=== PATIENT | female | born 1980 | race Caucasian/White ===

== ENCOUNTER 2023-04-13 13:55 | Emergency (ER) | payer OTHER, SELFPAY ==
[2023-04-13 14:01] VITALS: BP 134/83; PULSE 97; RESP 18; TEMP 36.8; O2SAT 98; BMI 27.4
--- NOTE | 2023-04-13 14:24 | ED.FEMALEGU1 ---
HPI - Female Genitourinary General Chief complaint: Urogenital-Female Stated complaint: PAIN ON L SIDE/POSS. UTI & R FOOT NEEDS XRAY Time Seen by Provider: 04/13/23 14:08 Source: patient Mode of arrival: walk-in Limitations: no limitations History of Present Illness HPI Narrative: urinary symptoms suggestive of UTI began last night - she has prior history of UTI and reported burning and increased urgency and frequency. She then developed pain in the left upper levic and left lower abdomen this morning. She had been diagnosed with ovarian cysts several years ago. No prior diagnosis of kidney stones. No nausea, vomiting, fever or chills. Nothing taken for the pain. Related Data Allergies Allergy/AdvReac Type Severity Reaction Status Date / Time Penicillins Allergy Intermediate Verified 04/13/23 14:03 Sulfa (Sulfonamide Allergy Intermediate Verified 04/13/23 14:03 Antibiotics) Exam Narrative Exam Narrative: Nurses notes and vital signs reviewed and patient is not hypoxic. afebrile General: Well-appearing and in no apparent distress. Skin: Warm, dry, no pallor noted. No rash. Head: Normocephalic, atraumatic. Eye: Pupils are equal, round and EOMI. No scleral icterus. Cardiovascular: Regular Rate and Rhythm without murmur, gallop or rub. Respiratory: No accessory muscle use or respiratory distress. Lungs are clear to auscultation, no wheezing, rales or rhonchi Back: No CVA tenderness Musculoskeletal: normal ROM. Bony and soft tissue tenderness to the right 5th toe without any right mid-foot or 5th metatarsal tenderness GI: Abdomen is soft, non-distended. Normal bowel sounds. No abdominal or adnexal masses appreciated. LLQ tenderness to palpation. No rebound, guarding, or rigidity noted. Neurological: A&O x4. No cranial nerve dysfunction observed. No truncal ataxia. Moves all extremities. Sensation intact. Psychiatric: Cooperative and interactive. Normal mood and affect. Constitutional Vital Signs, click to edit/add: Last Vital Signs Temp 98.2 F 04/13/23 14:01 Pulse 97 H 04/13/23 14:01 Resp 18 04/13/23 14:01 BP 134/83 04/13/23 14:01 Pulse Ox 98 04/13/23 14:01 O2 Del Method Room Air 04/13/23 14:01 Course Vital Signs Vital signs: Vital Signs Temperature 98.2 F 04/13/23 14:01 Pulse Rate 97 H 04/13/23 14:01 Respiratory Rate 18 04/13/23 14:01 Blood Pressure 134/83 04/13/23 14:01 Pulse Oximetry 98 04/13/23 14:01 Oxygen Delivery Method Room Air 04/13/23 14:01 Temperature 98.2 F 04/13/23 14:01 Pulse Rate 97 H 04/13/23 14:01 Respiratory Rate 18 04/13/23 14:01 Blood Pressure 134/83 04/13/23 14:01 Pulse Oximetry 98 04/13/23 14:01 Oxygen Delivery Method Room Air 04/13/23 14:01 MDM - Female Genitourinary MDM Narrative Medical decision making narrative: Patient's urine sent for testing and she was found to have UTI. CT abd/pelvis revealed, according to the radiologist. She was informed of results and discharged home with prescription for Cipro. Lab Data Attestation: I reviewed the patient's lab results. Labs: Lab Results 04/13/23 Range/Units 14:22 Urine Color Brown A (YELLOW) Urine Clarity Clear (CLEAR) Urine pH 6.0 (5.0-9.0) Ur Specific [place] 1.025 (1.005-1.025) Urine Protein 30 A (NEG/TRACE) mg/dL Urine Glucose (UA) Negative (NEGATIVE) mg/dL Urine Ketones Negative (NEGATIVE) mg/dL Urine Occult Blood Moderate A (NEGATIVE) Urine Nitrite Negative (NEGATIVE) Urine Bilirubin Negative (NEGATIVE) Urine Urobilinogen 0.2 (0.2-1.0) EU/dL Ur Leukocyte Esterase Moderate A (NEGATIVE) Urine RBC 10-20 A (0-2) #/HPF Urine WBC 20-50 A (NONE SEEN) #/HPF Ur Squamous Epith Cells Moderate A (NONE/RARE) #/LPF Urine Crystals None seen (None Seen) #/HPF Urine Bacteria Trace A (NONE SEEN) #/HPF Urine Casts None seen (NONE SEEN) #/LPF Urine Mucus Trace A (NONE SEEN) Ur Culture Indicated? Yes Imaging Data CT scan - abdomen: Radiologist's impression: Patient Name: SUSANA LOYOLA MRN: [id number] date: 1980 Sex: F Assigned Patient Location: ER Current Patient Location: ER Accession/Order Number: [id number] Exam Date: 04/13/2023 14:54 Report Date: 04/13/2023 15:12 At the request of: ALLYSSA DE LA CRUZ Procedure: CT abdomen pelvis wo con CT abdomen pelvis wo con CLINICAL HISTORY: Left flank/left lower quadrant abdominal pain. Dysuria. Urinary tract infection. COMPARISON: None Available. TECHNIQUE: No IV contrast axial CT scan from lung bases through symphysis pubis. Lack of IV contrast limits evaluation of solid organs. Oral contrast was not administered. Coronal and sagittal reconstructed images generated. Dose reduction techniques were achieved by using automated exposure control and/or adjustment of mA and/or kV according to patient size and/or use of iterative reconstruction technique. FINDINGS: CT ABDOMEN FINDINGS: Normal heart size. Lung bases clear. Liver and spleen normal in size. Normal sized adrenal glands. Gallbladder and pancreas unremarkable. No renal stones or hydronephrosis. No perinephric edema. Normal caliber abdominal aorta. GI tract nondilated without obstruction. Appendix negative. No significant inflammatory changes or ascites. CT PELVIS FINDINGS: Uterus and ovaries unremarkable for age except for intrauterine device in place. Urinary bladder not well distended but question mild wall thickening and congestion. No bladder stones. No acute bony process. IMPRESSION: Question bladder wall thickening and congestion versus incomplete distention. For possible cystitis changes but correlate with urinalysis. No renal stones, hydronephrosis, or perinephric edema. Intrauterine device. No other acute process seen. Electronically authenticated by: SOCORRO CHIANG Date: 04/13/2023 15:12 Discharge Plan Discharge Chief Complaint: Urogenital-Female Clinical Impression: Urinary tract infection, Abdominal pain Patient Disposition: Home, Self-Care Time of Disposition Decision: 15:34 Instructions: Acute Urinary Retention in Women (ED), Abdominal Pain (ED) Stand Alone Forms: Portal Instructions Referrals: BEA ALFORD [Primary Care Provider] - 1 week
[2023-04-13 14:50] LABS: Bilirubin Urine NEGATIVE (NEGATIVE); Blood Urine MODERATE (NEGATIVE); Clarity Urine CLEAR (CLEAR); Color Urine BROWN (YELLOW); Glucose Urine UA NEGATIVE (NEGATIVE); Ketones Urine NEGATIVE (NEGATIVE); Leukocyte Esterase Urine MODERATE (NEGATIVE); Nitrite Urine NEGATIVE (NEGATIVE); Protein Urine 30 mg/dL (NEG/TRACE); Specific Gravity Urine 1.025 (1.005-1.025); Urobilinogen Urine 0.2 EU/dL (0.2-1.0)
[2023-04-13 14:59] LABS: Urine Microscopic Indicated YES
[2023-04-13 15:01] LABS: Bacteria Urine TRACE #/HPF (NONE SEEN); Cast Seen? NONE SEEN #/LPF (NONE SEEN); Crystals Seen? None Seen #/HPF (None Seen); Mucus Urine TRACE (NONE SEEN); Squamous Epithelial Cell Urine MODERATE #/LPF (NONE/RARE); Urine Culture Indicated YES; WBC Urine 20-50 #/HPF (NONE SEEN)
--- NOTE | 2023-04-15 11:34 | PC.NURSE ---
04/15/[address] coyle reviewed pt urine c+s from 04/11/23 called and pt called back updated need to stop macrobid start keflex 500 mg po TID times 10 days called to [facility]im[facility] alvares in [place] per pt request. sent c+s result to dr granados. Leo Rice RN
--- NOTE | 2023-04-15 11:37 | PC.NURSE ---
04/15/[address] coyle reviewed c+s from urine on 04/13/[address] this time. Myron GANDARA
== END 2023-04-13 15:48 | disposition home or self-care (01) ==
PROVIDERS: Emergency Provider Emergency Medicine; PCP Nurse Practitioner Family
DX: R10.9 Unspecified abdominal pain (principal); N39.0 Urinary tract infection, site not specified; S99.921A Unspecified injury of right foot, initial encounter; W22.8XXA Striking against or struck by other objects, initial encounter; Z87.440 Personal history of urinary (tract) infections
CPT/HCPCS: 74176; 81001; 87086; 87150; 87186; 99284

== ENCOUNTER 2023-06-25 02:57 | Emergency (ER) | payer OTHER, SELFPAY ==
[2023-06-25 02:58] VITALS: BP 141/95; PULSE 83; RESP 16; TEMP 36.6; O2SAT 97; BMI 28.1
--- NOTE | 2023-06-25 03:20 | ED.UPPEXIN1 ---
HPI - Extremity Injury (Upper) General Chief Complaint: Extremity Injury, Upper Stated Complaint: l index finger pain Time Seen by Provider: 06/25/23 03:05 Source: patient Mode of arrival: walk-in History of Present Illness HPI narrative: Presenting to us with a left index pain that started after she pulled a piece of skin by her mouth the patient does have the habit of biting her nails, the patient is complaining of pain that started tonight and woke her up from sleep she denies any other complaints before this incident happened late last night There is no other complaints the patient denies any other pathology Related Data Home Medications Medication Instructions Recorded Confirmed fluticasone propionate 50 intranasal 06/25/23 mcg/actuation nasal spray,suspension minoxidil 2.5 mg tablet mg 06/25/23 pantoprazole 40 mg tablet,delayed mg PO 06/25/23 release rizatriptan 10 mg tablet mg 06/25/23 spironolactone 50 mg tablet mg 06/25/23 Previous Rx's Medication Instructions Recorded phenazopyridine 200 mg tablet 200 mg PO Q8H PRN dysuria 6 doses 04/13/23 (Pyridium) #6 tabs doxycycline hyclate 100 mg capsule 100 mg PO BID 7 days #14 caps 06/25/23 ibuprofen 600 mg tablet 600 mg PO TID PRN pain #20 tabs 06/25/23 Allergies Allergy/AdvReac Type Severity Reaction Status Date / Time Penicillins Allergy Intermediate Verified 04/13/23 14:03 Sulfa (Sulfonamide Allergy Intermediate Verified 04/13/23 14:03 Antibiotics) Review of Systems ROS Status of ROS 10 or more systems reviewed and unremarkable except as noted in history and below [facility] Social History Smoking status: Current every day smoker Exam Narrative Exam Narrative: Nurses notes and vital signs reviewed and patient is not hypoxic. General: Well-appearing and in no apparent distress. Skin: Warm, dry, no pallor noted. No rash. Head: Normocephalic, atraumatic. Neck: Supple, non-tender. Eye: Pupils are equal, round and EOMI. No scleral icterus. Ears, Nose, Mouth, and Throat: TM are clear, no nasal mucosal hypertrophy. Oral mucosa is moist, no posterior oropharynx erythema, uvula is mid-line Cardiovascular: Regular Rate and Rhythm without murmur, gallop or rub. Respiratory: No accessory muscle use or respiratory distress. Lungs are clear to auscultation, no wheezing, rales or rhonchi Chest Wall: no tenderness Back: No midline thoracic or lumbar vertebral tenderness. No CVA tenderness Musculoskeletal: normal ROM, no calf or popliteal tenderness the patient have a mild swelling to the lateral side of the nail bed , there is redness and tenderness no pus collection GI: Abdomen is soft, non-distended. Normal bowel sounds. No masses appreciated. No tenderness to palpation. No rebound, guarding, or rigidity noted. Neurological: A&O x4. No cranial nerve dysfunction observed. No truncal ataxia. Moves all extremities. Sensation intact. Psychiatric: Cooperative and interactive. Normal mood and affect. Constitutional Vital Signs, click to edit/add: Last Vital Signs Temp 97.8 F 06/25/23 02:58 Pulse 83 06/25/23 02:58 Resp 16 06/25/23 02:58 BP 141/95 H 06/25/23 02:58 Pulse Ox 97 06/25/23 02:58 Course Vital Signs Vital signs: Vital Signs Temperature 97.8 F 06/25/23 02:58 Pulse Rate 83 06/25/23 02:58 Respiratory Rate 16 06/25/23 02:58 Blood Pressure 141/95 H 06/25/23 02:58 Pulse Oximetry 97 06/25/23 02:58 Temperature 97.8 F 06/25/23 02:58 Pulse Rate 83 06/25/23 02:58 Respiratory Rate 16 06/25/23 02:58 Blood Pressure 141/95 H 06/25/23 02:58 Pulse Oximetry 97 06/25/23 02:58 MDM - Extremity Injury (Upper) MDM Narrative Medical decision making narrative: Patient presenting to us with paronychia mild right now she was started on antibiotic as well as NSAID for pain management The patient to continue putting her finger in warm water for the next 2 days The patient is to follow up with primary care physician in next 2-3 days or to return to the emergency department should any of the signs or symptoms worsen or new symptoms develop. The patient agrees with the following Diagnosis and Treatment plan and the patient will be discharged home. Discharge Plan Discharge Chief Complaint: Extremity Injury, Upper Clinical Impression: Paronychia Patient Disposition: Home, Self-Care Time of Disposition Decision: 03:13 Condition: Good Prescriptions / Home Meds: New doxycycline hyclate 100 mg capsule 100 mg PO BID 7 Days Qty: 14 0RF ibuprofen 600 mg tablet 600 mg PO TID PRN (Reason: pain) Qty: 20 0RF No Action rizatriptan 10 mg tablet minoxidil 2.5 mg tablet pantoprazole 40 mg tablet,delayed release (DR/EC) PO fluticasone propionate 50 mcg/actuation spray,suspension INTRANASAL spironolactone 50 mg tablet phenazopyridine [Pyridium] 200 mg tablet 200 mg PO Q8H PRN (Reason: dysuria) Qty: 6 0RF Instructions: Paronychia (ED) Stand Alone Forms: Portal Instructions Referrals: BEA ALFORD [Primary Care Provider] - 1 week
[2023-06-25] MEDS: DOXYCYCLINE MONOHYDRATE 100 MG CAPSULE PO (03:29)
== END 2023-06-25 03:36 | disposition home or self-care (01) ==
LOC: ER 03:20
PROVIDERS: Emergency Provider Emergency Medicine; PCP Nurse Practitioner Family
DX: L03.012 Cellulitis of left finger (principal); Z79.899 Other long term (current) drug therapy; F17.210 Nicotine dependence, cigarettes, uncomplicated
CPT/HCPCS: 99283

== ENCOUNTER 2024-11-12 07:36 | Emergency (ER) | payer BC, SELFPAY ==
[2024-11-12 07:45] VITALS: BP 133/88; PULSE 88; TEMP 36.8; O2SAT 98; BMI 29.0
--- OUTSIDE RECORDS SUMMARY | 2024-11-12 07:45 | XMS_ITS | CCD ---
Author Organization [facility] Care Team Providers Care Brand Protection Manager Name Role Phone Melquiades Gupta Unavailable Unavailable [place] Attending Unavailable [place] Referring Unavailable Bozena Carlson Primary Care Unavaila Nunu Sorto Attending Unavailable RobynBozena Referring Unavaila ble Robyn, Bozena Chang Primary Care Unavaila Nunu Sorto Attending Unavailable *SELF, REFERRED Referring Unavailable Robyn, Bozena Chang Primary Care Unavaila MARCELLO Chiang Attending Unavailable FENOHR, JULIETH M Primary Care Unavailable FENOHR, JULIETH M Attending Unavailable FENOHR, JULIETH M Referring Unavailable FENOHR, JULIETH M Primary Care Unavailable NATALYA SONI Attending Unavailable FENOHR, JULIETH M Primary Care Unavailable SHWETA NAVA Attending Unavailable FARFAN, KHUSHBU Primary Care Unavailable TAMMY AMAYA Attending Unavailable FARFAN, KHUSHBU Primary Care Unavailable Ting Sonie Unavailable Unavailable Maribel Boone Unavailable Unavailable Farfan, Khushbu Unavailable Unavailable Kwaku, Bozena Unavailable Unavailable Robyn, Bozena M Unavailable Unavailable Fenohr, Julieth M Unavailable Unavailable FlorianWoodyer S Unavailable Unavailable Farfan, Khushbu E Unavailable Unavailable LeobardoyakKvngie A Unavailable Unavailable Robyn, Bozena M Unavailable Unavailable LISA MILLER Referring Unavailable PROVIDER, UNKNOWN Admitting Unavailable PROVIDER, UNKNOWN Attending Unavailable ROBYN, BOZENA Primary Care Unavailable Shruthi Gonzalez MD Primary Care Provider [phone] Nunu Camacho CNP Unavailable [phone] Nunu Camacho Unavailable Shruthi Gonzalez MD Primary Care Provider [phone] Symone Camacho CNPnifer M Unavailable KRISTA Camachonifer Primary Care Provider MD Riley Phelan Jr Emergency Provider Shruthi Gonzalez MD Primary Care Provider [phone] Janice VICKNunu M Unavailable MISJaime, DR ARTHUR Primary Care Unavailable THANG VAZ Admitting Unavailable THANG VAZ Attending Unavailable ZANDER SHAW Consulting Unavailable OSCAR SORIA Consulting Unavailable THANG VAZ Consulting Unavailable Bozena Carlson DO Primary Care Provider Shruthi Gonzalez MD Primary Care Provider [phone] Janice VICK, Nunu Param Unavailable KRISTA Camachonifer Primary Care Provider KRISTA Camacho Attending Provider Bozena Carlson DO Primary Care Provider CYNDIE DELGADO Referring Unavailable VERA MOURA Attending Unavailable SHRUTHI GONZALEZ Primary Care Unavailable Janice VICKNunu Param Unavailable VERA TADEO Attending Unavailable BRICE ALLISON Attending Unavailable BRICE ALLISON Referring Unavailable BRICE ALLISON Attending Unavailable Janice MARIE Nunu Param Unavailable Unallocated , Noms Provider Primary Care Provi bernardo David Saleem MD Unavailable Nunu Camacho DNP Primary Care Provider Zackary Espinoza DO Emergency Provider Nunu Camacho Primary Care Unavailable Zackary Espinoza Attending Unavailable Zackary Espinoza Admitting Unavailable Allergies Allergy Classification Reported Allergen(s) Allergy Type Date of Onset Reaction(s) Facility (7 sources) Penicillins; Translations: [PENICILLINS] Drug allergy (disorder) 10-13-19 05 AOF, Difficulty Breathing [facility] Repository (6 sources) Sulfonamides (Antibiotic); Translations: [SULFA (SULFONAMIDE ANTIBIOTICS)] Drug allergy (disorder) 09-19-19 11 AOF, Difficulty Breathing [facility] Repository (4 sources) Penicillins; Translations: [Penicillins] drug allergy [facility] Work Phone: (4 sources) S[facility] (Antibiotic) [facility] (5 sources) Sulfonamides (Antibiotic); Translations: [SULFA ANTIBIOTICS] drug allergy 04-27-20 14 [facility] Repository (4 sources) Sulfonamides (Antibiotic) drug allergy [facility] Work Phone: (8 sources) Fluorescein; Translations: [FLUORESCEIN] Drug Allergy 04-19-20 20 Other: See Comments [facility] (7 sources) Penicillins Drug Allergy 10-13-19 05 Intolerance, Rash [facility] (19 sources) Sulfonamides (Antibiotic) Drug Allergy 09-19-19 11 Intolerance, Rash, Swelling, Anaphylaxis, GI intolerance, Unknown [facility] Work Phone: (4 sources) Penicillins Drug allergy Unknown [facility] Other (4 sources) sulfaSALAzine Drug Allergy Unknown [facility] Other (5 sources) Penicillins Drug Allergy 10-13-19 05 Intolerance, Rash [facility] (10 sources) Penicillin Drug Allergy 10-13-19 05 Rash, Anaphylaxis, GI intolerance, Swelling, Unknown [facility] (3 sources) Sulfonamide Drug allergy Unknown [facility] Other (1 source) Penicillin Drug Allergy [facility] Repository (1 source) Sulfonamides (Antibiotic) Drug allergy (disorder) [facility] Repository (4 sources) Procaine Drug Allergy 02-13-20 23 Anaphylaxis [facility] (4 sources) Lorri [place] Drug Allergy 04-19-20 20 Headache, Unknown [facility] (2 sources) Gadolinium-Contai naomi Contrast Medi; Translations: [Gadolinium-Conta ining Contrast Medi] Allergy to substance 10-20-19 25 [facility] (2 sources) Iodinated Contrast Media; Translations: [Iodinated Contrast Media] Allergy to substance 10-20-19 25 [facility] Medications Current Medications Medication Drug Class(es) Dates Sig (Normalized) Sig (Original) cholecalciferol 0.05 mg oral capsule (7 sources) Vitamin D Start: 07-18-2022 take 1 capsule by mouth every twenty-four hours Vitamin D3 50 MCG (2000 UT) 1 capsule Orally Once a day for 30 day(s) Jul, Active ciprofloxacin 3 mg/ml ophthalmic solution (3 sources) Quinolone Antimicrobial Start: 07-24-2017 take 1 drop(s) into the eye(s) four times daily ciprofloxacin (CILOXAN) 0.3 % ophthalmic solution Indications: Open-angle glaucoma of left eye, indeterminate stage, unspecified open-angle glaucoma type Place 1 Drop in the left eye 4 times daily. 1 Bottle 3 07/24/2017 Active ferrous sulfate 325 mg oral tablet (7 sources) Start: 07-18-2022 take 1 tablet by mouth once daily at mealtime Ferrous Sulfate 325 (65 Fe) MG 1 tablet Orally daily with food and vitamin C for 30 day(s) Jul, Active Start: 07-18-2022 take 1 tablet by nghia once daily at mealtime Ferrous Sulfate 325 (65 Fe) MG 1 tablet Orally daily with food and vitamin C for 30 day(s) Jul, Active flurbiprofen sodium 0.3 mg/ml ophthalmic solution (3 sources) Nonsteroidal Anti-inflammatory Drug Start: 01-20-2018 take 1 drop(s) into the eye(s) four times daily flurbiprofen (OCUFEN) 0.03 % ophthalmic solution Place 1 Drop in the left eye 4 times daily. 1 Bottle 0 01/20/2018 Active fluticasone propionate 0.05 mg/actuat metered dose nasal spray (20 sources) Corticosteroid Start: 06-03-2021 Fluticasone Propionate (Flonase Allergy Relief) 50 mcg/actuation Witten,Suspension Active 1 SPRAY INTRANASAL Daily June 02, 2021 11:00pm Start: 02-25-2020 take 2 spray(s) by out once daily fluticasone (FLONASE) 50 mcg/actuation nasal spray Use 2 Sprays in each nostril once daily. Rinse mouth after use. 1 Bottle 2 02/25/2020 Active Start: 06-02-2018 take 2 spray(s) nasa l route once daily Fluticasone Propionate 50 MCG/ACT Nasal Suspension USE 2 SPRAYS IN EACH NOSTRIL ONCE DAILY Quantity: 16 Refills: 5 Khushbu Farfan MD Start : 02-Jun-2018 Active fluticasone (Javier nase) 50 MCG/ACT nasal spray 1 spray. Active take 2 spray(s) nasa l route once daily Flonase Allergy Relief 50 MCG/ACT 2 sprays in each nostril Nasally Once a day for 30 day(s) Active Comment on above: Use 2 Sprays in each nostril once daily. Rinse mouth after use. ibuprofen 600 mg oral tablet (15 sources) Nonsteroidal Anti-inflammatory Drug Start: 7 take 1 tablet by mouth every eight hours as needed for pain Ibuprofen 600 mg tablet Active 600 MG PO Q8H as needed for pain April 01, 2022 11:00pm 24 hr metoprolol succinate 25 mg extended release oral tablet (10 sources) beta-Adrenergic Emerald Start: take 1 tablet by mouth every twenty-four hours Metoprolol Succinate 25 mg tablet extended release 24 hr Active MG PO June 02, 2021 11:00pm Start: 06-03-2021 Metoprolol Suc cinate Active MG PO June 03, 2021 12:00am Start: 05-16-2021 End: 06-11-2022 take 1 tablet by mouth once daily metoprolol succinate ER (TOPROL XL) 25 mg 24 hr tablet Take 1 tablet by mouth once daily. 90 tablet 3 05/16/2021 06/11/2022 Discontinued (Course of therapy completed) Comment on above: Take 1 tablet by nghia once daily. moxifloxacin 5 mg/ml ophthalmic solution (3 sources) Quinolone Antimicrobial Start: 01-21-20 take 1 drop(s) into the eye(s) four times daily moxifloxacin (VIGAMOX) 0.5 % ophthalmic solution Place 1 Drop in the left eye 4 times daily. 1 Bottle 0 01/20/2018 Active omeprazole 20 mg delayed release oral capsule (18 sources) Proton Pump Inhibitor Start: 12-20-19 End: 12-20-19 23 take 1 capsule by mouth once daily omeprazole (PRILOSEC) 20 mg capsule Indications: GERD without esophagitis Take 1 capsule by mouth once daily. 90 capsule 3 12/19/2021 06/11/2022 Discontinued (Course of therapy completed) Start: 04-11-2017 take 1 capsule by mo ut once daily omeprazole (PRILOSEC) 40 MG capsule TAKE ONE CAPSULE BY MOUTH DAILY 30 Capsule 2 06/27/2018 Active Comment on above: Take 1 capsule by mo ut once daily. Para-John (12 sources) Para-John Active prednisoLONE acetate 10 mg/ml ophthalmic suspension (6 sources) Corticosteroid Start: 01-21-20 18 prednisoLONE acetate (PRED FORTE) 1 % ophthalmic suspension Place 1 Drop in the left eye every 2 hours while awake. 1 Bottle 0 01/20/2018 Active Vit-Fe Fumarate-FA (VOL-PLUS) 27-1 MG TABS (3 sources) Start: 08-31-20 16 take 1 tablet by mouth once daily Vit-Fe Fumarate-FA (VOL-PLUS) 27-1 MG TABS Take 1 Tablet by mouth daily. 30 Tablet 11 08/31/2016 Active rizatriptan 10 mg oral tablet (20 sources) Serotonin-1b and Serotonin-1d Receptor Agonist Start: 10-19-19 25 End: 11-19-19 25 rizatriptan (Maxalt) 10 MG tablet Indications: Cervicogenic migraine (CMS/HCC) Take 1 tablet (10 mg) by mouth 1 (one) time if needed for migraine May repeat in 2 hours if unresolved. Do not exceed 30 mg in 24 hours. 9 tablet 5 11/11/2024 Active Start: 06-03-2021 Rizatriptan Ac tive MG TABLET June 03, 2021 12:00am Start: 04-25-2018 End: 07-01-2023 Rizatriptan 10 mg tablet Act vazquez MG TABLET June 02, 2021 11:00pm Comment on above: 1 tab at earliest si gn of migraine. May repeat once in 2 hours if needed. Give max allowed per insurance. 1 tab at earliest si gn of migraine. May repeat once in 2 hours if needed. No more than 2 doses in 24 hours. Max 9 days a month. sodium chloride 0.111 meq/ml nasal solution (3 sources) Start: 11-17-19 17 sodium chloride (SALINE MIST) 0.65 % nasal spray Indications: Acute bacterial sinusitis Witten 1 Witten into each nostril as needed for Congestion. 1 Bottle 3 11/16/2016 Active spironolactone 50 mg oral tablet (5 sources) Aldosterone Antagonist take 1 tablet by mouth every twenty-four hours Spironolactone 50 MG 1 tablet Orally Once a day Active SUMAtriptan (3 sources) Serotonin-1b and Serotonin-1d Receptor Agonist SUMAtriptan Succinat e (IMITREX ORAL) Take by mouth. 0 Active Completed/Discontinued Medications Medication Drug Class(es) Dates Sig (Normalized) Sig (Original) amitriptyline hydrochloride 10 mg oral tablet (1 source) Tricyclic Antidepressant Start: 07-04-2023 take 1 tablet by mouth once daily at bedtime amitriptyline (ELAVIL) 10 mg tablet Take 1 tablet by mouth daily at bedtime. 90 tablet 3 07/04/2023 Active Comment on above: Take 1 tablet by nghia th daily at bedtime. B Complex-Folic Acid (B COMPLEX 100) 0.4 mg tab (7 sources) Start: 05-16-2021 take 1 tablet by mouth once daily B Complex-Folic Acid (B COMPLEX 100) 0.4 mg tab Take 1 tablet by mouth once daily. 0 05/16/2021 Active Comment on above: Take 1 tablet by nghia th once daily. copper 313 mg drug implant (11 sources) Copper-containing Intrauterine Device Start: 07-14-2020 copper (PARAGARD T 380A) 380 square mm intrauterine device 1 Intra Uterine Device by INTRAUTERINE route continuous. IUD lot #: [id number] Exp date: 2025 1 Intra Uterine Device 0 07/14/2020 Active copper (Paragard ) IUD Paragard Intrauterine Copper Active Comment on above: 1 Intra Uterine Sayra ce by INTRAUTERINE route continuous. IUD lot #: [id number] Exp date: 2025 doxycycline hyclate 100 mg oral tablet (8 sources) Tetracycline-class Drug Start: take 1 tablet by mouth every twelve hours Doxycycline Hyclate 100 MG 1 tablet Orally every 12 hrs for 10 days Sep, Not-Taking Start: 11-16-2021 take 1 tablet by nghia th every twelve hours Doxycycline Hyclate 100 MG 1 tablet Orally every 12 hrs for 10 days Oct, Active loratadine 10 mg oral tablet (20 sources) Start: 12-06-2016 take 1 tablet by mouth once daily as needed loratadine (CLARITIN) 10 mg tablet Take 1 tablet by mouth once daily as needed for Cold/Allergy Symptoms. 90 tablet 1 09/28/2020 Active Comment on above: Take 1 tablet by nghia once daily as needed for Cold/Allergy Symptoms. magnesium oxide 400 mg oral tablet (7 sources) Start: 05-16-2021 take 1 tablet by mouth once daily magnesium oxide (MAG-OX) 400 mg (241.3 mg magnesium) tablet Take 1 tablet by mouth once daily. 0 05/16/2021 Active Comment on above: Take 1 tablet by nghia once daily. methylPREDNISolone (1 source) Corticosteroid Start: 07-04-2023 methylPREDNISolone (MEDROL, WEN,) 4 mg Dose-Pack Take as directed. 21 tablet 0 07/04/2023 Active Comment on above: Take as directed. montelukast 10 mg oral tablet (4 sources) Leukotriene Receptor Antagonist Start: 04-16-2018 take 1 tablet by mouth once daily Montelukast Sodium 10 MG Oral Tablet TAKE 1 TABLET DAILY DIRECTED. Quantity: 30 Refills: 5 Natalya Soni MD Start : 16-Apr-2018 Active mupirocin 0.02 mg/mg topical ointment (3 sources) RNA Synthetase Inhibitor Antibacterial Start: 06-29-2019 Mupirocin 2 % External Ointment APPLY THIN FILM TO AFFECTED AREA 3 TIMES DAILY FOR 7 TO 10 DAYS. Quantity: 1 Refills: 0 Maribel Boone DO Start : 29-Jun-2019 Active 22 GM Tube Prenate Mini 18-0.6-0.4-350 MG Oral Capsule (4 sources) Start: 06-09-2019 Prenate Mini 18-0.6-0.4-350 MG Oral Capsule Quantity: 30 Refills: 0 Start : 09-Jun-2019 Active Start: 06-09-2019 Prenate Mini 1 8-0.6-0.4-350 MG Oral Capsule Quantity: 30 Refills: 0 DO Start : 09-Jun-2019 Active triamcinolone acetonide 0.03493 mg/mg topical ointment (3 sources) Corticosteroid Start: 06-29-2019 Triamcinolone Acetonide 0.025 % External Ointment APPLY 2-3 TIMES DAILY TO AFFECTED AREA(S) UNTIL RESOLVED Quantity: 1 Refills: 0 Maribel Boone DO Start : 29-Jun-2019 Active 80 GM Tube 24 hr verapamil hydrochloride 120 mg extended release oral capsule (3 sources) Calcium Channel Emerald Start: 06-11-2022 take 1 capsule by mouth once daily at bedtime verapamil ER (VERELAN) 120 mg 24 hr capsule Take 1 capsule by mouth daily at bedtime. 30 capsule 11 06/11/2022 Active Comment on above: Take 1 capsule by mo uth daily at bedtime. Problems Active Problems Problem Classification Problem Date Documented Da te Episodic/Chronic Alcohol-related disorders (4 sources) History of alcohol abuse; Translations: [History of alcohol abuse] Episodic Anal and rectal conditions (4 sources) Perirectal abscess; Translations: [History of Perirectal abscess] Episodic Anxiety disorders (20 sources) Mixed anxiety and depressive disorder; Translations: [Generalized anxiety disorder] Onset: 4 Resolved: 6 07-25-2020 Chronic Blindness and vision defects (4 sources) Visual impairment; Translations: [Vision loss of left eye] Chronic Cataract (15 sources) Bilateral cataracts; Translations: [Unspecified cataract] Onset: 8 11-13-2017 Chronic Conditions associated with dizziness or vertigo (4 sources) Vertigo; Translations: [Vertigo] Episodic Deficiency and other anemia (7 sources) Iron deficiency anemia; Translations: [Other iron deficiency anemias] Episodic Deficiency and other anemia (1 source) Other iron deficiency anemias Episodic E Codes: Fall (1 source) Fall (on)(from) sidewalk curb, initial encounter; Translations: [FALL ON FROM SIDEWALK CURB INITIAL] Onset: 3 Episodic Esophageal disorders (11 sources) Gastroesophageal reflux disease; Translations: [Gastroesophageal reflux disease without esophagitis] Onset: 1 12-02-2020 Chronic Essential hypertension (20 sources) Benign essential hypertension; Translations: [Essential hypertension] Onset: 1 12-02-2020 Chronic Genitourinary symptoms and ill-defined conditions (4 sources) History of urinary tract infection; Translations: [History of urinary tract infection] Episodic Glaucoma (20 sources) Glaucoma; Translations: [Unspecified glaucoma] Onset: 7 07-30-2017 Chronic Headache; including migraine (20 sources) Migraine; Translations: [Refractory migraine without aura] Onset: 8 03-14-2018 Chronic Hypertension complicating ; childbirth and the puerperium (7 sources) Pre-existing hypertension in obstetric context; Translations: [Unspecified pre-existing hypertension complicating , unspecified trimester] Onset: 9 10-10-2019 Chronic Inflammation; infection of eye (except that caused by tuberculosis or sexually transmitteddisease) (4 sources) Intermediate uveitis; Translations: [Uveitis, intermediate] Episodic Joint disorders and dislocations; trauma-related (4 sources) Traumatic dislocation of ankle joint; Translations: [History of Ankle dislocation, right, sequela] Episodic Mood disorders (20 sources) Bipolar II disorder; Translations: [Bipolar II disorder, most recent episode major depressive] Onset: 4 07-25-2020 Chronic Nonspecific chest pain (4 sources) Chest pain; Translations: [Other chest pain] Episodic Other aftercare (1 source) 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; Translations: [OTH INTERMEDIATE CURRENT DRUG THERAPY] Onset: 3 Episodic Other circulatory disease (4 sources) Elevated blood-pressure reading without diagnosis of hypertension; Translations: [Elevated blood pressure reading without diagnosis of hypertension] Episodic Other connective tissue disease (4 sources) Plantar fasciitis; Translations: [Plantar fasciitis, bilateral] Episodic Other connective tissue disease (8 sources) Calcaneal spur; Translations: [Calcaneal spur of left foot] Episodic Other connective tissue disease (4 sources) H/O: musculoskeletal disease; Translations: [History of sprain of ankle] Episodic Other connective tissue disease (4 sources) Prepatellar bursitis; Translations: [Prepatellar bursitis of left knee] Episodic Other connective tissue disease (3 sources) Infrapatellar bursitis of left knee; Translations: [Other bursitis of knee, left knee] 04-02-2022 Episodic Comment on above: Problem List clean-u p per request of Phys. EHR Cmte Other ear and sense organ disorders (4 sources) Hearing loss of left ear; Translations: [Hearing loss, left] Chronic Other ear and sense organ disorders (4 sources) Unilateral sensorineural hearing loss with unrestricted hearing on the contralateral side; Translations: [Sensorineural hearing loss (SNHL) of left ear with unrestricted hearing of right ear] Episodic Other female genital disorders (4 sources) Postcoital bleeding; Translations: [History of PCB (post coital bleeding)] Chronic Other female genital disorders (1 source) Abnormal uterine and vaginal bleeding, unspecified; Translations: [Abnormal uterine and vaginal bleeding, unspecified] Onset: 5 Chronic Other female genital disorders (4 sources) History of abnormal cervical Papanicolaou smear ; Translations: [History of abnormal cervical Papanicolaou smear] Episodic Other gastrointestinal disorders (12 sources) Heartburn; Translations: [Heartburn] Episodic Other gastrointestinal disorders (1 source) Heartburn Episodic Other infections; including parasitic (4 sources) H/O: viral illness; Translations: [History of viral infection] Episodic Other injuries and conditions due to external causes (3 sources) Injury of face; Translations: [Unspecified injury of face, initial encounter] 06-03-2021 Episodic Comment on above: Problem List clean-u p per request of Phys. EHR Cmte Other nervous system disorders (4 sources) Personal history of other diseases of the nervous system and sense organs; Translations: [History of uveitis] Episodic Other nervous system disorders (3 sources) Paresthesia; Translations: [Paresthesia of skin] 04-02-2022 Episodic Comment on above: Problem List clean-u p per request of Phys. 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] Episodic Other non-traumatic joint disorders (4 sources) Pain in left knee; Translations: [PAIN IN LEFT KNEE] Onset: 3 Episodic Other non-traumatic joint disorders (1 source) Effusion, right elbow; Translations: [EFFUSION RIGHT ELBOW] Onset: 3 Episodic Other nutritional; endocrine; and metabolic disorders (4 sources) Body mass index 25-29 - overweight; Translations: [BMI 27.0-27.9,adult] Chronic Other nutritional; endocrine; and metabolic disorders (12 sources) Body mass index 25-29 - overweight; Translations: [Overweight] Episodic Other screening for suspected conditions (not mental disorders or infectious disease) (6 sources) care status; Translations: [Patient encounter status] Episodic Other skin disorders (1 source) Nonscarring hair loss, unspecified Episodic Other upper respiratory disease (10 sources) Seasonal allergic rhinitis; Translations: [Other allergic rhinitis] Chronic Other upper respiratory disease (1 source) Other allergic rhinitis Chronic Other upper respiratory disease (3 sources) Perennial allergic rhinitis with seasonal variation; Translations: [Other allergic rhinitis] Onset: 5 02-01-2015 Chronic Other upper respiratory infections (2 sources) Acute maxillary sinusitis, unspecified Onset: 2 Resolved: 2 Episodic Otitis media and related conditions (4 sources) Acute otitis media; Translations: [Acute otitis media] Episodic Residual codes; unclassified (6 sources) Nicotine-filled electronic cigarette user; Translations: [Tobacco use] Episodic Residual codes; unclassified (1 source) Tobacco use Episodic Rheumatoid arthritis and related disease (16 sources) Juvenile rheumatoid arthritis; Translations: [Unspecified juvenile rheumatoid arthritis of unspecified site] Chronic Skin and subcutaneous tissue infections (8 sources) Abscess of buttock; Translations: [Infection of skin] Episodic Spondylosis; intervertebral disc disorders; other back problems (4 sources) Chronic low back pain; Translations: [Chronic low back pain] Episodic Sprains and strains (4 sources) Sprain of calcaneofibular ligament; Translations: [Sprain of calcaneofibular ligament of right ankle, initial encounter] Episodic Substance-related disorders (8 sources) Tobacco dependence syndrome; Translations: [Nicotine dependence, cigarettes, uncomplicated] Onset: 4 08-05-2014 Chronic Superficial injury; contusion (2 sources) Contusion of left knee, initial encounter; Translations: [Abrasion, left knee, initial encounter] Onset: 3 Episodic Viral infection (16 sources) Human papilloma virus infection; Translations: [Papillomavirus as the cause of diseases classified elsewhere] Episodic Past or Other Problems Problem Classification Problem Date Documented Date Episodic/Chronic Abdominal pain (1 source) Left upper quadrant abdominal tenderness Onset: 07-26-2021 Resolved: 07-26-2021 Episodic Contraceptive and procreative management (3 sources) Intrauterine contraceptive device in situ; Translations: [Presence of (intrauterine) contraceptive device] Onset: 08-05-2014 12-17-2018 Episodic External cause codes: Natural/environment (4 sources) Bitten or stung by nonvenomous insect and other nonvenomous arthropods, initial encounter; Translations: [Insect bite] Headache; including migraine (20 sources) Chronic daily headache; Translations: [Chronic daily headache] Onset: 03-14-2018 10-10-2019 Episodic Immunizations and screening for infectious disease (3 sources) Exposure to sexually transmissible disorder; Translations: [Contact with and (suspected) exposure to infections with a predominantly sexual mode of transmission] Onset: 02-14-2012 11-16-2016 Episodic Nutritional deficiencies (11 sources) Vitamin D deficiency; Translations: [Vitamin D deficiency, unspecified] Onset: 11-18-2014 Resolved: 09-29-2015 Chronic Other ear and sense organ disorders (3 sources) Conductive hearing loss, bilateral; Translations: [Conductive hearing loss, bilateral] Onset: 02-01-2015 Resolved: 09-29-2015 09-29-2015 Chronic Other non-traumatic joint disorders (7 sources) Hip pain; Translations: [Pain in right hip] Onset: 08-02-2019 10-10-2019 Episodic Other nutritional; endocrine; and metabolic disorders (1 source) Overweight Onset: 07-26-2021 Resolved: 07-26-2021 Episodic Unclassified (4 sources) History of influenza vaccination; Translations: [History of influenza vaccination] Unclassified (4 sources) History of clinical finding in subject; Translations: [History of itching] NEGATED: Highlighted row has not occurred!Residual codes; unclassified (20 sources) Disease Episodic Results Test Name Value Interpretation Reference Range Facility XR SHOULDER 2+ VIEWS LEFTon 12-03-2023 XR SHOULDER 2+ VIEWS LEFT EXAMINATION/TECHNIQUE: XR SHOULDER 2+ VIEWS LEFT, XR WRIST 3+ VIEWS RIGHT HISTORY: Left shoulder and right wrist pain. COMPARISON: None RESULT: Left shoulder: No acute fracture. No dislocation. Glenohumeral joint space maintained. Mild degenerative changes of the acromioclavicular joint. Acromiohumeral interval maintained. Visualized lung grossly clear. Right wrist: No evidence for acute fracture. No dislocation. Few small osteophytes. Joint spaces appear maintained. Soft tissues unremarkable. IMPRESSION: No acute osseous findings involving the left shoulder, or right wrist. ELECTRONICALLY SIGNED BY: Tom Sam MD Normal Not Available XR WRIST 3+ VIEWS RIGHTon XR WRIST 3+ VIEWS RIGHT EXAMINATION/TECHNIQUE: XR SHOULDER 2+ VIEWS LEFT, XR WRIST 3+ VIEWS RIGHT HISTORY: Left shoulder and right wrist pain. COMPARISON: None RESULT: Left shoulder: No acute fracture. No dislocation. Glenohumeral joint space maintained. Mild degenerative changes of the acromioclavicular joint. Acromiohumeral interval maintained. Visualized lung grossly clear. Right wrist: No evidence for acute fracture. No dislocation. Few small osteophytes. Joint spaces appear maintained. Soft tissues unremarkable. IMPRESSION: No acute osseous findings involving the left shoulder, or right wrist. ELECTRONICALLY SIGNED BY: Tom Sam MD Normal Not Available XR ELBOW RT MIN 3 VIEWSon XR ELBOW RT MIN 3 VIEWS EXAM: XR ELBOW RT MIN 3 VIEWS HISTORY: C/O: a pain COMPARISON: None. TECHNIQUE: AP, lateral, oblique radiographs of the elbow labeled right FINDINGS: There are multiple well-corticated ossifications at the lateral epicondyle. Osteophytes at the ulna. Osteophyte at the radial neck. A 0.2 cm osseous body is present. Elbow joint effusion is present. No discrete fracture or dislocation. IMPRESSION: 1. Elbow joint effusion is present. This raises concern for radiographically occult fracture. 2. No fracture or dislocation identified. Osteoarthritis and remote posttraumatic changes as detailed above. Electronically authenticated by: TY DOMINGO Date: 2022-09-08 11:11 Normal [facility] XR KNEE LT 4V or >on 023 XR KNEE LT 4V or > LEFT KNEE X-RAY, 4 V IEWS HISTORY: Pain. COMPARISON: None. FINDINGS: There is no acute fracture or dislocation. There is a small marginal osteophyte at the lateral patellofemoral joint. There is no joint effusion. IMPRESSION: No acute bony abnormality. Electronically authenticated by: ZANDER SHAW Date: 2022-09-08 11:11 Normal [facility] Complete Blood Count Auto Di ffon 07-10-2022 Basophils (Bld) [#/Vol] 0.530218161 10*3/uL Normal 0.0-0.2 10*3/uL [facility] Other Basophils/100 WBC (Bld) 1.000 % . % [facility] Other Eosinophils (Bld) [#/Vol] 0.526008216 10*3/uL Normal 0.0-0.45 10*3/uL [facility] Other Eosinophils/100 WBC (Bld) 0.700 % . % [facility] Other Erythrocyte distribution width (RBC) [Ratio] 12.900 % Normal 11.9-15.3 % [facility] Other Hematocrit (Bld) [Volume fraction] 37.100 % Normal 34.0-46.4 % [facility] Other Hemoglobin (Bld) [Mass/Vol] 12.397689 g/dL Normal 11.8-15.4 g/dL [facility] Other Lymphocytes (Bld) [#/Vol] 1.327564090 10*3/uL Normal 1.00-4.8 10*3/uL [facility] Other Lymphocytes/100 WBC (Bld) 14.000 % . % [facility] Other MCH (RBC) [Entitic mass] 29.8000 pg Normal 24.7-34.3 pg [facility] Other MCV (RBC) [Entitic vol] 87.7000 fL Normal 80-100 fL [facility] Other Monocytes (Bld) [#/Vol] 0.594829440 10*3/uL Normal 0.0-0.8 10*3/uL [facility] Other Monocytes/100 WBC (Bld) 6.400 % . % [facility] Other Neutrophils (Bld) [#/Vol] 7.773556700 10*3/uL Normal 1.8-7.7 10*3/uL [facility] Other Neutrophils/100 WBC (Bld) 77.900 % . % [facility] Other Platelet mean volume (Bld) [Entitic vol] 10.6000 fL Normal 6.3-10.7 fL [facility] Other Platelets (Bld) [#/Vol] 273 10*3/uL Normal 150-450 10*3/uL [facility] Other RBC (Bld) [#/Vol] 4.5163594197 10*6/uL Normal 3. 60-5.00 10*6/uL [facility] Other WBC (Bld) [#/Vol] 9.679027075 10*3/uL Normal 3.8 -11.6 10*3/uL [facility] Other Complete Blood Count Auto Diff 9.1 10*3/uL Normal 4.5-11.0 10*3/uL [facility] Other Complete Blood Count Auto Diff 34.0 g/dL Normal 32.0-35.0 g/dL [facility] Other Complete Blood Count Auto Diff 0.1 % Normal 0-0.5 % [facility] Other Comprehensive Metabolic Pane price 07-10-2022 Albumin [Mass/Vol] 4.054092 g/dL Normal 3.2-5.5 g/dL [facility] Other Albumin/Globulin [Mass ratio] 1.5 {ratio} [facility] Other ALP [Catalytic activity/Vol] 93 U/L High 32-92 U/L [facility] Other ALT [Catalytic activity/Vol] 15 U/L Normal 10-60 U/L [facility] Other AST [Catalytic activity/Vol] 14 U/L Normal 10-42 U/L [facility] Other Bilirubin [Mass/Vol] 0.9555048 mg/dL Normal 0.3- 1.2 mg/dL [facility] Other Calcium [Mass/Vol] 9.9028472 mg/dL Normal 8.2-10 .2 mg/dL [facility] Other Chloride [Moles/Vol] 102 mmol/L Normal 95-114 mmol/L [facility] Other CO2 [Moles/Vol] 27.94770124 mmol/L Normal 22.0-3 0.0 mmol/L [facility] Other Creatinine [Mass/Vol] 0.73294851 mg/dL Normal 0.44-1.03 mg/dL [facility] Other Glucose [Mass/Vol] 85 mg/dL Normal 70-100 mg/dL [facility] Other Potassium [Moles/Vol] 4.77466349 mmol/L Normal 3.5-5.1 mmol/L [facility] Other Protein [Mass/Vol] 6.505389 g/dL Normal 6.1-7.9 g/dL [facility] Other Sodium [Moles/Vol] 135 mmol/L Low 136-146 mmol/L [facility] Other Urea nitrogen [Mass/Vol] 7 mg/dL Low 9-23 mg/dL [facility] Other Comprehensive Metabolic Panel > 60 [facility] Other Comprehensive Metabolic Panel 2.6 g/dL [facility] Other FE PROon 07-10-2022 Ferritin [Mass/Vol] 9.1979335 ng/mL Low 11-30 6.8 ng/mL [facility] Other Iron [Mass/Vol] 31 ug/dL Low 40-150 ug/dL [facility] Other Transferrin [Mass/Vol] 257 mg/dL Normal 180-380 mg/dL [facility] Other FE PRO 360 ug/dL Normal 255-450 ug/dL [facility] Other FE PRO 8.0 % Low 20-50 % [facility] Other Thyroid Stimulating Hormoneo n 07-10-2022 TSH Qn 1.99780485422 m[IU]/L Normal 0.45-5 .33 u[iU]/mL [facility] [employer] Other Vit. B12/Folate Profileon Cobalamin (Vitamin B12) [Mass/Vol] 495 pg/mL Normal 180-914 pg/mL [facility] [employer] Other Vit. B12/Folate Profile 13.6 ng/mL >5.9 ng/mL [facility] [employer] Other Vitamin D 25 Hydroxy Totalon 07-10-2022 Vitamin D 25 Hydroxy Total 27.7 ng/mL Low 30-100 ng/mL [facility] [employer] Other Automated epithelial cells c ount in urine sediment (number/area)Ordered By: Riley Phelan on 04-02-2022 Epithelial cells Auto (Urine sed) [#/Area] 0-1 [HPF] 0-2 [facility] Automated erythrocytes count in urine sediment (number/area)Ordered By: Riley Phelan on 04-02-2022 RBC Auto (Urine sed) [#/Area] 50-100 [HPF] 0-4 [facility] Automated leukocytes count i n urine sediment (number/area)Ordered By: Riley Phelan on 04-02-2022 WBC Auto (Urine sed) [#/Area] 0-1 [HPF] 0-4 [facility] Basophils Auto (Bld) [#/Vol] Ordered By: Riley Phelan on 04-02-2022 Basophils (Bld) [#/Vol] 0.1 10*3/uL 0.0-0.2 [facility] Basophils/100 WBC Auto (Bld) Ordered By: Riley Phelan on 04-02-2022 Basophils/100 WBC (Bld) 1.2 % . [facility] Bilirubin Auto test strip Ql (U)Ordered By: Riley Phelan on 04-02-2022 Bilirubin Ql (U) Negative Negative [facility] Blood hemoglobin measurement (mass/volume)Ordered By: Riley Phelan on 04-02-2022 Hemoglobin (Bld) [Mass/Vol] 11.2 g/dL 11.8-15.4 [facility] Blood leukocytes automated c ount (number/volume)Ordered By: Riley Phelan on 04-02-2022 WBC (Bld) [#/Vol] 7.4 10*3/uL 4.5-11.0 [facility] Body fluid albumin measureme nt (mass/volume)Ordered By: Riley Phelan on 04-02-2022 Albumin (Body fld) [Mass/Vol] 3.9 g/dL 3.2-5.5 [facility] Creatine kinase [Enzymatic a ctivity/volume] in Serum or PlasmaOrdered By: Riley Phelan on 04-02-2022 CK [Catalytic activity/Vol] 129 U/L 22-269 [facility] Creatinine and Glomerular fi ltration rate.predicted panel (S/P/Bld)Ordered By: Riley Phelan on 04-02-2022 Creatinine [Mass/Vol] 0.93 mg/dL 0.44-1.03 [facility] Eosinophils Auto (Bld) [#/Vo l]Ordered By: Riley Phelan on 04-02-2022 Eosinophils (Bld) [#/Vol] 0.1 10*3/uL 0.0-0.45 [facility] Eosinophils/100 WBC Auto (Bl d)Ordered By: Riley Phelan on 04-02-2022 Eosinophils/100 WBC (Bld) 1.3 % . [facility] Erythrocyte distribution wid th Auto (RBC) [Ratio]Ordered By: Riley Phelan on 04-02-2022 Erythrocyte distribution width (RBC) [Ratio] 13.7 % 11.9-15.3 [facility] Estimated glomerular filtrat ion rate (GFR) non- AmericanOrdered By: Riley Phelan on 04-02-2022 GFR/1.73 sq M.predicted among non-blacks MDRD (S/P/Bld) [Vol rate/Area] > 60 mL/Min [facility] Globulin Calc (S) [Mass/Vol] Ordered By: Riley Phelan on 04-02-2022 Globulin (S) [Mass/Vol] 2.8 g/dL [facility] HCG ( test) IA.rapi d Ql (U)Ordered By: Riley Phelan on 04-02-2022 HCG ( test) Ql (U) Negative [facility] Hematocrit Auto (Bld) [Volum e fraction]Ordered By: Riley Phelan on 04-02-2022 Hematocrit (Bld) [Volume fraction] 33.3 % 34.0-46.4 [facility] Ketones Auto test strip (U) [Mass/Vol]Ordered By: Riley Phelan on 04-02-2022 Ketones (U) [Mass/Vol] Negative Negative [facility] Laboratory - Chemistry and C hemistry - challengeOrdered By: Riley Phelan on 04-02-2022 Magnesium [Mass/Vol] 2.1 mg/dL 1.6-2.6 [facility] - Hematology and Cell countsOrdered By: Riley Phelan on 04-02-2022 Nucleated RBC/100 WBC (Bld) [Ratio] 0.0 % 0-0.5 [facility] Lymphocytes Auto (Bld) [#/Vo l]Ordered By: Riley Phelan on 04-02-2022 Lymphocytes (Bld) [#/Vol] 2.8 10*3/uL 1.00-4.8 [facility] Lymphocytes/100 WBC Auto (Bl d)Ordered By: Riley Phelan on 04-02-2022 Lymphocytes/100 WBC (Bld) 37.3 % . [facility] MCH Auto (RBC) [Entitic mass ]Ordered By: Riley Phelan on 04-02-2022 MCH (RBC) [Entitic mass] 29.0 pg 24.7-34.3 [facility] MCHC Auto (RBC) [Mass/Vol]Or dered By: Riley Phelan on 04-02-2022 MCHC (RBC) [Mass/Vol] 33.7 g/dL 32.0-35.0 [facility] MCV Auto (RBC) [Entitic vol] Ordered By: Riley Phelan on 04-02-2022 MCV (RBC) [Entitic vol] 86.1 fL 80-100 [facility] Monocytes Auto (Bld) [#/Vol] Ordered By: Riley Phelan on 04-02-2022 Monocytes (Bld) [#/Vol] 0.5 10*3/uL 0.0-0.8 [facility] Monocytes/100 WBC Auto (Bld) Ordered By: Riley Phelan on 04-02-2022 Monocytes/100 WBC (Bld) 7.3 % . [facility] Neutrophils Auto (Bld) [#/Vo l]Ordered By: Riley Phelan on 04-02-2022 Neutrophils (Bld) [#/Vol] 3.9 10*3/uL 1.8-7.7 [facility] Neutrophils/100 WBC Auto (Bl d)Ordered By: Riley Phelan on 04-02-2022 Neutrophils/100 WBC (Bld) 52.9 % . [facility] No Panel InformationOrdered By: Riley Phelan on 04-02-2022 Estimated GFR () > 60 mL/Min [facility] Comment on above: GFR estimated refere nce range: According to KDOQI guidelines, <60 ml/min/1.73m2 is sufficient to diagnose a patient with chronic kidney disease. Pharmacy Creatinine Clearance (Chem 93.35 [facility] Platelet mean volume Auto (B ld) [Entitic vol]Ordered By: Riley Phelan on 04-02-2022 Platelet mean volume (Bld) [Entitic vol] 9.4 fL 6.3-10.7 [facility] Platelets Auto (Bld) [#/Vol] Ordered By: Riley Phelan on 04-02-2022 Platelets (Bld) [#/Vol] 275 10*3/uL 150-450 [facility] Protein Auto test strip (U) [Mass/Vol]Ordered By: Riley Phelan on 04-02-2022 Protein (U) [Mass/Vol] Negative Negative [facility] Protein [Mass/volume] in Ser um or PlasmaOrdered By: Riley Phelan on 04-02-2022 Protein [Mass/Vol] 6.7 g/dL 6.1-7.9 [facility] RBC Auto (Bld) [#/Vol]Ordere d By: Riley Phelan on 04-02-2022 RBC (Bld) [#/Vol] 3.87 10*6/uL 3.60-5.00 [facility] Serum or plasma alanine monahan otransferase measurement without P-5'-P (enzymatic activiOrdered By: Riley Phelan on 04-02-2022 ALT No additional P-5'-P [Catalytic activity/Vol] 16 U/L 10-60 [facility] Serum or plasma albumin/glob ulin mass ratioOrdered By: Riley Phelan on 04-02-2022 Albumin/Globulin [Mass ratio] 1.4 {ratio} [facility] Serum or plasma alkaline darrell sphatase measurement (enzymatic activity/volume)Ordered By: Riley Phelan on 04-02-2022 ALP [Catalytic activity/Vol] 79 U/L 32-92 [facility] Serum or plasma aspartate am inotransferase measurement (enzymatic activity/volume)Ordered By: Riley Phelan on 04-02-2022 AST [Catalytic activity/Vol] 19 U/L 10-42 [facility] Serum or plasma calcium abelardo urement (mass/volume)Ordered By: Riley Phelan on 04-02-2022 Calcium [Mass/Vol] 9.0 mg/dL 8.2-10.2 [facility] Serum or plasma chloride michael surement (moles/volume)Ordered By: Riley Phelan on 04-02-2022 Chloride [Moles/Vol] 103 mmol/L 95-114 [facility] Serum or plasma glucose abelardo urement (mass/volume)Ordered By: Riley Phelan on 04-02-2022 Glucose [Mass/Vol] 104 mg/dL 70-100 [facility] Comment on above: ADA recommended refe rence range Random Glucose Reference Range is dependent on time and content of last meal. Glucose of more than 200 mg/dL in a nonstressed, ambulatory subject supports the diagnosis of Diabetes Mellitus. Serum or plasma potassium me asurement (moles/volume)Ordered By: Riley Phelan on 04-02-2022 Potassium [Moles/Vol] 3.7 mmol/L 3.5-5.1 [facility] Serum or plasma sodium measu rement (moles/volume)Ordered By: Riley Phelan on 04-02-2022 Sodium [Moles/Vol] 137 mmol/L 136-146 [facility] Serum or plasma total biliru bin measurement (mass/volume)Ordered By: Riley Phelan on 04-02-2022 Bilirubin [Mass/Vol] 0.4 mg/dL 0.3-1.2 [facility] Serum or plasma total carbon dioxide measurement (moles/volume)Ordered By: Riley hPelan on 04-02-2022 CO2 [Moles/Vol] 25.9 mmol/L 22.0-30.0 [facility] Serum or plasma urea nitroge n measurement (mass/volume)Ordered By: Riley Phelan on 04-02-2022 Urea nitrogen [Mass/Vol] 10 mg/dL 05-25 [facility] Urine appearanceOrdered By: Riley Phelan on 04-02-2022 Appearance (U) Clear Clear [facility] Urine bacteria detection by automated methodOrdered By: Riley Phelan on 04-02-2022 Bacteria Auto Ql (U) Rare None Seen [facility] Urine colorOrdered By: Anisa Phelan on 04-02-2022 Color (U) Yellow Yellow [facility] Urine glucose measurement by automated test strip (mass/volume)Ordered By: Riley Phelan on 04-02-2022 Glucose Auto test strip (U) [Mass/Vol] Normal mg/dL Normal [facility] Urine hemoglobin detection b y automated test stripOrdered By: Riley Phelan on 04-02-2022 Hemoglobin Auto test strip Ql (U) 3+ Negative [facility] Urine leukocyte esterase det ection by automated test stripOrdered By: Riley Phelan on 04-02-2022 Leukocyte esterase Auto test strip Ql (U) Negative Negative [facility] Urine nitrite detection by a utomated test stripOrdered By: Riley Phelan on 04-02-2022 Nitrite Auto test strip Ql (U) Negative Negative [facility] Urobilinogen Auto test strip (U) [Mass/Vol]Ordered By: Riley Phelan on 04-02-2022 Urobilinogen (U) [Mass/Vol] Normal mg/dL Normal [facility] pH Auto test strip (U)Ordere d By: Riley Phelan on 04-02-2022 pH (U) 1.005 [pH] 1.001-1.03 0 [facility] pH (U) 6.5 [pH] 5.0-9.0 [facility] PT - Assessmentson 2 PT - Assessments [id number]#1.00CD:127 Normal [facility] Nonvisit Note - PTon 021 Nonvisit Note - PT Pt cancelled reasses sment. Cxl per patient, She is not feeling well. She will r/s but will wait as she is not sure when she is going to feel better. [facility] Nonvisit Note - PTon 021 Nonvisit Note - PT Pt cancelled as she is still having symptoms. [facility] Nonvisit Note - PTon 021 Nonvisit Note - PT Pt cancelled as she tested positive for COVID. Confirmed 08/28/21. [facility] Nonvisit Note - PTon 021 Nonvisit Note - PT Pt's spouse called t o cancel with no reason given. [facility] Consent for Treatmenton Consent for Treatment [id number]#1.00CD:127 [facility] PT - Assessmentson PT - Assessments [id number]#1.00CD:127 [facility] PT - Consentson 08-02-2021 PT - Consents [id number]#1.00CD:127 [facility] PT - Home Exercise Programon 08-02-2021 PT - Home Exercise Program [id number]#1.00CD:127 [facility] PT - Orderson 08-02-2021 PT - Orders [id number]#1.00CD:127 [facility] PT - Orders [id number]#1.00CD:127 [facility] Insurance Correspondenceon 09-27-2020 Insurance Correspondence [id number]#1.00CD:127 [facility] Coding Summary.on 07-26-2021 Coding Summary. CD:[id number] Gh0bWw+ PGhlYWQ+DE0TKZMnZ24xfLEnpU5 FE2pJWE7MDQUUSFLCSF5YZJ1xsG V0TYduG1UhuzFl ZnwxgTRbYN83KVs3HBL5tLmsFSb faT7uaYBvD3i4CvNmAJ05pN77WS ogJHCdQqN5LzAzbixxtWJq U4bwFcMlrKWxLhm+PHRhYmxlIHd iZBYkEDapEECpFjYsgKjeXR2cQg 9yZGVyLWNvbGxhcHNlOiBj f6xpNOZeXCztZA0gnAxzY2DexVZ 9JOMpa0f4Dp58jRF+HKRkVSJ6kW hqTJkxs153ZeBvh2iuFXY5 qCImUPulVPK9Q19no8W0IRQxVOS oVJU8nRP6lJ3gvCnvjggbV2DwrI VgXpH8HUA9aKKlkE4msNck pnbttD1fQuy+N81XII1KBSEJPR4 MZkf9J3MfMowsvMX+OE57ZBRzJL 99tZVzuDQcf8xmdQl7TgGk XGVdFTR9kNzjTWasz6KaLPLhF65 tjMBjd3Y5JLApeYxjbEEpNuIluC I0cS9dBMwwzzvbx3erozau Hnfzk4tfib62rW96H30pLBxxXGI aHQD1QIKdUPZdlDzaeu8qtW2hAx 8+ZFeez9qhg3yphXt3CiYk GRRdhrVcjUelGQY1c1KjSh13K7Z pcKspj5YhMje0zi56mIUte3W7yT B0EGzqCYYzpL5zERzoFgR3 ALWmGaQibJ18xEQuDVblOn2yoUs wiMeoEA3tZGBcqaeeRUTddA4vKU AloIUdqXmhCF5rNEAploae v034AzMiLOW2UNBcbJZyS4SyaD7 eJxTfCGBhIBGtD5TcgOJqZWwqA6 68TIizIcB2QJPlnoFxW0Kb OQZmfPojLcC3r4D9Mx3Iq6Zhlsg eWAC5YAwzTIXvVnU3BtDmMeS1W0 HyNpj7KXScwWzzSL7mS8Bl VPLjmqkeyfxqlIM3QLDsCCOuhD6 9wCQoADuiBa6gy0R2x652LLClIS LauY22We6klNpyXPHxhZBG pS0zqkscc9kyfibdSzBmVGNfHLa 4OUs7IAZrjQvlPkBwQXA2XqM9YP V3tBIegL4fqGmcbrnilR3d Oyc+Y22yaG1mQLK1TST0slgjWLC wvwVzUS41RZ31P4NhPyuqtHSaxV U+SRDhoaBtdYjkCW2tAeIc i0mqw7JnPVhjO0JtHGVkGCqcXtd 0BEReEZA3eCA8rL5cUBAoVZmoi9 Z6iKW3Z1PgxzGpqo3oh1al FAVvBIiwE22caPQhl3K4NPZleDX 7TULpxBylLmQaeE09Pys+PGNvbG ueq8JcWpmsj7mrx4rzbMe3 DkPfXSCumqYsrKhcOLU5y1LqNt7 9D77kGOzgLSEeFLTgMTKmGXAubF xexs7fsC9vTs5+PGNvbCB3 dCJ9gE5bWXPmUiN6LIrnO265VcT nnXNvTfjek6hrw2andZy5YrFbSC JpvkHtiLjiOEV3j6RxMp64 U36oWAesFJWnXPLiFEXiNJWnxXk inz4onA6xKt3+QU9tu2nejq47fZ 48dHI+HSLuHNK9mDmxXCeh RGZoyZ9tBZxiJoS3GRIcNrYawP4 2oNDjZHefCa1wiMzeaNoxFA3nRJ Ukeyitn084YeAls3jvREDc jGCfQTvfGUL7J41xp0O5DWReQPW sQWB2pCC7dT0heHoxcbcsiZIovD yttqXwhRifLEsdFQtlZ299 IHRvcDsnPlBhdGllbnQgTmFtZTo 5N2HjXhy6SDMvaRkeXE3ojNDuBA utXo8ixVicgExeWJ1eKDOo awteu185QlGmg4vqKSVxjMRgGAk sXMZ4S43fy0I0NBZnLPJwTHH7zQ I5sR8ihHwyautjmLFopKcy quXwlCdqBSdzXMixB842LLZnuHx uAaStpcHrOSOwbUX9QM08WO65iF Ddr4M9cSA2G1RcOKEuhtmj duckmPK5ZSPwXDWilC71Ks6deFj ySy7bWEPiJSL1BTLubENqW1IclZ 0gLsXdYRXrJCFmD8ImcHCh CCwyQ047QYxvZkG5HFOliqBhG6R bGBHgdTeuQzZ4h8W6Rl2GC9G2CR 31YV39sAShm1E8jBQ6I5Qq VWDcwtrdobbjoEZ0UVRoHOSgjY6 3Jh7ybTsnJt1cKBNhMVF3PQWdnH CoC4WrkF9yMmRnTRZdBHHq E5FgrUAlRIvvP362IFefVfL4LMI hrxPdU3GmKYXknOetCbP6z2C2Zf 8BEWm0PT41FJ71fKJez7Z1 iEB7G1NpYBXxwfmbejyghFC8KMD cTQYalI70Hr2xxLjmSw7wRPFzSM O3ZRQxpOIhN9DedX2lIaPm JMSjVXSoY7KadYZsLOnhN397RMb eTlW8FQZoclXmM1SgBNGacUfdIp X3b7H0Ss8FIKFdBD34LWM2 fTA4YG46ET13I2CbYmsfpDXszZV +PHRhYmxlIHdpZHRoPScxMDAlJy XyzErfLI9wQk4kGMFwYTKt hCzgbSFmSlYrx2tiYAAzGXofZA7 oiPjxO4IddUL6NMNzp5m9Fl00Z7 5iD9QqeHN+UULqkZN4hCJ4 gK2uMjZhKuB2LDryQ240FhPznMF gWpejj5gcn4jytQp4RnI5CNGbja BvpQbeDBO0k6WrTd71V11y IHdpZHRoPSIxNSUiIHZhbGlnbj0 vkU9yWi8+TLBsfNZ1yRW2yC1tNm KfKyU9QNpcX514RmEurHYj Grpxj8fbv6hhnDl2BgBrYNMymfG pzMznCPL3j2IzZj14O6VakYlyc2 BgOix5mk02jYFtm6I7nQD1 L8ByPJMidnyyyNJhpPsdOB7sHCQ tuqoxRLHrlL9xBSSbQ9j4VtLuTc S6PRhdN3QmoiM6LAJoqRDk BHvgXYB5C72eu2M1DJTzMQTvRZI 4tYR7qN9wuHphtlwohLHdgKuqhh RgbFwcTFbrEQvnQ980KYXz rQuvUWXhvW4zCQEkkTMllYjgBK8 zBQGitwfaYh3VPdESKwafSVGRRW DYMSP5V9WmYse6QQQodJux OY2kiKRvQBhuGa6bwGnoiXnvRB9 fJDRxrjpkXIYjoN7hZTYupDIsaM djQB1oUUDlxjdda727TnGi QMY3MEPwsRYuG2HkvL8rAuQfQWK rHCVaX1HfaEXuKWnmD862VLsuCm S4CQVfriXaS9GmGWXzjBly GkW4n9W0Qn4nXA9eNU4eNFwjDL6 2JQ98aVOfj4X1uGX3H8SiJJWqlh omqtouaJQ9PRLcNVNqzD16 aTOzHUdfHq3gj1F4y358UQNaJCE upW28Cs7aiKltSFFonOMNrR0dlh fuk3reockoDqOdFUUxBQd6 VGd5QFEgaZyzYaXiHLF0WnJ1VKR 5jBAhiM3qiOuxujdrbQ1eIvk+Mz etNRBgvjV0L7FtCag9CNAp zNkbMH7cbURjWEiqKm6fqZwicKg tHH3mGBSxruxsVJHxsT3iWTLsgW EzsWueWQ6tGQVmzhmfb521 ZjYoJMM2UHJfpNNzG1WdcK2jIjU iERCwRLEqP9StqKGwATgdS308EI gsEfV0NOKldkEaA8HrTNJa oSpyGeQ0z8P2Oq3JCD8dmGO1V8A lSrf4WQGdhKbuMJ6bhQVcZLknOx 4abNynrTxdIL7aYWRmiylh KXEpeP5iAJDxlNQhlCefPY1hWEA utkowt255SkLzZPX3BVPjtSXfH5 MvrT2fVrPyQZZvTXHbM7Vj yDSyLAikW674TQsgZiD6XKUjesE fK7YxZVErtJomRzG8t5R6Ey5YDK A7gsXqild7C9EaUqiqvHM+ SB34JSCiKH39jQAqpZWbm2jxxYz 1WaSqYBGrFZC5iOrpBNsli0QtYD YeC30neOAch8C8CXOrqLwt fNAxFqVbyWU0zC6gMKkatzbvp8q qyuceBbvpq5irmv60mE43D68vZX dpZHRoPSIzMCUiIHZhbGln xa5yqM0zOi8+MSHvvGO0yWA5bL4 aJsTbWbF6NBqaR357QmTxlTAoMw rnb1kiz1bubLw2QaVwCOMv glSznVyoKKP1q6OaTv84U12jZKu mNYFfNSPgLYGbQSTrtQteqb3ykW 9wIi8+MP8wr1mgnh19tU77 dHI+VCRiCMA5bXvvIFapWBDwbS8 qWLkdDmA5LTHbWrQhkK62wWTiNA vbPj8bgKmmsRevVW1aHUEe ihqsv012OmLzj1ugISIivIEsMFb nIFS5F31cz4A2RORiZINpJLS1rL N7vD3vxAfvavhvgCIleJsy eqUtmLrmDXzpQDlvU376WDFvaZg rIzIsfXMjM0faxhPHRV1cCjsagM Q+DEQaVRU3pAbfZFgqBYAl lQ0vBWEbL2m0KkKqLlA0EPfeF5B eydG6JWYtpJYsSVTloODNiF1pkz lkj4wlkplqYbEeKQOvHEa2 TQg1IYLsyAeoTsZpIYC6IuC8QUR 7kWHfeF9frFebfnjzeI6qIat+Rk lOOjwvdGQ+DZLsYPW9fVgv ADwbHRSzgA5zCRQiK5a2SmIvMeQ 1KZitT6OhchP0VLRdpUUtQOZnzD TJxF4fmaosa8kjortlCwTj JORmRVk8HGp8FTHztGhnSlYlWXK 9QhD0YGH3sOFhiV0hyBuoksoeqI 9wOyc+TVJOOjwvdGQ+PHRk JCE7cSazEAbhPBIzwR3iKBFiQ5m 2KgAaYdQ1YJupN4PeszZ3SKLwuM MrLWDerYZPeM0icjrqz9ob gerxVeRsRRGfRVy4NFg7RUDjwKy jNiTmMTV0IkL0KEC5jHOzbX6kbA rqihiiyN3cJji+FOU8XWK3 HL73OX70Z0ZiDzcsoNLawVD+PHR hYmxlIHdpZHRoPScxMDAlJyBzdH nqKH6kSn3xBQKgCVUkqJkb [facility] (more content not included)... Normal [facility] PT - Otheron 07-26-2021 PT - Other [id number]#1.00CD:127 Normal [facility] PT - Other [id number]#1.00CD:127 [facility] PT - [place] 07-25-2021 PT - Orders [id number]#1.00CD:127 [facility] PT - [place] 07-24-2021 PT - Orders [id number]#1.00CD:127 [facility] CNOVon 07-25-2020 CNOV Office Visit ([id number] ) SUSANA LOYOLA ([id number]) 1980 F Date Time Provider Department 07/25/20 9:00 AM VIKY COATS (RETAIL TEAM MEMBER.DIRECTOR OF MANAGED SERVICES)[id number] During your visit today, we recorded the following information about you: Viky Coats APRN.CNP 07/25/2020 10:17 AM Signed [facility] PROGRESS NOTE PATIENT: Susana Baltazaron MRD: [id number] DATE: July 25, 2020 IDENTIFYING INFORMATION: Susana is a 39 year old female with a history of depression with anxiety and explosive disorder. CHIEF COMPLAINT: meeting to establish continuation of care. INTERIM HISTORY: I don't know how to control my anger. She has been in counseling and has determined that she likes being angry,, her mother liked being angry. We have tried different medications and even in her past she has tried medications. She doesn't like to take the medication every day and a lot of medications give her tightening in my chest or they give me shortness of breath or acid reflux. This patient is know to me from another clinic where she is transferred to this clinic. She does have the Diagnosis of Bipolar 2 and has refused medications for several years. She is in counseling. With her children her oldest son has to stay in the state custody because they don't have a place to live. She has the 2 smaller children that are living with her. 2 of her other children are living somewhere else and they don't know her. Her oldest son preys on younger children with disabilities. She was stressing in the last couple of months because she was trying to get ready for him to come however it did not materialize. We have tried many other medications to help. In the past we have tried mood stabilizers antidepressants and she does not take them. We discussed concerns in that she does get intense emotions and has had episodes of self harm. She has had suicidal ideation in the past, currently she is not suicidal. Sleep is poor, mostly due to her baby she is getting broken sleep from 11 to 8, Day time energy is low she lives off coffee. Relationship with her is going well, they are struggling for money. She is now working at [employer], she is working in the [employer]. She thinks the money is good and has benefits. Medications Folic acid, B vitamins. Magnesium Omeprazole maxalt as needed for headaches. She is on a slim fast diet because she is trying to loose weight. She is trying to loose weight to 165 lbs. She is going to the gym, and they stopped her OBC and she now has an IUD. She is in counseling to help work on her mood and anger, She doesn't like people, they do make her anxious. Review of Systems Musculoskeletal: Positive for myalgias. Neurological: Positive for headaches. Psychiatric/Behavioral: The patient is nervous/anxious and has insomnia. Substance Use History: No smoking, she is drinking wine nightly, no mariujana RATING SCALES: PHQ-9 [id number] [place] SUICIDE SEVERITY RATING SCALE 1.) Wish to be : Have you wished you were or wished you could go to sleep and not wake up? YES 2.) Suicidal Thoughts: Have you actually had any thoughts of killing yourself? NO 6.) Suicide Behavior Question: Have you ever done anything, started to do anything, or prepared to do anything to end your life?NO RISK LEVEL RISK/PROTECTIVE FACTOR SUICIDALITY POSSIBLE INTERVENTIONS High Psychiatric disorders with severe symptoms, or acute precipitating event; protective factors not relevant Potentially lethal suicide attempt or persistent ideation with strong intent or suicide rehearsal Admission generally indicated unless a significant change reduces risk. Suicide precautions Moderate Multiple risk factors, few protective factors Suicidal ideation with plan, but no intent or behavior Admission may be necessary depending on risk factors. Develop crisis plan. Give emergency/crisis numbers Low Modifiable risk factors, strong protective factors Thoughts of , no plan, intent or behavior Outpatient referral, symptom reduction. Give emergency/crisis numbers Risk level: low no thoughts Current Outpatient Medications on File Prior to Visit Medication Sig - copper (PARAGARD T 380A) 380 square mm intrauterine device 1 Intra Uterine Device by INTRAUTERINE route continuous. IUD lot #: [id number] Exp date: 2025 - omeprazole (PRILOSEC) 20 mg capsule Take 1 capsule by mouth once daily. - fluticasone (FLONASE) 50 mcg/actuation nasal spray Use 2 Sprays in each nostril once daily. Rinse mouth after use. - rizatriptan (MAXALT) 10 mg tablet 1 tab at earliest sign of migraine. May repeat once in 2 hours if needed. Give max allowed per insurance. - loratadine (CLARITIN) 10 mg tablet Take 1 tablet by mouth once daily as needed for Cold/Allergy Symptoms. No current facility-administered medications on file prior to visit. Medication side effects: None she is not taking any medications because of 'side effects' Delusions: None Hallucinations: none Past family; and social history reviewed. VITAL SIGNS: LMP 10/09/2019 (Exact Date) LAB DATA: Reviewed and discussed. No flowsheet data found. AIMS TESTING Negative MENTAL STATUS EXAMINATION: Appearance: appears stated age, ,Female, well developed, well nourished, normal clothing, grooming is Within Normal Limits, no significant scaring on her face that is visible although she is wearing a mask Psychomotor Activity: normal Steady gait, muscle tone adequate Behavior: Cooperative, Good eye contact, Speech: spontaneous , Normal rate, Normal volume, Clear, Mood: Calm and with anxious undertones Affect: appropriate to content Thought Process: logical Thought Content: Thoughts of , but not suicide., No homicidal ideation, intent or plan., Logical Phobias: to medications Cognition: Orientation: Person, Place, Time and Situation Attention: Intact Concentration: Intact Language: Intact naming, Intact repetition Estimated Intelligence: Average Memory: Intact recent memory, Intact remote memory Abstraction: Intact Insight: adequate Judgement: adequate RISK ASSESSMENT: Discussed the risk and benefit of the medication, client demonstrates understanding. Discussed importance of the chosen treatment plan. Client agrees with the discussed plans and efforts to keep within the stated plan. PDMP website checked and validated. All prescriptions have been APPROPRIATELY filled. No suspicious activity was identified. 07/25/2020 by Viky Coats APRN.NICANOR ASSESSMENT/PLAN: 1. Bipolar II disorder, most recent episode major depressive (HCC) - ICD9: 296.89, ICD10: F31.81 (primary diagnosis) 2. Generalized anxiety disorder - ICD9: 300.02, ICD10: F41.1 She is refusing medications except for an occasional alprazolam 0.25 mg Encouraged counseling Viky Coats APRN.CNP Patient understands and agrees with the treatment plan: Yes Return in about 2 months (around 09/24/2020). Psycho-Education: Total time in direct patient contact = 30 min. Greater than 50% of the time was spent in counseling and/or coordination of care. Viky Coats APRN.NICANOR 07/25/2020 10:17 AM Signed GET HELP If you have symptoms of clinical depression, you can get help by doing one or more of the followin. Please talk with your doctor. 2. If you are already in treatment, make sure you contact and update your doctor or therapist. 3. Review additional options for care based on patient or provider preference: Central/Multiple Locations: ? [facility]: 8229 [facility] [phone] ? Jimenez Blackmon: [address] [facility] - [phone] ? [facility], [facility] 8301 [facility] [phone] ? [facility]: 5253 [facility] [phone] ? [facility]: [facility] - [phone] (Medicaid only) ? [facility]: Multiple Locations - [phone] ? [facility] Department of Psychiatry AND Psychology at [phone] (select Option 1) or [phone] (select Option 1) ? [facility]: Multiple Locations - [phone] (Medicaid only) ? Fabián Herbert [facility] - Multiple Locations - [phone] (Medicaid only) ? [facility], [facility] Multiple Locations - [phone] ? [facility]: Multiple Locations - [phone] ? [facility]: Multiple Locations - [phone] [place] Locations: ? [facility]: [address]52 [facility] - [phone] ? [facility]: [address] [place] [address] [place] - [phone] ? Ama Lees PhD [facility] Associates: 06043 [facility] - [phone] ? [facility] ? [address] [facility] [address] - [phone] ? Julian Lee MD: 12272 [facility] - [phone] ? [facility] 1834 [facility] - [phone] ? [facility]: 992 [facility] - [phone] ? [facility] Counsel[facility], [address] [place] [address] - [phone] [place] Locations: ? Daly Long MD [facility]: [address] [place] , [place] - [phone] ? Ama Lees PhD [facility]: [address]657 [facility] - [phone] ? [facility]: 81641 [facility] - [phone] ? [facility].: 3690 [facility] - [phone] ? [facility], [address] - [phone] ? [facility], 7350 [facility] [place] [place] - [phone] ? [facility]: [address] [place] - [phone] [facility] Locations: ? [facility] [place] - [phone] ? [facility] [address] , [facility] - [phone] ? [facility]: 1 [place] [facility] [place] - [phone] ? [facility]: [address], [place] - [phone] ? [facility] ? 256 [facility] [place] - [phone] [place] Locations: ? [facility] - David Arroyo MD Psychiatry, Sleep Medicine - 2420 [facility] - [phone] or [phone] ? Rodrigo Garcia MD - 2422 [facility] [phone] ? [facility] - GARRETT Mendiola, DCSW - [address] [phone] ? [facility] - 2801 [facility] [phone] ? [facility] (NO Commercial Insurance accepted) - 47[address] [facility] [phone] ? [facility] - Leobardo Guthrie, PCC, [facility] - 29 [facility] [phone] ? GARRETT Enriquez - 2409 [facility] [phone] ? Kati Humphrey, [facility] - [address] [phone] ? David Szymanski, PhD - [address] [phone] ? KOSTAS HansenW - 850 [facility] [phone] ? Vandana Gil, [facility], [facility] (No Medicare, [place], [employer]) - [address] - [phone] ? GARRETT Rizzo - [address] [place], [place] - [phone] ? Andre Rosario, [facility] - 5706 [facility] [phone] For additional resources and information please call 2- or review the website: [email or web address] / If you are feeling suicidal, please call [place], , or the [facility] Suicide Hotline , Call 571, or go to your nearest emergency room Referring Provider: SELF [200] Allergies As of Date: 07/25/2020 Noted Allergy Reaction FLUORESCEIN 04/19/2020 14 - Other: See Comments Comments: Had a severe migraine and feeloing of being off balance for over 24 hours following procedure PENICILLINS 10/13/2004 5 - Intolerance 2 - Rash SULFA (SULFONAMIDE ANTIBIOTICS) 2010 5 - Intolerance Date Reviewed: 07/25/2020 Reviewed by: Viky Kauffman (Server Security Administrator.[employer]) Jorge L - Fully Assessed Primary Visit Diagnosis:Bipolar II disorder, most recent episode major depressive (HCC) [F31.81] Other Visit Diagnosis:Generalized anxiety disorder [F41.1] Order(s):ALPRAZolam (XANAX) 0.5 mg tabletTake 1 tablet by mouth once daily for 30 days.Disp: 10 tabletRfl: 0 Prescriptions as of 07/25/2020 Sig: ALPRAZOLAM 0.5 MG TABLET Take 1 tablet by mouth once d* PARAGARD T 380A 380 SQUARE MM* 1 Intra Uterine Device by INT* OMEPRAZOLE 20 MG CAPSULE,DARYL* Take 1 capsule by mouth once * FLUTICASONE PROPIONATE 50 MCG* Use 2 Sprays in each nostril * RIZATRIPTAN 10 MG TABLET 1 tab at earliest sign of shabnam* LORATADINE 10 MG TABLET Take 1 tablet by mouth once d* Problem List As Of Date 07/25/2020 Noted Resolved Pelvic pain 02/14/2012 07/15/2020 Exposure to sexually transmitted disease (STD) *02/14/2012 07/15/2020 Chronic migraine without aura, with intractable*03/14/2018 Intractable chronic migraine without aura and w*03/14/2018 Chronic daily headache [R51.9] 03/14/2018 Medication overuse headache [G44.40] 03/14/2018 Rebound headache [G44.40] 03/14/2018 Hemicrania continua [G44.51] 03/14/2018 Pain in left hip [M25.552] 07/08/2019 Pain in right hip [M25.551] 07/08/2019 Abnormal O'Li glucose challenge test, ant*07/23/2019 11/16/2019 More... Supervision of high risk , antepartum,*08/02/2019 11/01/2019 Advanced maternal age in multigravida, unspecif*08/02/2019 11/16/2019 39 weeks gestation of [Z3A.39] 08/02/2019 11/01/2019 Chronic hypertension in [O10.919] 08/02/2019 Cervical dysplasia complicating , ante*08/02/2019 07/15/2020 Chronic pain of both hips [M25.551, M25.552, G8*08/02/2019 with care elsewhere, antepar*08/02/2019 01/19/2020 Anemia during in third trimester [O99*08/06/2019 07/15/2020 More... Anxiety during [O99.340, F41.9] 08/10/2019 07/15/2020 More... Migraine without aura and without status migrai*11/12/2019 Bipolar II disorder, most recent episode major *07/25/2020 Generalized anxiety disorder [F41.1] 07/25/2020 Other instructions from your clinician: GET HELP If you have symptoms of clinical depression, you can get help by doing one or more of the followin. Please talk with your doctor. 2. If you are already in treatment, make sure you contact and update your doctor or therapist. 3. Review additional options for care based on patient or provider preference: Central/Multiple Locations: ? [facility]: 6122 [facility] [phone] ? Jimenez Blackmon: [address] [place] - [phone] ? [facility], Inc.: 4133 [facility] - [phone] ? [facility]: 7800 [facility] - [phone] ? [facility]: 4500 [facility] - [phone] (Medicaid only) ? [facility] Medicine: Multiple Locations - [phone] ? [facility] Department of Psychiatry AND Psychology at [phone] (select Option 1) or [phone] (select Option 1) ? [facility]: Multiple Locations - [phone] (Medicaid only) ? [facility] - Multiple Locations - [phone] (Medicaid only) ? [facility], Inc.: Multiple Locations - [phone] ? [facility]: Multiple Locations - [phone] ? [facility]: Multiple Locations - [phone] [place] Locations: ? [facility]: 19279 [facility] - [phone] ? [facility]: 9[address]25 [facility]. [place] - [phone] ? Ama Lees PhD [facility] Associates: 66093 [facility] - [phone] ? [facility] ? [address] [facility] [address] - [phone] ? Julian Lee MD: 86265 [facility] - [phone] ? [facility]. 1834 [facility] - [phone] ? [facility]: 992 [facility] - [phone] ? [facility], [address] [place] [address] - [phone] [place] Locations: ? Daly Long MD [facility] Inc: [address], [place] - [phone] ? Ama Lees PhD [facility]: [address] [facility] - [phone] ? [facility]: 67790 [facility] - [phone] ? [facility] Inc.: 3690 [facility] - [phone] ? [facility], [address] - [phone] ? [facility], [address], [place] - [phone] ? [facility]: [address] [place] - [phone] [facility] Locations: ? [facility] [place] - [phone] ? [facility] [address], [facility] - [phone] ? [facility]: 1 [place] [facility] - [phone] ? [facility]: [address] [facility] - [phone] ? [facility] ? 256 [facility] - [phone] [place] Locations: ? [facility] - David Arroyo MD Psychiatry, Sleep Medicine - 2420 [facility] [phone] or [phone] ? Rodrigo Garcia MD - 2422 [facility] [phone] ? [facility] - GARRETT Mendiola, DCSW - [address] [phone] ? [facility] - 2801 [facility] [phone] ? [facility] (NO Commercial Insurance accepted) - 3835 [facility] [phone] ? [facility] - Leobardo Guthrie, [facility], [facility] - 29 [facility] [phone] ? Nunu Mayo, VP PUBLIC RELATIONS - 2409 [facility] [phone] ? Kati Humphrey, [facility] - [address] [phone] ? David Szymanski, PhD - [address] [phone] ? Radha Stevens, VP PUBLIC RELATIONS - 850 [facility] [phone] ? Vandana Gil, PCCS, [facility] (No Medicare, [facility]) - [address] [place] [address] 201, [facility] - [phone] ? Colin Kylie, [facility] - [address] [place] [address], [place] - [phone] ? Andre Templeton Abraham, [facility] 1202 [facility] [phone] For additional resources and information please call or review the website: [email or web address] / If you are feeling suicidal, please call [place], , or the [facility] Suicide Hotline , Call 368, or go to your nearest emergency room Prescriptions ordered this encounter Disp Refills Start End ALPRAZOLAM 0.5 MG TABLET 10 t* 0 07/25/2020 08/24/2020 Route: ORAL Sig: Take 1 tablet by mouth once daily for 30 days. Disposition: Return in about 2 months (around 09/24/2020). Follow-up and Disposition History Recorded Encounter Status:Closed by VIKY COATS APRN.CNP on 07/25/20 [facility] PROGRESSon 07-25-2020 PROGRESS HNO ID: [id number] Author: Viky Kauffman (Maikel) Jorge L Service: ? Author Type: Nurse Practitioner Type: Progress Notes Filed: 07/25/2020 10:17 AM Note Text: [facility]IC[facility] PROGRESS NOTE PATIENT: Susana Loyola MRD: [id number] DATE: July 25, 2020 IDENTIFYING INFORMATION: Susana is a 39 year old female with a history of depression with anxiety and explosive disorder. CHIEF COMPLAINT: meeting to establish continuation of care. INTERIM HISTORY: I don't know how to control my anger. She has been in counseling and has determined that she likes being angry,, her mother liked being angry. We have tried different medications and even in her past she has tried medications. She doesn't like to take the medication every day and a lot of medications give her tightening in my chest or they give me shortness of breath or acid reflux. This patient is know to me from another clinic where she is transferred to this clinic. She does have the Diagnosis of Bipolar 2 and has refused medications for several years. She is in counseling. With her children her oldest son has to stay in the state custody because they don't have a place to live. She has the 2 smaller children that are living with her. 2 of her other children are living somewhere else and they don't know her. Her oldest son preys on younger children with disabilities. She was stressing in the last couple of months because she was trying to get ready for him to come however it did not materialize. We have tried many other medications to help. In the past we have tried mood stabilizers antidepressants and she does not take them. We discussed concerns in that she does get intense emotions and has had episodes of self harm. She has had suicidal ideation in the past, currently she is not suicidal. Sleep is poor, mostly due to her baby she is getting broken sleep from 11 to 8, Day time energy is low she lives off coffee. Relationship with her is going well, they are struggling for money. She is now working at [employer], she is working in the [employer]. She thinks the money is good and has benefits. Medications Folic acid, B vitamins. Magnesium Omeprazole maxalt as needed for headaches. She is on a slim fast diet because she is trying to loose weight. She is trying to loose weight to 165 lbs. She is going to the gym, and they stopped her OBC and she now has an IUD. She is in counseling to help work on her mood and anger, She doesn't like people, they do make her anxious. Review of Systems Musculoskeletal: Positive for myalgias. Neurological: Positive for headaches. Psychiatric/Behavioral: The patient is nervous/anxious and has insomnia. Substance Use History: No smoking, she is drinking wine nightly, no mariujana RATING SCALES: PHQ-9 8 [id number] [place] SUICIDE SEVERITY RATING SCALE 1.) Wish to be : Have you wished you were or wished you could go to sleep and not wake up? YES 2.) Suicidal Thoughts: Have you actually had any thoughts of killing yourself? NO 6.) Suicide Behavior Question: Have you ever done anything, started to do anything, or prepared to do anything to end your life?NO RISK LEVEL RISK/PROTECTIVE FACTOR SUICIDALITY POSSIBLE INTERVENTIONS High Psychiatric disorders with severe symptoms, or acute precipitating event; protective factors not relevant Potentially lethal suicide attempt or persistent ideation with strong intent or suicide rehearsal Admission generally indicated unless a significant change reduces risk. Suicide precautions Moderate Multiple risk factors, few protective factors Suicidal ideation with plan, but no intent or behavior Admission may be necessary depending on risk factors. Develop crisis plan. Give emergency/crisis numbers Low Modifiable risk factors, strong protective factors Thoughts of , no plan, intent or behavior Outpatient referral, symptom reduction. Give emergency/crisis numbers Risk level: low no thoughts Current Outpatient Medications on File Prior to Visit Medication Sig - copper (PARAGARD T 380A) 380 square mm intrauterine device 1 Intra Uterine Device by INTRAUTERINE route continuous. IUD lot #: [id number] Exp date: 2025 - omeprazole (PRILOSEC) 20 mg capsule Take 1 capsule by mouth once daily. - fluticasone (FLONASE) 50 mcg/actuation nasal spray Use 2 Sprays in each nostril once daily. Rinse mouth after use. - rizatriptan (MAXALT) 10 mg tablet 1 tab at earliest sign of migraine. May repeat once in 2 hours if needed. Give max allowed per insurance. - loratadine (CLARITIN) 10 mg tablet Take 1 tablet by mouth once daily as needed for Cold/Allergy Symptoms. No current facility-administered medications on file prior to visit. Medication side effects: None she is not taking any medications because of 'side effects' Delusions: None Hallucinations: none Past family; and social history reviewed. VITAL SIGNS: LMP 10/09/2019 (Exact Date) LAB DATA: Reviewed and discussed. No flowsheet data found. AIMS TESTING Negative MENTAL STATUS EXAMINATION: Appearance: appears stated age, ,Female, well developed, well nourished, normal clothing, grooming is Within Normal Limits, no significant scaring on her face that is visible although she is wearing a mask Psychomotor Activity: normal Steady gait, muscle tone adequate Behavior: Cooperative, Good eye contact, Speech: spontaneous , Normal rate, Normal volume, Clear, Mood: Calm and with anxious undertones Affect: appropriate to content Thought Process: logical Thought Content: Thoughts of , but not suicide., No homicidal ideation, intent or plan., Logical Phobias: to medications Cognition: Orientation: Person, Place, Time and Situation Attention: Intact Concentration: Intact Language: Intact naming, Intact repetition Estimated Intelligence: Average Memory: Intact recent memory, Intact remote memory Abstraction: Intact Insight: adequate Judgement: adequate RISK ASSESSMENT: Discussed the risk and benefit of the medication, client demonstrates understanding. Discussed importance of the chosen treatment plan. Client agrees with the discussed plans and efforts to keep within the stated plan. PDMP website checked and validated. All prescriptions have been APPROPRIATELY filled. No suspicious activity was identified. 07/25/2020 by Viky Coats APRN.NICANOR ASSESSMENT/PLAN: 1. Bipolar II disorder, most recent episode major depressive (HCC) - ICD9: 296.89, ICD10: F31.81 (primary diagnosis) 2. Generalized anxiety disorder - ICD9: 300.02, ICD10: F41.1 She is refusing medications except for an occasional alprazolam 0.25 mg Encouraged counseling Viky Coats APRN.DIRECTOR OF MANAGED SERVICES Patient understands and agrees with the treatment plan: Yes Return in about 2 months (around 09/24/2020). Psycho-Education: Total time in direct patient contact = 30 min. Greater than 50% of the time was spent in counseling and/or coordination of care. [facility] ANES PRE-OPon 10-12-2019 ANES PRE-OP HNO ID: [id number] Author: David Null Service: ? Author Type: Anesthesiologist Type: Anesthesia Preprocedure Evaluation Filed: 10/16/2019 7:41 AM Note Text: ANESTHESIOLOGY DAY OF SURGERY NOTE : 1980 Csection Estimated body mass index is 29.95 kg/m? as calculated from the following: Height as of 10/08/19: 172.7 cm (5' 8 ). Weight as of 10/08/19: 89.4 kg (197 lb). Most recent hematocrit and potassium results: Hematocrit 32.3 10/08/2019 Potassium 3.8 03/24/2012 Relevant Problems CARDIO (+) Chronic hypertension in (+) Chronic migraine without aura, with intractable migraine, so stated, with status migrainosus (+) Hemicrania continua (+) Intractable chronic migraine without aura and without status migrainosus NEURO-PSYCH (+) Hemicrania continua (+) Medication overuse headache (+) Rebound headache I - PHYSICAL EVALUATION AIRWAY Patient intubated: No. II - ANESTHESIA PLAN ASA Score: 2 Anesthetic Plan: spinal, I have interviewed and examined the patient. I have reviewed the medical record and/or the pre-anesthesia evaluation, pertinent labs, and test results. This contains updated information obtained within 48 hours of Surgery/Procedure. SIGNATURE: David Null MD PATIENT NAME: Susana Loyola DATE: October 12, 2019 TIME: 7:45 AM CSN: [id number] [facility] PROGRESSon 10-11-2019 PROGRESS HNO ID: [id number] Author: Yolanda Odom) Joesph Service: Obstetrics Author Type: Nurse Practitioner Type: Progress Notes Filed: 10/11/2019 8:53 AM Note Text: Patient seen. Reviewed vitals and labs. Pain and bleeding well controlled. Questions and concerns addressed. Doing well without complaints. Ready for discharge. Plan of care discussed with: Provider, RN, Patient . Counseling time: 5 min Total time: 5 min Yolanda Pink APRN.CNP 10/11/2019 8:53 AM [facility] CASE MGT INIT ASSESon 2019 CASE MGT INIT 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 Last discharge within 30 days: No Advance Directive: Current Advance Directive: None Police Radio Dispatcher Attempted to Assist with AD Completion: Yes Action: Education Provided Health LiteracyHow often do you need to have someone help you when you read instructions, pamphlets, or other written material from your doctor or pharmacy? : 2 -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 ventricles, thalami, cavum and cisterna magna are unremarkable. The nose/lips and sagittal nasal profile was were not adequately visualized. The cervical, thoracic, lumbar and lumbosacral spine reveals no dysraphism or other abnormality. The kidneys, diaphragm, stomach, bladder, umbilical cord insertion and three-vessel umbilical cord are within normal limits. Extremities are present and normal in number. A normal four-chamber heart is seen with a heart rate confirmed by M-mode Doppler to be 161 beats per minute. Normal right ventricular outflow tract. The left ventricular outflow tract was not adequately visualized. Normal situs with cephalic presentation. IMPRESSION: 1. Single, live, intrauterine with concordant dates. 2. The following structures were not adequately visualized colon nose/lips, sagittal profile, and LVOT. Patient will be called back to further evaluate these structures. 3. Posterior placenta without previa. Electronically signed by: Bill Mullins MD 06/08/2019 3:09 PM CDT Normal [facility] Comment on above: Order Comment: Order ed on [facility]# [id number] Result Comment: Tech nologist: KAREN Dictated By: BILL MULLINS DO Signed By: BILL MULLINS DO Signed Out: 06/08/19 16:09:02 Phone Alex 06-03-2019 Phone Msg - From: Marilia Chowdary RN To: Marilia Chowdary RN; Sent: 06/03/2019 10:06:44 EDT Pt scheduled with Dr Lake on 06/11/19 at 11:00. Records faxed. Pt notified and cannot make that day- Susana was given phone number and she will call and reschedule- is OK with driving to [place] if necessary. Requested pt to call back with new day and time. Pt rescheduled for 06/25/2019 @ 9:15 at the [place] office Normal [facility] SURGICAL PATH REPORTon 06-02 SURGICAL PATH REPORT [facility] Department of Pathology [address] [place] [address] Name: SUSANA LOYOLA : 1980 [facility] [id number] Number: Gender: Female Location: [facility]. Admit 38 years Attending KHANG WYNN DO, FACOG Age: Provider: Ordering KHANG WYNN DO, FACOG Provider: Consulting: Surgical Pathology Report ACCESSION: COLLECTED DATE/TIME: RECEIVED DATE/TIME: PATHOLOGIST: [id number] 05/28/2019 12:50 EDT 05/29/2019 08:45 EDT ANTONIO KELLEY MD Final Diagnosis UTERINE CERVIX, BIOPSY: - MINUTE FRAGMENT OF SQUAMOENDOCERVICAL MUCOSA WITH ACUTE AND CHRONIC INFLAMMATION AND FEATURES SUGGESTIVE OF HIGH-GRADE SQUAMOUS INTRAEPITHELIAL LESION. COMMENT: Immunostain for p16 has been used for the evaluation of this specimen. ANTONIO KELLEY PATHOLOGIST (Electronic Signature) Date Verified 06/02/2019 TS Clinical Data PRE-OP DIAGNOSIS: ASCUS, other HR HPV POST-OP DIAGNOSIS: Not specified PROCEDURES: Colposcopy SPECIMEN: Cervical biopsy Gross Description Labeled cerv bx. Received in formalin is a single ovoid segment of chan soft tissue measuring 0.1 x 0.1 x 0.1 cm. The specimen is entirely submitted in one cassette. MARCO/tasneem 05/29/2019 Print Date06/02/2019 22:44 EDT Number: Time: [facility] Department of Pathology [address] [place] [id number] Name: SUSANA LOYOLA : 1980 [facility] [id number] Number: Gender: Female Location: [facility]. Admit 38 years Attending KHANG WYNN DO, FACOG Age: Provider: Ordering KHANG WYNN DO, FACOG Provider: Consulting: Surgical Pathology Report ACCESSION: COLLECTED DATE/TIME: RECEIVED DATE/TIME: PATHOLOGIST: [id number] 05/28/2019 12:50 EDT 05/29/2019 08:45 EDT ALLIE RODRÍGUEZ, ANTONIO Microscopic Diagnosis NOTE: One or more of the reagents used to perform assays on this specimen MAY have contained components considered to be analyte specific reagents (ASR's). ASR's have not been cleared or approved by the U.S. Food and Drug Administration. The performance characteristics of these assays have been determined by the Department of Pathology at [facility]. This assay was performed subsequent to the H&E examination. Appropriate positive and negative controls were examined with appropriate reactivity. Codes CPT CODE: 74476 + 23620 Print Date06/02/2019 22:44 EDT Number: Time: [facility] Comment on above: Performed By: #### 1 [id number], [id number], [id number], 072324, 599066, 710134 #### [facility] Laboratory Services [address] [place] [id number] Master Rigger: Franck Bello MD [facility] Physician Progress No mona 06-01-2019 [facility] Physician Progress Note Chief Complaint Here for colposcopy ASCUS +HPV 04/02/19, colp scheduled, states she is congested, not sure if head cold or if she's getting something. pt is stressed out and stopped smoking but want to know how bad it would be if she started again History of Present Illness Here for colposcopy ASCUS +HPV 04/02/19 OTHER, colp scheduled, Problem addressed states she is congested, not sure if head cold or if she's getting something. pt is stressed out and stopped smoking but want to know how bad it would be if she started again anxiety addressed encouraged exercise continue to avoid tobacco social stresses from family with they don't want it lost food stamps cant work more or concerned will lose medical she needs a bigger place to keep custody of kid tried multiple meds in past nothing worked will do gene sight today Review of Systems Constitutional: Denies chills, denies fever, no weight gain/loss, energized Eyes: no blurry vision, no double vision, normal conjunctiva Cardiovascular: denies angina, denies chest pain, denies palpitations Respiratory: denies difficulty breathing, denies chest tightness, denies cough Gastrointestinal: denies abdominal pain, denies diarrhea, denies dysphagia, denies nausea, denies vomiting Genitourinary: see HPI for details Musculoskeletal: denies arthralgias, denies muscle aches, denies paresthesia Skin: denies hives, denies rashes, denies sores Psychologic: denies anxiety, denies hallucinations, denies agitation Physical Exam Vitals & Measurements No Vital Signs available for this visit. Depression Screening Scores Initial Depression Screen Score: 0 (05/28/19 11:41:00) Fall Risk Assessment Is the patient ambulatory (mobile): Yes (05/28/19 11:41:00) Have you had a fall within the past: No (05/28/19 11:41:00) Have you had 2 or more falls in the past: No (05/28/19 11:41:00) Constitutional: Appears appropriate for age, non-toxic, and comfortable. No signs of apparent distress present. Speech is clear and appropriate. Awake and oriented x3. Stand comfortably erect. Patient is cooperative. VSS Eyes: Full range of extra-ocular motion. Conjunctivae clear. Neck: Supple and no Thyromegaly Respiratory: Chest expansion is adequate bilaterally. No work of breath Cardiovascular: Rate is regular. Abdomen: Soft and Non-tender, Non distended Musculoskeletal: Walks with a normal gait. Motor strength is intact Skin: Warm and dry with no evidence of unusual rashes or suspicious lesions. Neurological: Alert and oriented x 3. Mood is distressed Lab Results Last Months Labs No qualifying data available. Diagnostic Results Procedure Colposcopy Consent obtain. Possible risks explained to patient who states understanding, consent obtained for colposcopy exam with cervical biopsy and ECC. Procedure: Patient was placed in the dorsal lithotomy position. The vulva was normal in appearance with no evidence of skin lesions. The cervix was visualized with a speculum and noted to be grossly normal in appearance. The cervix and upper vagina were cleansed with diluted Acetic acid. The entire squamocolumnar junction was visualized with the colposcope, multiple biopsies were taken of the anterior and posterior cervix, and ECC not done due to . Monsels paste applied or Silver Nitrate applied to obtain excellent hemostasis. Specimen sent to pathology. Patient tolerated procedure well. Plan: Repeat pap in 1 year unless pathology determines otherwise Assessment/Plan 1. 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 Bipolar 2 disorder F31.81 Ordered: AMB Office/Outpt Est Pt (approx 15 min) 86834, 25 Separate E/M same day w/procedure 05/28/2019 17:12:00 EDT, Bipolar 2 disorder / Anxiety / 20 weeks gestation of 3. 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 20 weeks gestation of Z3A.20 Ordered: AMB Office/Outpt Est Pt (approx 15 min) 47663, 25 Separate E/M same day w/procedure 05/28/2019 17:12:00 EDT, Bipolar 2 disorder / Anxiety / 20 weeks gestation of Problem List/Past Medical History Ongoing Advanced maternal age in multigravida Bipolar 2 disorder BMI 27.0-27.9,adult Chest pain Chronic GERD Chronic low back pain Depression Glaucoma History of anemia in History of gestational hypertension w/1st & 3rd preg Intermediate uveitis JRA (juvenile rheumatoid arthritis) Vision loss, left eye Historical Procedure/Surgical History Last pap - ASCUS +HPV: 04/02/19 Cataract surgery - Left eye: 08/2018 left eye drain for glaucoma: 08/05/17 Colposcopy -: 2016 sinus right elbow Medications Aspirin Low Strength 81 mg oral delayed release tablet, 81 mg= 1 tabs, ORAL, DAILY azelastine 137 mcg/inh (0.1%) nasal spray, 1 sprays, Intranasal, BID Claritin 10 mg oral tablet, 10 mg= 1 tabs, ORAL, DAILY, 1 refills Flonase, 1 sprays, Intranasal, DAILY magnesium gluconate 250 mg oral tablet, 250 mg= 1 tabs, ORAL, BID omeprazole, ORAL, DAILY Prenate Mini with DHA oral capsule, 1 caps, ORAL, DAILY, 3 refills riboflavin 400 mg oral capsule, 400 mg= 1 caps, ORAL, DAILY Allergies penicillins (tongue swells up, lips turned purple) sulfa drugs (tongue swells up, lips turn purple) Social History Alcohol - Denies Alcohol Use Sexual Sexually active: Yes. Other contraceptive use: preg. Substance Abuse - Denies Substance Abuse Tobacco Former smoker, quit more than 30 days ago Tobacco Use:. Family History Endometriosis: Sister. Lung cancer: Grandfather and Grandmother. Other: Mother. . Health Maintenance Pending (in the next year) OverDue Diabetes Screening due and every Due Influenza Vaccine due 06/01/19 and every MMR Vaccine Dose 1 due 06/01/19 One-time only Tetanus Vaccine due 06/01/19 and every 10 years Varicella Vaccine Dose 1 due 06/01/19 One-time only Satisfied (in the past 1 year) There are no satisfied recommendations within the defined date range Normal [facility] US GRAVID ECHO LESS THAN 14 WEEKS OFFICEon 04-12-2019 Cholesterol [Mass/Vol] _A transabdominal ultrasound was performed to confirm . A gestational sac was seen in the uterus with a normal appearing yolk sac. The fetus measured 1.4 cm and is consistent wtih 7 weeks 5 days. The heart rate was 156 beats per minute. The growth is consistent with the last menstrual period dating and estimated date of confinement should be October 15, 2019. The ovaries appear normal. There was no free fluid in the pelvis. anatomy was not assessed due to the early gestational age. Impression: A thibodeaux intrauterine measuring 7 weeks 5 days with an estimated date of confinement of October 15, 2019. [facility] Comment on above: Order Comment: Order ed on Fin# [id number] Result Comment: Tech nologist: EAW Dictated By: CYRUS MIX MD, FACOG Signed By: CYRUS MIX MD, FACOG Transcribed: 04.12.2019 21:57 Signed Out: 04/12/19 21:57:52 Phone goterence 04-08-2019 Phone Msg - From: Heidi Rodriguez To: CYRUS MIX MD; Sent: 04/08/2019 12:25:53 EDT Subject: Requesting call to dentist Susana had some dental work done yesterday and is in a lot of pain. Since she is 12 week , her dentist didn't know what prescription would be safe for the pain. He asked for you to give him a call to discuss it. His name is Dr. David Ratliff and his number is [phone] ext[phone] [facility] C URINEon 04-04-2019 C URINE [facility] pt of Laboratory Services [address] [place] [id number] Name: SUSANA LOYOLA : 1980 Admitting Provider: Gender: Female Financial [id number] Number: Location: [facility]. Admit 04/02/2019 Date: Discharge 04/02/2019 Date: Microbiology PROCEDURE: C URINE [] SOURCE: CLEAN CATCH BODY SITE: COLLECTED DATE/TIME: 04/02/2019 13:08 EDT RECEIVED DATE/TIME: 04/03/2019 06:50 EDT START DATE/TIME: 04/03/2019 06:50 EDT FREE TEXT SOURCE: ORDERING PHYSICIAN: KHANG WYNN DO, FACOG FINAL REPORTS Final Report [] Verified Date/Time: 04/04/2019 11:03 EDT No growth after 24 hours. L=Low, H= High, *= Abnormal, C=Critical, f=Footnote, c=Corrected, i=Interp Data Name: SUSANA LOYOLA Print Date/ 04/05/2019 14:06 EDT Time: Normal [facility] Comment on above: Performed By: #### 1 [id number], [id number], 350950, 803275, 192097, 513864, [id number] #### [facility] Laboratory Services [address] [place] [address] Master Rigger: Franck Bello MD [facility] Albumin/Globulin [Mass ratio] 1.1 {ratio} Normal [facility] Comment on above: Order Comment: Order ed on [facility]# [id number] Performed By: #### 1 75242, [id number], 437672, 625094, 265520, 895464, 712403 #### [facility] Laboratory Services [address] [place] [address] Master Rigger: Franck Bello MD GFR AA >60 Normal [facility] Comment on above: Order Comment: Order ed on Fin# [id number] Result Comment: Afri can Chinese GFR Calc Medical judgement is necessary to interpret GFR. The calculated GFR may not accurately reflect renal status in patients >70 years, women, acutely ill hospitalized patients and patients with acute renal failure or known renal disease. The MDRD GFR formula is valid only for adults greater than 18 years of age. Note: Creatinine clearance (not GFR) should be used for drug dosing. Performed By: #### 1 42035, [id number], 985130, 576483, 782468, 724826, 658276 #### [facility] Laboratory Services [address] [place] [address] Master Rigger: Franck Bello MD GFR/1.73 sq M predicted among non-blacks MDRD (S/P/Bld) [Vol rate/Area] mL/min/{1.73_m2} Normal [facility] Comment on above: Order Comment: Order ed on [facility]# [id number] Result Comment: Non GFR Calc Medical judgement is necessary to interpret GFR. The calculated GFR may not accurately reflect renal status in patients >70 years, women, acutely ill hospitalized patients and patients with acute renal failure or known renal disease. The MDRD GFR formula is valid only for adults greater than 18 years of age. Note: Creatinine clearance (not GFR) should be used for drug dosing. Performed By: #### 1 68693, [id number], 428191, 213829, 307219, 970703, 956660 #### [facility] Laboratory Services [address] [place] [address] Master Rigger: Franck Bello MD Osmolality [Osmolality] 272 mOsm/kg Low 275-295 [facility] Comment on above: Order Comment: Order ed on Fin# [id number] Performed By: #### 1 44638, [id number], 938190, 567167, 446440, 561785, 977358 #### [facility] Laboratory Services [address] [place] [address] Master Rigger: Franck Bello MD Urea nitrogen/Creatinine [Mass ratio] 8.9 mg/mg Normal [facility] Comment on above: Order Comment: Order ed on Fin# [id number] Performed By: #### 1 29316, 8369990, 860905, 677309, 952060, 491046, 808773 #### [facility] Laboratory Services [address] [place] [address] [id number] Master Rigger: Franck Bello MD Albumin [Mass/Vol] 4.3 g/dL Normal 3.4-5.0 [facility] Comment on above: Order Comment: Order ed on Fin# [id number] Performed By: #### 1 29791, [id number], 063083, 747345, 751170, 544201, 544945 #### [facility] Laboratory Services [address] [place] [address] [id number] Master Rigger: Franck Bello MD Alk Phos 81 unit/L Normal 45-117 [facility] Comment on above: Order Comment: Order ed on Fin# [id number] Performed By: #### 1 65548, 0524550, 043273, 199669, 050573, 990944, 876533 #### [facility] Laboratory Services [address] [place] [address] Master Rigger: Franck Bello MD Bilirubin [Mass/Vol] 0.27 mg/dL Normal 0.20-1.00 [facility] Comment on above: Order Comment: Order ed on Fin# [id number] Performed By: #### 1 18690, 0052971, 995985, 056597, 260275, 161245, 419633 #### [facility] Laboratory Services [address] [place] [address] Master Rigger: Franck Bello MD Calcium [Mass/Vol] 9.6 mg/dL Normal 8.5-10.5 [facility] Comment on above: Order Comment: Order ed on Fin# [id number] Performed By: #### 1 03381, 6253439, 469487, 698167, 891097, 751834, 098162 #### [facility] Laboratory Services [address] [place] [address] Master Rigger: Franck Bello MD Chloride [Moles/Vol] 104 mmol/L Normal 100-109 [facility] Comment on above: Order Comment: Order ed on Fin# [id number] Performed By: #### 1 49809, 7433433, 160797, 646494, 958732, 422037, 660421 #### [facility] [address] [place] [address] [phone] Master Rigger: Franck Bello MD CO2, venous 24.9 mmol/L Normal 21.0-32.0 [facility] Comment on above: Order Comment: Order ed on Fin# [id number] Performed By: #### 1 02648, 8243365, 998791, 846157, 315680, 772601, 703787 #### [facility] [address] [place] [address] 44130 Master Rigger: Franck Bello MD Creatinine [Mass/Vol] 0.7 mg/dL Normal 0.6-1.0 [facility] Comment on above: Order Comment: Order ed on Fin# [id number] Performed By: #### 1 14531, 1755446, 312498, 126649, 051555, 151142, 126657 #### [facility] [address] [place] [address] [phone] Master Rigger: Franck Bello MD Globulin (S) [Mass/Vol] 3.8 g/dL Normal [facility] Comment on above: Order Comment: Order ed on Fin# [id number] Performed By: #### 1 96649, 9562395, 868016, 552280, 024690, 086384, 027875 #### [facility] [address] [place] [address] 44130 Master Rigger: Franck Bello MD Glucose [Mass/Vol] 71 mg/dL Low 72-100 [facility] Comment on above: Order Comment: Order ed on Fin# [id number] Result Comment: Diana puncture should occur prior to sulfasalazine administration due to the potential for falsely depressed results. Venipuncture should occur prior to sulfapyridine administration due to the potential falsely elevated results. Baseline assay values before administration of sulfasalazine and sulfapyridine therapy would not be affected. Performed By: #### 1 51739, 7936291, 328567, 572710, 334200, 008625, 497024 #### [facility] [address] [place] [address] 47578 Master Rigger: Franck Bello MD GOT 9 unit/L Low 15-37 [facility] Comment on above: Order Comment: Order ed on Fin# [id number] Result Comment: Diana puncture should occur prior to sulfasalazine and/or sulfapyridine administration due to the potential for falsely depressed results. Baseline assay values before administration of sulfasalazine and sulfapyridine therapy would not be affected. Performed By: #### 1 89678, 9375348, 062443, 542521, 811107, 095494, 344783 #### [facility] [address] [place] [address] 04423 Master Rigger: Franck Bello MD GPT 20 unit/L Normal 13-56 [facility] Comment on above: Order Comment: Order ed on Fin# [id number] Result Comment: Diana puncture should occur prior to sulfasalazine and/or sulfapyridine administration due to the potential for falsely depressed results. Baseline assay values before administration of sulfasalazine and sulfapyridine therapy would not be affected. Performed By: #### 1 47335, 4445645, 162983, 055081, 680970, 057710, 509632 #### [facility] [address] [place] [address] 44130 Master Rigger: Franck Bello MD Potassium [Moles/Vol] 4.3 mmol/L Normal 3.5-5.1 [facility] Comment on above: Order Comment: Order ed on Fin# [id number] Performed By: #### 1 77806, 4203032, 472137, 993456, 508353, 470542, 081070 #### [facility] [address] [place], [place] [phone] Master Rigger: Franck Bello MD Protein [Mass/Vol] 8.1 g/dL Normal 6.0-8.5 [facility] Comment on above: Order Comment: Order ed on Fin# [id number] Performed By: #### 1 78779, 8101554, 022010, 910601, 687276, 170680, 207149 #### [facility] [address] [place] [address] [phone] Master Rigger: Franck Bello MD Sodium [Moles/Vol] 138 mmol/L Normal 135-145 [facility] Comment on above: Order Comment: Order ed on Fin# [id number] Performed By: #### 1 44136, 6272587, 530567, 830707, 148650, 191539, 503370 #### [facility] [address] [place], [place] [phone] Master Rigger: Franck Bello MD Urea nitrogen [Mass/Vol] 6 mg/dL Low 10-20 [facility] Comment on above: Order Comment: Order ed on Fin# [id number] Performed By: #### 1 44200, 2482905, 589012, 990330, 711136, 639517, 983767 #### [facility] [address] [place] [address] 44130 Master Rigger: Franck Bello MD CHLon 04-03-2019 Genprobe Chlamydia Negative Normal [facility] Comment on above: Order Comment: Order ed on Fin# [id number] Result Comment: This Chlamydia assay is being performed via a second generation NAAT that utilizes target capture, production engineer mediated amplification and dual kenetic assay technologies. Performed By: #### 1 51685, 4621717, 728796, 524947, 593456, 005727, 997842 #### [facility] [address] [place] [address] 44130 Master Rigger: Franck Bello MD GP GCon 04-03-2019 Genprobe GC Negative Normal [facility] Comment on above: Order Comment: Order ed on Fin# [id number] Result Comment: This Gonorrhoea assay is being performed via a second generation NAAT that utilizes target capture, production engineer mediated amplification and dual kenetic assay technologies. Performed By: #### 1 59790, 3093811, 857687, 608615, 135578, 488291, 640611 #### [facility] [address] [place] [address] [phone] Master Rigger: Franck Bello MD HEP B AGon 04-03-2019 Hepatitis B Surface Antigen Nonreactive Normal [facility] Comment on above: Order Comment: Order ed on Fin# [id number] Result Comment: High levels of serum biotin may interfere with this test. Performed By: #### 1 58325, 7852393, 980837, 375367, 678364, 910843, 310140 #### [facility] [address] [place] [address] [phone] Master Rigger: Franck Bello MD HEP C ABon 04-03-2019 Hepatitis C Antibody Nonreactive Normal [facility] Comment on above: Order Comment: Order ed on Fin# [id number] Performed By: #### 1 13489, 6450901, 753407, 308173, 809658, 502725, 935400 #### [facility] [address] [place] [address] 27297 Master Rigger: Franck Bello MD HIV 1O2on 04-03-2019 HIV Panel 1&[address] [facility] Comment on above: Order Comment: Order ed on Fin# [id number] Performed By: #### 1 77595, 9095379, 096624, 542758, 576646, 939177, 984589 #### [facility] [address] [place] [address] [phone] Master Rigger: rFanck Bello MD MISC TRHL0mo 04-03-2019 Misc Sendout See Report Normal [facility] Comment on above: Order Comment: [facility] Ordered on Fin# [id number] Performed By: #### 1 40972, 0397678, 640082, 385133, 470365, 588030, 080482 #### [facility] [address] [place] [address] [phone] Master Rigger: Franck Bello MD RPRon 04-03-2019 Reagin Ab RPR Ql (S) Non Reactiive Normal S [facility] Comment on above: Order Comment: Order ed on Fin# [id number] Performed By: #### 1 38346, 4287916, 368760, 496651, 319044, 061037, 278396 #### [facility] [address] [place] [address] 44130 Master Rigger: Franck Bello MD RUBELLA SCREENon 04-03-2019 Rubella Serology Immune Normal [facility] Comment on above: Order Comment: Order ed on Fin# [id number] Performed By: #### 1 53289, 1167045, 003552, 401088, 741166, 983818, 165977 #### [facility] [address] [place] [address] 44130 Master Rigger: Franck Bello MD URICon 04-03-2019 Urate [Mass/Vol] 3.1 mg/dL Low 3.9-7.8 [facility] Comment on above: Order Comment: Order ed on Fin# [id number] Performed By: #### 1 17806, 5148022, 613570, 878894, 936492, 470344, 796018 #### [facility] [address] [place] [address] 44130 Master Rigger: Franck Bello MD AUTO DIFFon 04-02-2019 Basophils (Bld) [#/Vol] 0.05 x1000 Normal 0.00-0.20 [facility] Comment on above: Performed By: #### 1 73758, 4319248, 711290, 734614, 258617, 381725, 332857 #### [facility] [address] [place], [place] [phone] Master Rigger: Franck Bello MD Basos % 0.6 % Normal [facility] Comment on above: Performed By: #### 1 01242, 7257544, 753610, 786542, 698771, 253593, 854654 #### [facility] [address] [place], [place] [phone] Master Rigger: Franck Bello MD Eos Count 0.06 x1000 Normal 0.00-0.50 [facility] Comment on above: Performed By: #### 1 06184, 3410917, 219134, 979589, 099680, 680820, 391528 #### [facility] [address] [place], [place] [phone] Master Rigger: Franck Bello MD Eosinophils/100 WBC (Bld) 0.7 % Normal [facility] Comment on above: Performed By: #### 1 32967, 0349595, 124136, 855767, 195477, 015393, 265858 #### [facility] [address] [place], [place] [phone] Master Rigger: Franck Bello MD Lymphocytes (Bld) [#/Vol] 2.10 x1000 Normal 1.20-4.80 [facility] Comment on above: Performed By: #### 1 31300, 2363865, 745960, 401686, 124085, 739769, 901051 #### [facility] [address] [place] [address] 53899 Master Rigger: Franck Bello MD Lymphocytes/100 WBC (Bld) 23.1 % Normal [facility] Comment on above: Performed By: #### 1 27114, 1891165, 848126, 374338, 312087, 470962, 899583 #### [facility] [address] [place] [address] 67101 Master Rigger: Franck Bello MD Grundy Count 0.62 x1000 Normal 0.10-1.00 [facility] Comment on above: Performed By: #### 1 00549, 9086924, 761558, 713529, 352696, 398605, 402519 #### [facility] [address] [place] [address] 04676 Master Rigger: Franck Bello MD Monocytes/100 WBC (Bld) 6.9 % Normal [facility] Comment on above: Performed By: #### 1 89874, 3205288, 212229, 210409, 864187, 056795, 508231 #### [facility] [address] [place] [address] 79119 Master Rigger: Franck Bello MD Neutrophils (Bld) [#/Vol] 6.24 x1000 Normal 1.40-8.80 [facility] Comment on above: Performed By: #### 1 77732, 6606057, 968842, 623293, 645697, 644869, 220988 #### [facility] [address] [place] [address] 72159 Master Rigger: Franck Bello MD Neutrophils/100 WBC (Bld) 68.7 % Normal [facility] Comment on above: Performed By: #### 1 32868, 0340808, 090610, 405442, 733427, 153276, 087466 #### [facility] [address] [place] [address] 49898 Master Rigger: Franck Bello MD HEMOon 04-02-2019 DIFF? No Normal [facility] Comment on above: Performed By: #### 1 55213, 2411725, 002763, 090799, 205818, 954031, 071947 #### [facility] [address] [place] [address] 44130 Master Rigger: Franck Bello MD Erythrocyte distribution width (RBC) [Ratio] 12.6 % Normal 11.5-14.5 [facility] Comment on above: Performed By: #### 1 85096, 1376836, 568170, 392790, 059119, 101448, 920151 #### [facility] [address] [place] [address] 44130 Master Rigger: Franck Bello MD Hematocrit (Bld) [Volume fraction] 39.1 % Normal 36.0-46.0 [facility] Comment on above: Performed By: #### 1 74099, 8385069, 052626, 283007, 917760, 743363, 657713 #### [facility] [address] [place] [address] 44130 Master Rigger: Franck Bello MD Hemoglobin (Bld) [Mass/Vol] 13.2 g/dL Normal 12.0-16.0 [facility] Comment on above: Performed By: #### 1 77539, 7896098, 804860, 392680, 508505, 746115, 443722 #### [facility] [address] [place] [address] 44130 Master Rigger: Franck Bello MD MCH (RBC) [Entitic mass] 30.2 pg Normal 27.0-34.0 [facility] Comment on above: Performed By: #### 1 76814, 4295425, 745505, 337297, 939454, 143562, 059290 #### [facility] [address] [place] [address] 68313 Master Rigger: Franck Bello MD MCHC (RBC) [Mass/Vol] 33.8 g/dL Normal 32.0-37.0 [facility] Comment on above: Performed By: #### 1 61747, 0796047, 238287, 787978, 083633, 892481, 317394 #### [facility] [address] [place] [address] 18088 Master Rigger: Franck Bello MD MCV (RBC) [Entitic vol] 89.2 fL Normal 80.0-100.0 [facility] Comment on above: Performed By: #### 1 87509, 9986166, 555307, 161910, 821943, 812716, 854387 #### [facility] [address] [place] [address] 56809 Master Rigger: Franck Bello MD Nucleated RBC (Bld) [#/Vol] 0 /100WBC Normal [facility] Comment on above: Performed By: #### 1 95957, 6230081, 681765, 505234, 922951, 941896, 862917 #### [facility] [address] [place] [address] 42230 Master Rigger: Franck Bello MD Platelet mean volume (Bld) [Entitic vol] 9.9 fL Normal 7.4-10.4 [facility] Comment on above: Performed By: #### 1 21633, 7330795, 189876, 013530, 489540, 213111, 702899 #### [facility] [address] [place] [address] 68091 Master Rigger: Franck Bello MD Platelets (Bld) [#/Vol] 309 x1000 Normal 150-450 [facility] Comment on above: Performed By: #### 1 60533, 2341211, 175968, 511848, 079533, 255157, 859325 #### [facility] [address] [place] [address] 54458 Master Rigger: Franck Bello MD RBC (Bld) [#/Vol] 4.38 x10 Normal 4.20-5.40 [facility] Comment on above: Result Comment: Note : RBC morphology is normal unless otherwise stated. Evaluation performed only if differential is requested. Performed By: #### 1 05678, 1905595, 316571, 483888, 719196, 492726, 080412 #### [facility] [address] [place] [address] 48730 Master Rigger: Franck Bello MD WBC (Bld) [#/Vol] 9.1 10*3/uL Normal [facility] Comment on above: Performed By: #### 1 96552, 1543209, 884900, 314238, 996575, 913168, 567365 #### [facility] [address] [place] [address] 64390 Master Rigger: Franck Bello MD WBC (Bld) [#/Vol] 9.1 x10 Normal 4.5-11.0 [facility] Comment on above: Performed By: #### 1 37642, 9047373, 112838, 645270, 419379, 695876, 231476 #### [facility] [address] [place], [place] [phone] Master Rigger: Franck Bello MD APTTon 12-16-2018 aPTT Coag (Bld) [Time] 37.2 s Normal 28.0-38.0 [facility] Comment on above: Performed By: #### 1 15749, 9098275, 130253, 100430, 107809, 249020, 412333 #### [facility] [address] [place], [place] [phone] Master Rigger: Franck Bello MD AUTO DIFFon 12-16-2018 Basophils (Bld) [#/Vol] 0.00 x1000 Normal 0.00-0.20 [facility] Comment on above: Performed By: #### 1 76243, 5361556, 747898, 408794, 245374, 456124, 178753 #### [facility] [address] [place] [address] 18314 Master Rigger: Franck Bello MD Basos % 0.3 % Normal [facility] Comment on above: Performed By: #### 1 70719, 9784829, 260940, 316494, 576661, 507494, 449067 #### [facility] [address] [place] [address] 86306 Master Rigger: Franck Bello MD Eos Count 0.00 x1000 Normal 0.00-0.50 [facility] Comment on above: Performed By: #### 1 00433, 9716228, 178907, 937436, 336299, 461484, 783955 #### [facility] [address] [place] [address] 10722 Master Rigger: Franck Bello MD Eosinophils/100 WBC (Bld) 0.6 % Normal [facility] Comment on above: Performed By: #### 1 92524, 4261750, 340392, 673976, 007774, 043472, 063195 #### [facility] [address] [place] [address] 61081 Master Rigger: Franck Bello MD Lymphocytes (Bld) [#/Vol] 2.70 x1000 Normal 1.20-4.80 [facility] Comment on above: Performed By: #### 1 91297, 8050423, 830837, 959636, 598538, 132103, 940965 #### [facility] [address] [place] [address] 06878 Master Rigger: Franck Bello MD Lymphocytes/100 WBC (Bld) 33.7 % Normal [facility] Comment on above: Performed By: #### 1 31134, 5838116, 041757, 598645, 053833, 797369, 280044 #### [facility] [address] [place] [address] 62160 Master Rigger: Franck Bello MD Grundy Count 0.50 x1000 Normal 0.10-1.00 [facility] Comment on above: Performed By: #### 1 20834, 4713836, 955208, 099699, 842323, 424456, 279062 #### [facility] [address] [place] [address] 76046 Master Rigger: Franck Bello MD Monocytes/100 WBC (Bld) 6.2 % Normal [facility] Comment on above: Performed By: #### 1 51834, 0823291, 400165, 532315, 316045, 642818, 121923 #### [facility] [address] [place] [address] 40811 Master Rigger: Franck Bello MD Neutrophils (Bld) [#/Vol] 4.70 x1000 Normal 1.40-8.80 [facility] Comment on above: Performed By: #### 1 13031, 7344954, 727138, 267087, 489598, 998878, 616792 #### [facility] [address] [place] [address] 44130 Master Rigger: Franck Bello MD Neutrophils/100 WBC (Bld) 59.2 % Normal [facility] Comment on above: Performed By: #### 1 50684, 7452222, 598310, 340117, 613569, 825918, 037642 #### [facility] [address] [place] [address] 44130 Master Rigger: Franck Bello MD COMPMETAon 12-16-2018 GFR/1.73 sq M predicted among non-blacks MDRD (S/P/Bld) [Vol rate/Area] 63 mL/min/{1.73_m2} Normal [facility] Comment on above: Result Comment: The GFR is calculated and is Age, Sex, and Race adjusted. Performed By: #### 1 99872, 0843873, 439099, 839884, 497455, 078823, 186807 #### [facility] [address] [place] [address] 44130 Master Rigger: Franck Bello MD Albumin [Mass/Vol] 4.2 g/dL Normal 3.4-5.0 [facility] Comment on above: Performed By: #### 1 93944, 5608997, 297272, 491342, 941598, 641945, 565637 #### [facility] [address] [place] [address] 55338 Master Rigger: Franck Bello MD Albumin/Globulin [Mass ratio] 1.2 {ratio} Normal [facility] Comment on above: Performed By: #### 1 16978, 7875752, 654011, 149435, 514683, 845439, 233047 #### [facility] [address] [place] [address] 57031 Master Rigger: Franck Bello MD Alk Phos 87 unit/L Normal 45-117 [facility] Comment on above: Performed By: #### 1 17958, 3643771, 234725, 177561, 496104, 320593, 296446 #### [facility] [address] [place] [address] 76957 Master Rigger: Franck Bello MD Bilirubin [Mass/Vol] 0.40 mg/dL Normal 0.20-1.00 [facility] Comment on above: Performed By: #### 1 62838, 0147851, 674500, 495844, 790636, 406291, 357196 #### [facility] [address] [place] [address] 24651 Master Rigger: Franck Bello MD Calcium [Mass/Vol] 8.9 mg/dL Normal 8.5-10.5 [facility] Comment on above: Performed By: #### 1 43416, 1468865, 077148, 712022, 314407, 424554, 303791 #### [facility] [address] [place] [address] 02837 Master Rigger: Franck Bello MD Chloride [Moles/Vol] 103 mmol/L Normal 100-109 [facility] Comment on above: Performed By: #### 1 04595, 4221492, 435941, 011590, 942744, 336546, 665632 #### [facility] [address] [place] [address] Master Rigger: Franck Bello MD CO2, venous 25.2 mmol/L Normal 21.0-32.0 [facility] Comment on above: Performed By: #### 1 47695, 9973419, 391158, 609713, 116523, 055299, 688247 #### [facility] [address] [place] [address] 90128 Master Rigger: Franck Bello MD Creatinine [Mass/Vol] 1.0 mg/dL Normal 0.6-1.0 [facility] Comment on above: Performed By: #### 1 24002, 8590463, 445937, 178966, 887952, 533349, 848486 #### [facility] [address] [place] [address] 43251 Master Rigger: Franck Bello MD Globulin (S) [Mass/Vol] 3.5 g/dL Normal [facility] Comment on above: Performed By: #### 1 76332, 4225845, 147720, 351702, 987630, 124502, 552746 #### [facility] [address] [place] [address] 64087 Master Rigger: Franck Bello MD Glucose [Mass/Vol] 98 mg/dL Normal 72-100 [facility] Comment on above: Result Comment: Diana puncture should occur prior to sulfasalazine administration due to the potential for falsely depressed results. Venipuncture should occur prior to sulfapyridine administration due to the potential falsely elevated results. Baseline assay values before administration of sulfasalazine and sulfapyridine therapy would not be affected. Performed By: #### 1 43922, 8984738, 285256, 166123, 998652, 494308, 464513 #### [facility] [address] [place] [address] 11421 Master Rigger: Franck Bello MD GOT 14 unit/L Low 15-37 [facility] Comment on above: Result Comment: Diana puncture should occur prior to sulfasalazine administration due to the potential for falsely depressed results. Baseline assay values before administration of sulfasalazine and sulfapyridine therapy would not be affected. Performed By: #### 1 27386, 8558842, 885300, 324351, 711136, 323441, 709028 #### [facility] [address] [place] [address] 02161 Master Rigger: Franck Bello MD GPT 24 unit/L Normal 14-59 [facility] Comment on above: Result Comment: Diana puncture should occur prior to sulfasalazine administration due to the potential for falsely depressed results. Baseline assay values before administration of sulfasalazine and sulfapyridine therapy would not be affected. Performed By: #### 1 39881, 8859450, 201648, 150836, 143552, 980413, 151420 #### [facility] [address] [place] [address] 69387 Master Rigger: Franck Bello MD Osmolality [Osmolality] 281 mOsm/kg Normal 275-295 [facility] Comment on above: Performed By: #### 1 30896, 1646607, 842350, 997430, 571416, 939396, 678618 #### [facility] [facility] [address] [place] [address] Master Rigger: Franck Bello MD Potassium [Moles/Vol] 3.4 mmol/L Low 3.5-5.1 [facility] Comment on above: Performed By: #### 1 65263, [id number], 374258, 306236, 530907, 112438, 861882 #### [facility] [address] [place] [address] Master Rigger: Franck Bello MD Protein [Mass/Vol] 7.7 g/dL Normal 6.0-8.5 [facility] Comment on above: Performed By: #### 1 75152, 6778045, 075296, 206558, 759757, 607432, 061031 #### [facility] [address] [place] [address] Master Rigger: Franck Bello MD Sodium [Moles/Vol] 141 mmol/L Normal 135-145 [facility] Comment on above: Performed By: #### 1 29960, 2678978, 539755, 629159, 821738, 085428, 908073 #### [facility] [address] [place] [address] Master Rigger: Franck Bello MD Urea nitrogen [Mass/Vol] 13 mg/dL Normal 10-20 [facility] Comment on above: Performed By: #### 1 18050, 2027324, 134709, 279570, 581349, 887796, 956724 #### [facility] [address] [place] [address] Master Rigger: Franck Bello MD Urea nitrogen/Creatinine [Mass ratio] 13.0 mg/mg Normal [facility] Comment on above: Performed By: #### 1 90631, 7325947, 424054, 467043, 259463, 928369, 720682 #### [facility] [address] [place] [address] Master Rigger: Franck Bello MD ED Physician Reporton 2018 ED Physician Report Patient: CRAIG LOYOLA Age: 38 years Sex: Female : 1980 Associated Diagnoses: Chest pain Author: TAMMY AMAYA MD Basic Information Time seen: Date & time 12/16/2018 16:35:00. History source: Patient. Arrival mode: Private vehicle. History limitation: None. History of Present Illness The patient presents with chest pain. The onset was 3 days ago. The course/duration of symptoms is episodic: 50 total episodes. Location: substernal. Radiating pain: none. The character of symptoms is sharp. The degree at onset was moderate. The degree at maximum was moderate. The degree at present is none. The exacerbating factor is none. The relieving factor is none. Risk factors consist of smoking, not coronary artery disease, not hypertension, not diabetes mellitus, not obesity, not hyperlipidemia, not pulmonary embolism, not deep vein thrombosis and not family history of coronary artery disease. Prior episodes: none. Therapy today None. Associated symptoms: shortness of breath. Review of Systems Constitutional symptoms: No fever, no chills, no decreased activity. Skin symptoms: No rash, no petechiae. Eye symptoms: Vision unchanged, No recent vision problems, ENMT symptoms: No sore throat, no nasal congestion. Respiratory symptoms: Shortness of breath, No cough, Cardiovascular symptoms: Chest pain, no palpitations, no peripheral edema. Gastrointestinal symptoms: No abdominal pain, no vomiting, no diarrhea. Genitourinary symptoms: No dysuria, no hematuria. Musculoskeletal symptoms: No back pain, no Joint pain. Neurologic symptoms No headache, no altered level of consciousness, no weakness. Additional review of systems information: All other systems reviewed and otherwise negative. Health Status Allergies: Allergic Reactions (Selected) Severity Not Documented Penicillins- No reactions were documented. Sulfa drugs- No reactions were documented.. Past Medical/ Family/ Social History Medical history: No active or resolved past medical history items have been selected or recorded.. Surgical history: left eye drain for glaucoma on 08/05/2017 at 36 Years. sinus. right elbow.. Family history: Entire family history is negative.. Problem list: Active Problems (10) Bipolar 2 disorder Chronic GERD Chronic low back pain Depression Glaucoma HTN (hypertension) Intermediate uveitis JRA (juvenile rheumatoid arthritis) Migraine Vision loss, left eye . Physical Examination Vital Signs SpO2 12/25/2017 8:15 EDT SpO2 95 % NORMAL . Medical Decision Making HEART Score History Slightly or Non-Suspicious - 0 points, ECG Nonspecific Repolarization - 1 point, Age < or = 45 years - 0 points, Risk Factors 1 or 2 Risk Factors - 1 point, Risk Factors Current or recent (< one month) smoker, Obesity, Score 2 . Differential Diagnosis: Anxiety, pulmonary embolism, atypical chest pain, pneumonia, costochondritis, not gastroesophageal reflux disease. Electrocardiogram: Time 12/16/2018 16:26:00, rate 95, normal sinus rhythm, No ST-T changes, ECG Interpretation 12/16/2018 16:34 EDT ED Nrsing Adlt Triage Sep Scrning - Text ED Nursing Adult Triage Sepsis Screening Tool 12/16/2018 16:32 EDT ED Emergency Severity Index Adult-Text PASCALE - Adult . Reexamination/ Reevaluation Vital signs Basic Oxygen Information 12/16/2018 16:34 EDT ED Nrsing Adlt Triage Sep Scrning - Text ED Nursing Adult Triage Sepsis Screening Tool 12/16/2018 16:32 EDT ED Emergency Severity Index Adult-Text PASCALE - Adult Impression and Plan Diagnosis Chest pain (PNED [id number], Reason For Visit, Emergency medicine, Medical) Plan Condition: Improved. Disposition: ED Discharge to Home was placed.(12/16/2018 20:01:27 EDT, Constant Order), Discharged: Time 12/16/2018 20:01:00, to home. Patient was given the following educational materials: Chest Pain - Nonspecific (Custom), Chest Pain - Nonspecific (Custom). Follow up with: KHUSHBU FARFAN, Internal Medicine Within 1 to 2 days. Counseled: Patient. [facility] ED Progress Noteon 9 ED Progress Note Patient discharged t o home. Voiced understanding to follow up with PCP this week. Normal [facility] ED Progress Note 1630 Patient arrives ambulatory. Complains of chest pain sharp intermittant x 4 days. Denies SOB. Denies chest pain at this time. EKG completed upon arrival. Placed on cardiac sonographer. No respiratory distress. Dr Amaya in to examine. Awaiting results. Pt offered pain medications, declines at this time/ [address] Amaya in to discuss results and plan of care. Will repeat troponin at 1920, per . Normal [facility] HCGon 12-16-2018 HCG, Qual <1.[address] [facility] Comment on above: Result Comment: 0 - 3 Negative 3 - 50 Inconclusive >50 Positive Performed By: #### 1 [id number] #### [facility] [address] [place] [address] Master Rigger: Franck Bello MD HEMOon 12-16-2018 DIFF? No [facility] Comment on above: Performed By: #### 1 04893, 2251677, 227888, 056019, 983719, 197447, 467484 #### [facility] [address] [place], [place] [id number] Master Rigger: Franck Bello MD Erythrocyte distribution width (RBC) [Ratio] 11.9 % Normal 11.5-14.5 [facility] Comment on above: Performed By: #### 1 68286, 6141815, 805796, 172309, 656441, 777061, 304926 #### [facility] [address] [place], [place] [id number] Master Rigger: Franck Bello MD Hematocrit (Bld) [Volume fraction] 36.4 % Normal 36.0-46.0 [facility] Comment on above: Performed By: #### 1 11526, 4141432, 724590, 596518, 252561, 716315, 717997 #### [facility] [address] [place], [place] [address] Master Rigger: Franck Bello MD Hemoglobin (Bld) [Mass/Vol] 12.8 g/dL Normal 12.0-16.0 [facility] Comment on above: Performed By: #### 1 64752, 6230694, 154793, 930345, 741453, 520964, 928448 #### [facility] [address] [place], [place] [address] Master Rigger: Franck Bello MD MCH (RBC) [Entitic mass] 30.5 pg Normal 27.0-34.0 [facility] Comment on above: Performed By: #### 1 90245, 2055534, 532445, 856579, 980436, 399237, 663788 #### [facility] [address] [place], [place] [address] Master Rigger: Franck Bello MD MCHC (RBC) [Mass/Vol] 35.1 g/dL Normal 32.0-37.0 [facility] Comment on above: Performed By: #### 1 17691, 7195236, 069458, 534733, 161477, 440257, 694292 #### [facility] [address] [place] [address] Master Rigger: Franck Bello MD MCV (RBC) [Entitic vol] 86.9 fL Normal 80.0-100.0 [facility] Comment on above: Performed By: #### 1 13727, 9809584, 939747, 428347, 245528, 232306, 259071 #### [facility] [address] [place] [address] Master Rigger: Franck Bello MD Nucleated RBC (Bld) [#/Vol] 0 /100WBC Normal [facility] Comment on above: Performed By: #### 1 78497, 5057828, 622059, 485875, 167806, 610890, 995219 #### [facility] [address] [place] [address] Master Rigger: Franck Bello MD Platelet mean volume (Bld) [Entitic vol] 8.9 fL Normal 7.4-10.4 [facility] Comment on above: Performed By: #### 1 07055, 5979659, 654041, 653316, 523796, 384603, 699550 #### [facility] [address] [place], [place] [address] Master Rigger: Franck Bello MD Platelets (Bld) [#/Vol] 301 x1000 Normal 150-450 [facility] Comment on above: Performed By: #### 1 47599, 2095255, 454136, 888640, 773855, 142081, 000899 #### [facility] [address] [place] [address] Master Rigger: Franck Bello MD RBC (Bld) [#/Vol] 4.19 x10 Low 4.20-5.40 [facility] Comment on above: Result Comment: Note : RBC morphology is normal unless otherwise stated. Evaluation performed only if differential is requested. Performed By: #### 1 25906, 5424898, 674051, 120986, 980430, 629377, 025375 #### [facility] [address] [place] [address] Master Rigger: Franck Bello MD WBC (Bld) [#/Vol] 8.0 x10 Normal 4.5-11.0 [facility] Comment on above: Performed By: #### 1 27719, 4729931, 721443, 706586, 442346, 754462, 224837 #### [facility] [address] [place] [address] Master Rigger: Franck Bello MD WBC (Bld) [#/Vol] 8.0 10*3/uL Normal [facility] Comment on above: Performed By: #### 1 58061, 9063632, 499586, 593821, 629348, 163768, 653998 #### [facility] [address] [place] [address] Master Rigger: Franck Bello MD MG LEVELon 12-16-2018 Magnesium [Mass/Vol] 1.9 mg/dL Normal 1.6-2.6 [facility] Comment on above: Performed By: #### 1 24010, 6566960, 768372, 604452, 682296, 554703, 627871 #### [facility] [address] [place] [address] Master Rigger: Franck Bello MD PT INRon 12-16-2018 INR Coag (PPP) [Relative time] 1.0 {INR} Normal [facility] Comment on above: Result Comment: Norm al reference range for INR on patients not on anticoagulant therapy: 0.9-1.1. General therapeutic range for patients on anticoagulant therapy: 2.0-3.5. Performed By: #### 1 24749, 4669616, 573008, 708182, 034991, 180890, 916824 #### [facility] [address] [place] [address] Master Rigger: Franck Bello MD Protime Patient 11.2 seconds Normal 9.7-12.7 [facility] Comment on above: Performed By: #### 1 69532, 6789927, 657552, 591000, 998171, 999688, 701488 #### [facility] [address] [place] [address] Master Rigger: Franck Bello MD TROPONINon 12-16-2018 Troponin I.cardiac [Mass/Vol] ng/mL Normal 0.000-0.09 9 [facility] Comment on above: Result Comment: This test is a quantitative determination of cardiac troponin I. High levels of serum biotin may interfere with this test. Performed By: #### 1 03806, 9310106, 553971, 101974, 916836, 240456, 935437 #### [facility] [address] [place] [address] Master Rigger: Franck Bello MD Troponin I.cardiac [Mass/Vol] ng/mL Normal 0.000-0.09 9 [facility] Comment on above: Result Comment: This test is a quantitative determination of cardiac troponin I. High levels of serum biotin may interfere with this test. Performed By: #### 1 65864, 5655986, 028277, 219726, 127429, 805469, 437391 #### [facility] [address] [place] [address] Master Rigger: Franck Bello MD XR CHEST PORTABLEon 12-17-19 19 XR CHEST PORTABLE PROCEDURE: XR CHEST PORTABLE TECHNIQUE: Chest radiograph single view. HISTORY: CHEST PAIN COMPARISONS: 07/2017 . FINDINGS: Heart: Normal. Mediastinum/Vessels: Normal. Lungs/Pleural space: Normal. Bony thorax: No acute osseous abnormality. Life support devices: None. IMPRESSION: No acute cardiopulmonary abnormality. This document is electronically signed by Chandu Naidu MD., December 16 2018 05:47:23 PM ET Technologist: AD Dictated By: CHANDU NAIDU MD Signed By: CHANDU NAIDU MD Signed Out: 12/16/18 17:46:22 Normal [facility] Follow Up (Rheumatology)on 09-10-2018 Follow Up (Rheumatology) Chief Complaint Migraines-neurologist cannot see patient until end of October History of Present Illness The patient is being seen for worsening symptoms of migraine headache. Symptoms: headache and nausea. The patient is currently experiencing symptoms. (pt unable to get into neurologist soon. Only has 10 maxalt per month and reports 20 migraines a month. Desires some relief. Had to call off work today) No associated symptoms are reported. Current treatment includes triptans. Review of Systems Constitutional: no fever, no chills, not feeling poorly, not feeling tired, no recent weight gain and no recent weight loss. ENT: nasal discharge, but no earache, no hearing loss, no nosebleeds, no sore throat and no hoarseness. Cardiovascular: the heart rate was not slow, the heart rate was not fast, no chest pain, no palpitations, no intermittent leg claudication and no lower extremity edema. Respiratory: no cough, not coughing up sputum and no wheezing that is consistent with asthma. Gastrointestinal: no abdominal pain, no constipation, no melena, no nausea, no diarrhea, no vomiting and no blood in stools. Musculoskeletal: arthralgias and joint swelling, but no myalgias, no back pain, no joint stiffness, no limb pain and no limb swelling. Integumentary: no rashes, no skin lesions, no itching, no skin wound and no dry skin. Neurological: headache, but no confusion, no numbness, no dizziness, no tingling and no fainting. Active Problems Allergic rhinitis, seasonal (477.9) (J30.2) Anxiety and depression (300.00,311) (F41.9,F32.9) Benign essential hypertension (401.1) (I10) Bipolar 2 disorder (296.89) (F31.81) Calcaneal spur of left foot (726.73) (M77.32) Calcaneal spur of right foot (726.73) (M77.31) Chronic low back pain (724.2,338.29) (M54.5,G89.29) GERD (gastroesophageal reflux disease) (530.81) (K21.9) Glaucoma (365.9) (H40.9) Headache, migraine (346.90) (G43.909) History of uveitis (V12.49) (Z86.69) JRA (juvenile rheumatoid arthritis) (714.30) (M08.00) Prepatellar bursitis of left knee (726.65) (M70.42) Tobacco dependence (305.1) (F17.200) Uveitis, intermediate (364.10) (H20.10) Vertigo (780.4) (R42) Vision loss of left eye (369.8) (H54.62) Past Medical History History of Abscess of buttock (682.5) (L02.31) History of Ankle dislocation, right, sequela (905.6) (S93.04XS) History of abnormal cervical Papanicolaou smear (V13.29) (Z87.898) History of alcohol abuse (305.03) (Z87.898) History of influenza vaccination (V49.89) (Z92.29) History of itching (V13.3) (Z87.898) History of sprain of ankle (V13.59) (Z87.828) History of urinary tract infection (V13.02) (Z87.440) History of viral infection (V12.09) (Z86.19) 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 surgery to repair muscle tear History of Extensive Excision Of Nasal Polyps History of Nasal Septal Deviation Repair History of Surgery For Relief Of Elevated Intraocular Pressure Family History Family history of hypertension (V17.49) (Z82.49) Family history of alcoholism (V17.0) (Z81.1) Family history of hypertension (V17.49) (Z82.49) Family history of cardiac disorder (V17.49) (Z82.49) Family history of lung cancer (V16.1) (Z80.1) Social History Former smoker (V1.82) (Z87.891) Quit 2016. 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 Allergies Penicillins Anaphylaxis;; Updated By: Joan Sanchez; 04/11/2017 8:45:15 AM Sulfa Drugs Anaphylaxis;; Updated By: Joan Sanchez; 04/11/2017 8:45:15 AM Current Meds Alavert Allergy/Sinus 5-120 MG Oral Tablet Extended Release 12 Hour; TAKE 1 TABLET BY MOUTH EVERY 12 HOURS NEEDED; Therapy: 23Cbl2824 to (Evaluate:70Tbp3741) Requested for: 37Zsu4967; Last Rx:[id number] Ordered Rx By: Khushbu Farfan; Dispense: 30 Days ; #:60 TAB; Refill: 2;For: Allergic rhinitis, seasonal; VENU = N; Verified Transmission to [facility] #0229; Last Updated By: BasisCode; 05/06/2018 3:19:05 PM Fluticasone Propionate 50 MCG/ACT Nasal Suspension; USE 2 SPRAYS IN EACH NOSTRIL ONCE DAILY; Therapy: 29Brg3793 to (Evaluate:29Nov2018) Requested for: 02Jun2018; Last Rx:02Jun2018 Ordered Rx By: Khushbu Farfan; Dispense: 30 Days ; #:16 GM; Refill: 5;For: Allergic rhinitis, seasonal; VENU = N; Verified Transmission to [facility] #0229; Last Updated By: BasisCode; 06/02/2018 5:45:27 PM Montelukast Sodium 10 MG Oral Tablet; TAKE 1 TABLET DAILY DIRECTED; Therapy: 04Dgs8208 to (Evaluate:23Pto2218) Requested for: 49Fzs3091; Last Rx:[id number] Ordered Rx By: Natalya Soni; Dispense: 30 Days ; #:30 Tablet; Refill: 5;For: Allergic rhinitis, seasonal; VENU = N; Verified Transmission to [facility] #0229; Last Updated By: BasisCode; 04/16/2018 11:34:49 AM Omeprazole 40 MG Oral Capsule Delayed Release; TAKE ONE CAPSULE BY MOUTH EVERY DAY; Therapy: 11Apr2017 to (Evaluate:67Mfl1006) Requested for: 31Mys9029; Last Rx:[id number] Ordered Rx By: Julieth Dawson; Dispense: 30 Days ; #:30 Capsule; Refill: 6;For: GERD (gastroesophageal reflux disease); VENU = N; Verified Transmission to [facility] #Izabel; Last Updated By: BasisCode; 10/18/2017 4:07:41 PM Vol-Plus 27-1 MG Oral Tablet; TAKE ONE TABLET BY MOUTH DAILY; Therapy: 27Sep2016 to (Evaluate:26Jul2019) Requested for: 31Jul2018; Last Rx:[id number] Ordered Rx By: Khushbu Farfan; Dispense: 30 Days ; #:30 Tablet; Refill: 11;For: Health Maintenance; VENU = N; Verified Transmission to [facility] #Izabel; Last Updated By: BasisCode; 07/31/2018 8:38:27 AM Naproxen 500 MG Oral Tablet; TAKE 1 TABLET EVERY 12 HOURS NEEDED; Therapy: 29Kvf2214 to (Last Rx:[id number]) Requested for: 56Sea8038 Ordered Rx By: Natalya Soni; Dispense: 0 Days ; #:60 Tablet; Refill: 2;For: JRA (juvenile rheumatoid arthritis); VENU = N; Verified Transmission to [facility] #Charles9; Last Updated By: BasisCode; 04/16/2018 11:34:51 AM Maxalt 10 MG Oral Tablet; TAKE 1 TABLET AT ONSET OF HEADACHE. MAY REPEAT EVERY 2 HOURS NEEDED. MAXIMUM 3 TABLETS IN 24 HOURS; Therapy: 52Vqv8715 to Recorded Dispense: 0 Days ; #:9 Tablet; Refill: 5; VENU = N; Record; Last Updated By: Sho Ramirez; 04/25/2018 2:30:44 PM Vitals Vital Signs Recorded: 10Sep2018 01:07PM Svzhfvtahpi04.3 F, Oral Heart Rate74 Niugeqzn775, LUE, Sitting Odlqiyybu41, LUE, Sitting Blood Pressure Cuff SizeAdult Vrsglx717 lb BMI Ftulkqcgjb76.37 BSA Calculated1.95 O2 Wtmgcycytr47 Physical Exam Constitutional General appearance: Alert and in no acute distress. Ears, Nose, Mouth, and Throat Hearing: Normal. Pulmonary Respiratory assessment: No respiratory distress, normal respiratory rhythm and effort. Cardiovascular Exam for edema: No peripheral edema. Lymphatic Palpation of lymph nodes in neck: No cervical lymphadenopathy. Musculoskeletal Examination of gait: Normal. Inspection of digits and nails: No clubbing or cyanosis of the fingernails. Inspection/palpation of joints, bones and muscles: No joint swelling. Normal movement of all extremities. (L knee with suprapatellar swelling. Good ROM of knee without any lax ligaments on manipulation. R ankle with some limitation of motion). Appearance - no erythema, no ecchymosis, no amputations, no deformity, no asymmetry, no contractures and normal spinal curvature. Palpation - no increased warmth, no masses, no click and no crepitus. Range of Motion: Normal movement of all extremities. Assessment of Stability: Normal. Muscle strength/tone: Normal. Skin Skin and subcutaneous tissue: Abnormal. numerous tattoos. Psychiatric Judgment and insight: Intact. Orientation: Oriented to person, place, and time. Recent and remote memory: Normal. Mood and affect: Normal. Diagnoses/Problems Headache, migraine (346.90) (G43.909) Orders Start: Topiramate 25 MG Oral Capsule Sprinkle; TAKE 1 CAPSULE TWICE DAILY Rx By: Natalya Soni; Dispense: 30 Days ; #:60 Capsule; Refill: 3;For: Headache, migraine; VENU = N; Verified Transmission to [facility] [id number]; Last Updated By: [facility]; 09/10/2018 1:25:54 PM Provider Impressions The patient's labs, radiology images and reports, and other tests since previous appointment were obtained, reviewed, and summarized as applicable from the physician portal, electronic medical records systems and/or outside sources. Pertinent positive and negative findings were considered in medical decision making. All questions were answered and the patient was counseled regarding the diagnosis, prognosis, risk and benefits of the various treatment options and the importance of compliance with therapy. Patient Discussion/Summary Migraines will start topamax. Pt to follow up with neurology off work slip done follow up as needed Patient Education Homegoing instructions As always, a healthy lifestyle helps chronic diseases. Eat a balanced diet, exercise at least 30 minutes a day/5 days a week and be up to date on screening health exams. Signatures Electronically signed by : Natalya Soni MD; Sep 10 2018 6:48PM EST (Author) Normal [facility] URINE CULTURE,BACTERIALon URINE CULTURE,BACTERIAL PATIENT: SUSANA ROONEY LOCATION: [facility] BILL#: [id number] : 84 AGE: SEX: F ORDERED BY: KHUSHBU FARFAN SOURCE: URINE COLLECTED: 06/02/18 15:15 ANTIBIOTICS AT IGNACIO.: RECEIVED : 06/02/18 21:51 SITE: Clean Catch/Voided R E S U L T S URINE CULTURE,BACTERIAL FINAL 06/03/18 14:14 NO SIGNIFICANT GROWTH. Normal [facility] Comment on above: Performed By: #### U RINC #### [facility] [address] [place] [id number] HEPATITIS B SURF ABon 2017 HEP B SURF AB < 3.1 Normal <10 [facility] Comment on above: Result Comment: INTE RPRETIVE CRITERIA: <10 mIU/mL....NONREACTIVE >=10 mIU/mL...REACTIVE . Patients receiving more than 5 mg/day of biotin may have interference in test results. A sample should be taken no sooner than eight hours after previous dose. Contact [phone] for additional information. Performed By: #### H BAB3 #### [facility] [address] [place] [address] MUMPS IGG ANTIBODYon 018 MUMPS IGG ANTIBODY Positive Normal [facility] Comment on above: Result Comment: INTE RPRETATIVE COMMENT NEGATIVE: No IgG antibodies specific to Mumps detected. It is likely that the patient has not had a previous exposure to Mumps through infection or vaccination. Alternatively, the patient may have been exposed to Mumps but a failure to respond may indicate immunodeficiency. EQUIVOCAL:Equivocal results; obtain additional sample for retesting. POSITIVE: IgG antibody to Mumps detected. This may indicate that the patient was exposed to Mumps through infection or vaccination. The interpretation of serological tests should take into account the immunological status of the patient. Test results for patients, including immunocompromised patients, neonates, and pediatric patients, reflect their capacity to respond immunologically to the virus as well as their exposure to the pathogen. Patients treated with IVIG may demonstrate altered results in serological assays. Performed By: #### M UMPG #### [facility] [address] [place] [address] RUBELLA IGG ABon 11-19-2017 RUBELLA IGG AB 149.0 IU/ML Normal [facility] Comment on above: Result Comment: REF VALUES NON-IMMUNE: < 5 EQUIVOCAL: 5-9 IMMUNE: >=10 Performed By: #### R UBIG #### [facility] [address] [place] [address] RUBEOLA IGG ABon 11-19-2017 RUBEOLA IGG AB Positive Normal [facility] Comment on above: Result Comment: INTE RPRETATIVE COMMENT NEGATIVE: No IgG antibodies specific to Measles detected. It is likely that the patient has not had a previous exposure to Measles through infection or vaccination. Alternatively, the patient may have been exposed to Measles but a failure to respond may indicate immunodeficiency. EQUIVOCAL:Equivocal results; obtain additional sample for retesting. POSITIVE: IgG antibody to Measles detected. This may indicate that the patient was exposed to Measles through infection or vaccination. The interpretation of serological tests should take into account the immunological status of the patient. Test results for patients, including immunocompromised patients, neonates, and pediatric patients, reflect their capacity to respond immunologically to the virus as well as their exposure to the pathogen. Patients treated with IVIG may demonstrate altered results in serological assays. Performed By: #### R UBEG #### [facility] [address] [place] [address] VARICELLA ZOSTER IGG ABon VARICELLA ZOSTER IGG AB Negative Normal NEGATIVE [facility] Comment on above: Result Comment: INTE RPRETATIVE COMMENT NEGATIVE: No IgG antibodies specific to VZV detected. It is likely that the patient has not had a previous exposure to VZV through infection or vaccination. Alternatively, the patient may have been exposed to VZV but a failure to respond may indicate immunodeficiency. EQUIVOCAL:Equivocal results; obtain additional sample for retesting. POSITIVE: IgG antibody to VZV detected. This may indicate that the patient was exposed to VZV through infection or vaccination. The interpretation of serological tests should take into account the immunological status of the patient. Test results for patients, including immunocompromised patients, neonates, and pediatric patients, reflect their capacity to respond immunologically to the virus as well as their exposure to the pathogen. Patients treated with IVIG may demonstrate altered results in serological assays. Performed By: #### V ARZG #### [facility] [address] [place] [address] Gastointestinal Endoscopyon 06-26-2017 Gastointestinal Endoscopy [facility] Patient: SUSANA ROONEY [address] MR#: [id number] [place] [address] : [address] Melquiades Gupta MD Dept: Diagnostic Loc: ENDO Gastrointestinal Endoscopy Service Dt: 06/26/17 Report#: [id number] Adm Dt: 06/26/17 Dis Dt: GASTROINTESTINAL ENDOSCOPY REPORT ENDOSCOPIST: Melquiades Gupta M.D. TAIL RIPPER: INDICATIONS: The patient has been having abdominal distress, heartburn, previous history of black stools and taking a large amount of NSAIDs for a long period of time in the background of juvenile rheumatoid arthritis. POSTENDOSCOPIC DIAGNOSES: 1. No active ulcerations noted anywhere. 2. Hiatal hernia around 35 cm. No Coy's esophagus noted. Possibly an early Schatzki's ring, which was not biopsied. This could be indicative of gastroesophageal reflux. NAME OF PROCEDURE: Esophagogastroduodenoscopy with biopsy of the antrum. ANESTHESIA: Versed 2 mg, 2 mL of Sublimaze, and 25 mg of Benadryl given IV. PROCEDURE: This procedure was done in the GI Endoscopy Room at [facility] with all available resuscitative measures in working condition. Specifically, it was made sure that an IV was kept open and that 2 suctions were available. It was also made sure that an adequate fitting Ambu bag and airway were available. It was also made sure that oxygen was running and Narcan was drawn up in a syringe. The patient's blood pressure was monitored continuously and the O2 saturation continuously determined by a digital oximeter. At no time was the O2 saturation allowed to drop below 85%. Nasal O2 was used on a p.r.n. basis. PROCEDURE: After adequate sedation, the Olympus scope was introduced and passed beyond the cricopharyngeus and whole of the esophagus, stomach, antrum, duodenal bulb was very carefully visualized. I saw no evidence of any serious esophagitis or Coy's esophagus. The Z line was seen at 35 cm. Retroflexion showed no serious abnormality except for a small hiatal hernia. The anterior and retrograde examination of the stomach was normal. I did multiple biopsies of the antrum to make absolutely certain this patient has no Helicobacter pylori and sent for histopathology evaluation. Peristalsis was normal. The duodenal bulb was normal. Second portion was normal. RECOMMENDATIONS: The patient should continue the omeprazole 40 mg as before. Jen Martin#: [id number] C#: [id number] 07/03/17 1030 Normal [facility] Vital Signs Date Time Vital Sign Value Performing Clinician Facility 11-11-2024 14:030400 Body height 170.2 cm Latoya ALFONSO Work Phone: [facility] 11-11-2024 14:03-0400 Body mass index (BMI) [Ratio] 28.66 kg/m2 Latoya ALFONSO Work Phone: [facility] 11-11-2024 14:03-0400 Body weight 83.01 kg Latoya ALFONSO Work Phone: [facility] 11-11-2024 14:03-0400 Diastolic blood pressure 84 mm[Hg] Latoya ALFONSO Work Phone: [facility] 11-11-2024 14:03-0400 Heart rate 79 /min Latoya ALFONSO Work Phone: [facility] 11-11-2024 14:03-0400 Respiratory rate 16 /min Latoya ALFONSO Work Phone: [facility] 11-11-2024 14:03-0400 SaO2% (BldA) [Mass fraction] 97 % Latoya ALFONSO Work Phone: [facility] 11-11-2024 14:03-0400 Systolic blood pressure 128 mm[Hg] Latoya ALFONSO Work Phone: [facility] 10-20-2024 12:00-0500 Body height 172.72 cm Nunu Camacho DNP Work Phone: [facility] 10-20-2024 12:00-0500 Body temperature 97.9 [degF] Nunu Camacho DNP Work Phone: [facility] 10-20-2024 12:00-0500 Body weight 81.25 kg Nunu Janice DNP Work Phone: [facility] 10-20-2024 12:00-0500 Diastolic blood pressure 82 mm[Hg] Nunu Janice DNP Work Phone: [facility] 10-20-2024 12:00-0500 Heart rate 89 /min Nunu Janice DNP Work Phone: [facility] 10-20-2024 12:00-0500 Respiratory rate 16 /min Nunu Janice DNP Work Phone: [facility] 10-20-2024 12:00-0500 SaO2% (BldA) [Mass fraction] 100 % Nunu Janice DNP Work Phone: [facility] 10-20-2024 12:00-0500 Systolic blood pressure 131 mm[Hg] Nunu Camacho DNP Work Phone: [facility] 10-10-2022 15:00-0500 Body height 172.72 cm Nunu Camacho Other [employer] [employer] Other 10-10-2022 15:00-0500 Body mass index (BMI) [Ratio] 24.78 kg/m2 Nunu Camacho Other [facility] Other 10-10-2022 15:00-0500 Body weight 73.94 kg Nunu Janice Other [facility] Other 10-10-2022 15:00-0500 Diastolic blood pressure 72 mm[Hg] Nunu Camacho Other [facility] Other 10-10-2022 15:00-0500 Respiratory rate 16 /min Nunu Camacho Other [facility] Other 10-10-2022 15:00-0500 SaO2% (BldA) [Mass fraction] 99 % Nunu Camacho Other [facility] Other 10-10-2022 15:00-0500 Systolic blood pressure 122 mm[Hg] Nunu Camacho Other [facility] Other 09-04-2022 12:30-0500 Body height 172.72 cm Nunu Camacho Other [facility] Other 09-04-2022 12:30-0500 Body mass index (BMI) [Ratio] 24.83 kg/m2 Nunu Camacho Other [facility] Other 09-04-2022 12:30-0500 Body temperature 96.8 [degF] Nunu Camacho Other [facility] Other 09-04-2022 12:30-0500 Body weight 74.07 kg Nunu Camacho Other [facility] Other 09-04-2022 12:30-0500 Diastolic blood pressure 80 mm[Hg] Nunu Camacho Other [facility] Other 09-04-2022 12:30-0500 Respiratory rate 18 /min Nunu Camacho Other [facility] Other 09-04-2022 12:30-0500 SaO2% (BldA) [Mass fraction] 99 % Nunu Camacho Other [facility] Other 09-04-2022 12:30-0500 Systolic blood pressure 120 mm[Hg] Nunu Camacho Other [facility] Other 07-23-2022 11:15-0500 Body height 172.72 cm Nunu Janice Other [facility] Other 07-23-2022 11:15-0500 Body mass index (BMI) [Ratio] 24.92 kg/m2 Nunu Janice Other [facility] Other 07-23-2022 11:15-0500 Body temperature 97.4 [degF] Nunu Camacho Other [facility] Other 07-23-2022 11:15-0500 Body weight 74.35 kg Nunu Camacho Other [facility] Other 07-23-2022 11:15-0500 Diastolic blood pressure 80 mm[Hg] Nunu Camacho Other [facility] Other 07-23-2022 11:15-0500 Respiratory rate 18 /min Nunu Camacho Other [facility] Other 07-23-2022 11:15-0500 SaO2% (BldA) [Mass fraction] 97 % Nunu Camacho Other [facility] [employer] Other 07-23-2022 11:15-0500 Systolic blood pressure 118 mm[Hg] Nunu Camacho Other [employer] [employer] Other 04-02-2022 02:42-0400 Diastolic blood pressure 70 mm[Hg] DNP Nunu Rivasle Work Phone: [facility] 04-02-2022 02:42-0400 Heart rate 70 /min DNP Nunu Rivasle Work Phone: [facility] 04-02-2022 02:42-0400 Respiratory rate 20 /min DNP Nunu Kaple Work Phone: [facility] 04-02-2022 02:42-0400 SaO2% (BldA) [Mass fraction] 98 % DNP Nunu Camacho Work Phone: [facility] 04-02-2022 02:42-0400 Systolic blood pressure 136 mm[Hg] DNP Nunu Rivasle Work Phone: [facility] 04-01-2022 23:11-0400 Body height 172.72 cm DNP Nunu Rivasle Work Phone: [facility] 04-01-2022 23:11-0400 Body temperature 98.1 [degF] DNP Nunu Rivasle Work Phone: [facility] 04-01-2022 23:11-0400 Body weight 86.18 kg DNP Nunu Kaple Work Phone: [facility] 11-16-2021 11:00-0400 Body height 172.72 cm Nunu Kapdionte Other [facility] [employer] Other 11-16-2021 11:00-0400 Body mass index (BMI) [Ratio] 28.84 kg/m2 Nunu Janice Other [facility] Other 11-16-2021 11:00-0400 Body temperature 96.5 [degF] Nunu Janice Other [facility] Other 11-16-2021 11:00-0400 Body weight 86.05 kg Nunu Janice Other [facility] Other 11-16-2021 11:00-0400 Diastolic blood pressure 80 mm[Hg] Nunu Janice Other [facility] Other 11-16-2021 11:00-0400 Respiratory rate 18 /min Nunu Janice Other [facility] Other 11-16-2021 11:00-0400 SaO2% (BldA) [Mass fraction] 99 % Nunu Kapdionte Other [facility] Other 11-16-2021 11:00-0400 Systolic blood pressure 120 mm[Hg] Nunu Janice Other [facility] Other 07-26-2021 14:45-0500 Body height 172.72 cm Nunu Camacho Other [facility] Other 07-26-2021 14:45-0500 Body mass index (BMI) [Ratio] 29.72 kg/m2 Nunu Janice Other [facility] Other 07-26-2021 14:45-0500 Body temperature 97.3 [degF] Nunu Camacho Other [facility] Other 07-26-2021 14:45-0500 Body weight 88.68 kg Nunu Janice Other [facility] Other 07-26-2021 14:45-0500 Diastolic blood pressure 80 mm[Hg] Nunu Janice Other [facility] Other 07-26-2021 14:45-0500 Respiratory rate 18 /min Nunu Camacho Other [facility] Other 07-26-2021 14:45-0500 SaO2% (BldA) [Mass fraction] 99 % Nunu Janice Other [facility] Other 07-26-2021 14:45-0500 Systolic blood pressure 128 mm[Hg] Nunu Camacho Other [facility] Other 08-10-2019 17:04-0500 BMI (Body Mass Index) 30.4 kg/m2 Natalya Soni [facility] Work Phone: 08-10-2019 17:04-0500 Body Temperature 98.1 [degF] [facility] Work Phone: 08-10-2019 17:04-0500 Body weight 89.36 kg [facility] Work Phone: 08-10-2019 17:04-0500 BP Diastolic 80 mm[Hg] [facility] Work Phone: 08-10-2019 17:04-0500 BP Systolic 100 mm[Hg] [facility] Work Phone: 08-10-2019 17:04-0500 BSA (Body Surface Area) 2.02 m2 Natalya Soni [facility] Work Phone: 08-10-2019 17:04-0500 Pulse (Heart Rate) 88 /min [facility] Work Phone: 08-10-2019 17:04-0500 Pulse Oximetry 99 % [facility] Work Phone: Comment on above: Source: 06-29-2019 16:25-0400 BMI (Body Mass Index) 30.01 kg/m2 Natalya Soni [facility] Work Phone: 06-29-2019 16:25-0400 Body weight 88.23 kg [facility] Work Phone: 06-29-2019 16:25-0400 BP Diastolic 68 mm[Hg] [facility] Work Phone: 06-29-2019 16:25-0400 BP Systolic 112 mm[Hg] [facility] Work Phone: 06-29-2019 16:25-0400 BSA (Body Surface Area) 2.01 m2 Natalya Soni [facility] Work Phone: 06-29-2019 16:25-0400 Height 171.45 cm [facility] Work Phone: 06-29-2019 16:25-0400 Pulse (Heart Rate) 96 /min [facility] Work Phone: Encounters Encounter Date Encounter Type Care Provider Facility Start: 11-11-2024 End: 11-11-2024 Armandoboo flowsheet Latoya ALFONSO Work Phone: [facility] Start: 11-11-2024 End: 11-11-2024 Bamboo flowsheet Latoya ALFONSO Work Phone: [facility] Start: 11-11-2024 End: 11-11-2024 Office outpatient visit 25 minutes Latoya Franco PA Work Phone: [facility] Comment on above: Cervicogenic migrain e (CMS/HCC) (Primary Dx) Start: 10-20-2024 End: 10-20-2024 Emergency department patient visit Nunu Camacho DNP Work Phone: [facility] Work Phone: Start: 06-29-2024 End: 06-29-2024 Telephone encounter Fernanda WISDOMLeo [place] [address] Start: 01-22-2024 End: 01-22-2024 ambulatory BRICE ALLISON Not Available Start: 12-03-2023 End: 12-04-2023 ambulatory BRICE ALLISON Not Available Start: 11-25-2023 End: 11-25-2023 ambulatory VERA TADEO Not Available Start: 10-23-2023 ambulatory Shruthi Hobbs Work Phone: [facility] [place] Start: 09-22-2023 Letter encounter Obzena Robyn DO Work Phone: [facility] Start: 07-04-2023 Telephone encounter Nunu [facility] [place] Start: 07-04-2023 End: 07-04-2023 ambulatory CYNDIE DELGADO Facility:[facility] Start: 07-01-2023 Refill Cyndie Schmid er 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 [place] Start: 12-22-2022 Letter encounter Bozena Carlson DO Work Phone: [facility] Start: 11-07-2022 ambulatory Shruthi Hobbs Work Phone: [facility] [place] Start: 11-06-2022 End: 11-06-2022 ambulatory DNP Nunu Janice Work Phone: [facility] Work Phone: Start: 11-06-2022 End: 11-06-2022 Discharged Recurring DNP Nunu Janice Work Phone: [facility] [place] Start: 10-10-2022 End: 10-10-2022 ambulatory Nunu Camacho Other [facility] Other Start: 10-10-2022 Office outpatient vi sit 25 minutes Nunu Camacho [facility] [place] Start: 09-23-2022 Letter encounter Bozena Carlson DO Work Phone: [facility] Start: 09-08-2022 End: 09-08-[address] DOCTOR FLETCHER Facility: Start: 09-04-2022 End: 09-04-2022 ambulatory Nunu Camacho Other [facility] Other Start: 09-04-2022 Office outpatient vi sit 25 minutes Nunu Camacho [facility] [place] Start: 07-23-2022 End: 07-23-2022 ambulatory Nunu Camacho Other [facility] Other Start: 07-23-2022 Office outpatient vi sit 25 minutes Nunu Camacho [facility] [place] Start: 07-13-2022 End: 07-13-2022 ambulatory Nunu Camacho Other [facility] Other Start: 07-13-2022 Telephone encounter Nunu [facility] Start: 07-10-2022 End: 07-10-2022 ambulatory Nunu Camacho Other [facility] Other Start: 07-10-2022 Office outpatient vi sit 15 minutes Nunu Camacho [facility] [place] Start: 06-11-2022 End: 06-11-2022 ambulatory Cyndie Harden Juliana RETAIL TEAM MEMBER.DIRECTOR OF MANAGED SERVICES Work Phone: Neurology Comment on above: Migraine without aur a and without status migrainosus, not intractable (Primary Dx) Start: 06-11-2022 End: 06-11-2022 Telemedicine consultation with patient Cyndie Poseyler RETAIL TEAM MEMBER.DIRECTOR OF MANAGED SERVICES Work Phone: [facility] [place] Start: 05-03-2022 Refill Cyndie J Stiffl er RETAIL TEAM MEMBER.DIRECTOR OF MANAGED SERVICES Work Phone: Neurology Comment on above: Refill Request Start: 04-03-2022 End: 04-03-2022 ambulatory uNnu Camacho Other [facility] Other Start: 04-03-2022 Telephone encounter Nunu Neil [facility] [place] Start: 04-01-2022 End: 04-02-2022 Emergency department patient visit DNP Nunu Camacho Work Phone: [facility] Start: 02-14-2022 Refill Cyndie Harden [place] RETAIL TEAM MEMBER.DIRECTOR OF MANAGED SERVICES Work Phone: Neurology Comment on above: Refill Request Start: 02-13-2022 End: 02-13-2022 ambulatory Nunu Camacho Other [facility] Other Start: 02-13-2022 Telephone encounter Nunu Neil [facility] [place] Start: 02-12-2022 Nurse Triage Abby escoto LPN NURSE [facility]ARN[facility] BRUSHER Comment on above: Refill Request Start: 11-16-2021 End: 11-16-2021 ambulatory Nunu Camacho Other [facility] Other Start: 11-16-2021 Office outpatient vi sit 25 minutes Nunu Camacho [facility] [place] Start: 07-26-2021 End: 07-26-2021 ambulatory uNnu Camacho Other [facility] Other Start: 07-26-2021 Office outpatient vi sit 25 minutes Nunu Camacho [facility] [place] Start: 08-10-2019 Patient encounter procedure Natalya Soni [facility] Work Phone: Start: 06-29-2019 Patient encounter procedure Natalya Soni [facility] Work Phone: Start: 12-19-2018 [facility]: Start: 12-19-2018 End: 12-20-2018 Patient encounter procedure SHWETA NAVA Facility:[id number] Start: 12-16-2018 End: 12-16-2018 Emergency department patient visit TAMMY ORTIZBILL Facility:[id number] Start: 11-13-2018 Patient encounter procedure Nunu [place] Facility:[id number] Start: 11-06-2018 [facility] Work [facility]: Start: 10-02-2018 Patient encounter procedure Nunu [place] Facility:[id number] Start: 09-17-2018 Patient encounter procedure Nunu aBy Facility:[id number] Start: 09-10-2018 [facility] procedure [facility]: Start: 07-07-2018 Patient encounter procedure [facility]: Start: 06-02-2018 Patient encounter procedure [facility] Work [facility]: Start: 04-25-2018 Patient encounter procedure [facility] Galindoynski [facility] Work [facility]: Start: 04-16-2018 Patient encounter procedure NATALYA ZACHARIAH Facility:[id number] Start: 02-26-2018 End: 02-26-2018 ambulatory LISA MILLER Facility:[facility] Start: 02-10-2018 Patient encounter procedure JULIETH WEAVER Facility:[id number] Start: 01-23-2018 Patient encounter procedure [facility]d [facility]: Start: 12-26-2017 Patient encounter procedure [facility] Zach[facility]h [facility]: Start: 12-25-2017 End: 12-25-2017 Emergency department patient visit MARCELLO MONGE Facility:[id number] Start: 12-23-2017 Patient encounter procedure [facility]: Start: 11-28-2017 Patient encounter procedure [facility] Zach[facility]h [facility]: Start: 11-18-2017 Patient encounter procedure [facility]: Start: 11-14-2017 Patient encounter procedure [facility]: Start: 10-24-2017 Patient encounter procedure [facility] Work [facility]: Start: 09-12-2017 Patient encounter procedure [facility]h [facility] Work [facility]: Start: 07-29-2017 Patient encounter procedure [facility] Work [facility]: Start: 07-11-2017 Patient encounter procedure [facility] Work [facility]: Start: 06-26-2017 Ambulatory Melquiades Gupta Facility:[facility] Procedures Date Procedure Procedure Detail Performing Clinician Start: 10-09-2022 Microscopic observat ion [Identifier] in Cervix by Cyto stain Fernanda Carmona MA Start: 04-01-2022 Radiologic examinati on of knee DNP Nunu Robdionte Work Phone: Start: 09-10-2020 Adult depression scr eening assessment Abbytip Orozcotigist RAMOS Start: 10-08-2019 Antibody screen Comment on above: Performed By: #### P REDEL #### [place] [address] Start: 08-13-2019 Follow-up visit Start: 07-15-2019 Follow-up visit Start: 12-19-2018 Follow-up visit Start: 11-13-2018 Follow-up visit Start: 11-06-2018 Follow-up visit Start: 10-02-2018 Follow-up visit Start: 09-18-2018 Follow-up visit Start: 02-26-2018 Unlisted chemistry procedure LISA ANGELA Start: 11-08-2017 Microscopic observat ion [Identifier] in Cervix by Cyto stain Bozena Carlson DO Work Phone: Cataract surgery Natalya odonnell History of Colposcopy Natalya Soni History of Elbow Surgery Kate Soni History of Extensive Excision Of Nasal Polyps Natalya Soni History of Nasal Sep davida Deviation Repair Natalya Soni History of Surgery F or Relief Of Elevated Intraocular Pressure Natalya Soni Plan of Treatment Date Care Activity Detail Author Start: 2032 Shingles (RZV) Vacci ne (1 of 2) Shingles (RZV) Vaccine (1 of 2) [facility] Start: 08-24-2029 Tetanus vaccination Tetanus (T d or Tdap) Booster [facility] Start: 08-24-2029 Urine microalbumin profile [facility] Start: 10-09-2025 Screening for malign ant neoplasm of cervix [facility] Start: 11-15-2024 HPV TESTING HPV TESTING [facility] Start: 11-15-2024 PAP TESTING PAP TESTING [facility] Start: 11-15-2024 Screening for malign ant neoplasm of cervix [facility] Start: 11-11-2024 End: 11-11-2024 Patient encounter procedure 11/11/2024 2:00 PM EDT Office Visit [facility] [address] [place] [id number] Latoya Franco PA [address] [place] [address] Arrived [facility] Comment on above: Arrived Start: 05-03-2024 Influenza vaccination Influenza Vacc ine (#1) [facility] Start: 09-02-2023 Depression Assessment Depression Ass essment [facility] Start: 05-03-2023 Covid-19 Vaccine ( season) Covid-19 Vaccine () [facility] Start: 05-03-2023 Influenza vaccination Influenza Vacc ine (#1) [facility] Start: 2022 Mammography [facility] Start: 2022 Screening for malign ant neoplasm of breast [facility] Start: 09-02-2022 DEPRESSION ASSESSMENT [facility] Start: 06-02-2022 Influenza vaccination Influenza Vacc ine (#1) [facility] Start: 05-03-2022 Influenza vaccination C [facility] Start: 12-02-2021 ANNUAL PCP TEAM CAR SCRUBBER NERI DISEASE VISIT ANNUAL PCP TEAM CHRONIC DISEASE VISIT [facility] Start: 09-10-2021 Adult depression screening assessment DEPRESSION SCREENING [facility] Start: 09-02-2021 DEPRESSION ASSESSMENT DEPRESSION ASS [facility] Start: 06-14-2021 COVID-19 VACCINE (3 - Booster for Pfizer series) COVID-19 VACCINE (3 - Booster for Pfizer series) [facility] Start: 03-09-2021 COVID-19 VACCINE (3 - Booster for Pfizer series) COVID-19 VACCINE (3 - Booster for Pfizer series) [facility] Start: 11-08-2020 Screening for malign ant neoplasm of cervix Pap Smear [facility] Start: 12-26-2017 Hepatitis B vaccination Hepati tis B (HBV) Vaccine (2 of 3 - 19+ 3-dose series) [facility] Start: 12-26-2017 Hepatitis B Vaccine (2 of 3 - 19+ 3-dose series) Hepatitis B Vaccine (2 of 3 - 19+ 3-dose series) [facility] Start: 2000 BP CONTROLLED (<130/80) BP CON TROLLED (<130/80) [facility] Start: 2000 HEPATITIS C SCREENING HEPATITIS C [facility] Start: 2000 Hepatitis C screening Hepatitis C [facility] Start: 1982 HEPATITIS B (1 of 3 - 3-dose series) HEPATITIS B (1 of 3 - 3-dose series) [facility] Start: 1982 Hepatitis B Vaccine (1 of 3 - 3-dose series) Hepatitis B Vaccine (1 of 3 - 3-dose series) [facility] End: 12-07-2023 KINGSLEY SCREENING KINGSLEY SCREENING Radiology Routine Encounter for screening mammogram for breast cancer 1 Occurrences starting 11/07/2022 until 12/07/2023 [facility] Work Phone: Comment on above: 1 Occurrences starti ng 11/07/2022 until 12/07/2023 End: 11-21-2024 MG Breast Screening KINGSLEY SCREENING Radiology Routine Encounter for screening mammogram for breast cancer 1 Occurrences starting 10/23/2023 until 11/21/2024 [facility] Work Phone: Comment on above: 1 Occurrences starti ng 10/23/2023 until 11/21/2024 Patient Education Paresthesia (D C) Bursitis ED [facility] Work Phone: Patient referral [facility] Work Phone: [facility] Immunizations Immunization Date Immunization Notes Care Provider [facility] 07-04-2022 influenza virus vaccine, unspecified formulation Shruthi Gonzalez MD Work Phone: [facility] 06-18-2022 influenza, seasonal, injectable Nunu Camacho Other [facility] 01-12-2021 Pfizer (12+ yrs) SARS-COV-2 (COVID-19) vaccine, mRNA, spike protein, LNP, pres. free, 30 mcg/0.3mL dose (FUG=286) Bozena Carlson DO Work Phone: [facility] 12-16-2020 Pfizer (12+ yrs) SARS-COV-2 (COVID-19) vaccine, mRNA, spike protein, LNP, pres. free, 30 mcg/0.3mL dose (ZEB=235) Bozena Carlson DO Work Phone: [facility] 10-31-2020 influenza, seasonal, injectable Nunu Camacho Other [facility] 10-31-2020 influenza virus vaccine, unspecified formulation Cyndie Delgado APRN.DIRECTOR OF MANAGED SERVICES Work Phone: [facility] 07-14-2020 Human Papillomavirus 9-valent vaccine Abby Priggins [facility] 05-27-2020 influenza, injectabl e, quadrivalent, contains preservative Abby Priggins [facility] 05-27-2020 influenza virus vaccine, unspecified formulation Bozena Carlson DO Work Phone: [facility] 03-11-2020 Human Papillomavirus 9-valent vaccine Abby Priggins [facility] 01-08-2020 Human Papillomavirus 9-valent vaccine Abby Priggins [facility] 08-24-2019 tetanus toxoid, redu janak diphtheria toxoid, and acellular pertussis vaccine, adsorbed Abby Priggins [facility] 07-07-2018 influenza, injectabl e, quadrivalent, preservative free; Translations: [Fluzone Quadrivalent 0.5 ML Intramuscular Suspension] Natalya Soni [facility] Work Phone: 11-28-2017 hepatitis B vaccine, adult dosage Bozena Carlson DO Work Phone: [facility] 11-28-2017 tuberculin skin test ; purified protein derivative solution, intradermal Bozena Carlson DO Work Phone: [facility] 11-28-2017 varicella virus vaccine Akil Carlson DO Work Phone: [facility] 11-18-2017 tuberculin skin test ; purified protein derivative solution, intradermal Bozena Joshiase DO Work Phone: [facility] 02-18-2017 tuberculin skin test ; purified protein derivative solution, intradermal Bozena Robyn DO Work Phone: [facility] 02-05-2017 tuberculin skin test ; purified protein derivative solution, intradermal Bozena Carlson DO Work Phone: [facility] Work Phone: 07-03-2016 influenza, seasonal, injectable Bozena Joshiase DO Work Phone: [facility] 08-05-2014 influenza, seasonal, injectable Bozena Robyn DO Work Phone: [facility] 04-27-2014 pneumococcal polysaccharide vaccine, 23 valent Bozena Carlson DO Work Phone: [facility] 04-27-2014 tetanus toxoid, redu janak diphtheria toxoid, and acellular pertussis vaccine, adsorbed Bozena Carlson DO Work Phone: [facility] 07-21-2013 influenza, seasonal, injectable Bozena Carlson DO Work Phone: [facility] Payers Date Payer Category Payer Self-pay [id number] 2023 Blue Cross Blue Shield [id number] 2023 Unknown [id number] 2022 Medicaid [id number] 2017 Medicaid [employer] [id number] 2017-Present [phone] [address] [place] [address] Medicaid [id number] 2010 Medicaid [id number] 2008 Unknown 1982 Unknown [id number]. 356 1982 Unknown [id number]. 356 1982 Unknown [id number]. 356 1982 Unknown [id number] [id number]. 159 1982 Unknown [id number] [id number]. 159 1982 Unknown [id number] [id number]. 732 1982 Unknown [id number] [id number]. 593 1982 Unknown [id number] 2.16.840.1.918590.3.579.2. 9 1982 Unknown [id number] [id number]. 1259 1982 Unknown [id number] [id number]. 1259 1982 Unknown [id number] [id number]. 1259 1959 Unknown [id number] Private Health Insurance [facility] [employer] [id number] Unknown [id number] 531 Social History Date Type Detail Facility Start: 03-12-2019 End: 12-15-2019 Tobacco smoking status NHIS Ex-smoker [facility] Start: 04-01-2022 End: 10-20-2024 History of tobacco use Current smoker [facility] Start: 11-01-1999 End: 02-26-2019 History of tobacco use Cigarette Smoker [facility] Start: 03-12-2019 End: 02-12-2023 Tobacco use and exposure Smokeless tobacco non-user [facility] Start: 12-02-2020 Alcohol intake Ex-drinker (finding) [facility] Start: 03-14-2018 History SDOH Alcohol Comment Infrequent [facility] Start: 06-08-2020 History SDOH Financial 4 [facility] Start: 03-12-2019 Tobacco Comment pt quit when s he found out she was , 8 weeks ago [facility] Start: 1980 Sex Assigned At Not on file C [facility] Start: 12-02-2020 End: 11-11-2024 Sex Assigned At [facility] Start: 1980 Sex Assigned At Female F [facility] Start: 11-01-1999 Tobacco smoking status CAIS Light tobacco smoker [facility] Work Phone: Start: 01-14-2018 End: 11-11-2024 Cigarettes smoked current (pack per day) - Reported 0.5 [facility] Start: 01-30-2018 Alcohol intake Current drinke r of alcohol (finding) [facility] Start: 08-01-2017 Tobacco Comment none [facility] How hard is it for you to pay for the very basics like food, housing, medical care, and heating Not very hard [facility] Adult Depression Screening Assessment 1 [facility] (I/We) worried whether (my/our) food would run out before (I/we) got money to buy more. DK or Refused [facility] Start: 02-12-2023 Tobacco smoking status CAIS Never smoked tobacco [facility] Start: 01-22-2024 End: 11-11-2024 Alcoholic beverage intake Lifetime non-drinker (finding) [facility] Start: 02-18-2023 Alcohol Comment caffeine intak e: 3-4 cups per day [facility] Start: 10-20-2024 Sex Female (finding) [facility] NEGATED: Highlighted row - - [facility] Work Phone: Medical Equipment Procedure Code Equipment Code Equipment Origin al Text Equipment Identifier Dates Eye P50 Expres Glaucoma Device [id number] - [id number] Start: 08-05-2017 Lens Posterior Chamber 19.5 Intraocular Sa60at Sa60at 19.5 - [id number] Start: 01-20-2018 Goals Date Patient Goal Desired Activity /State Personal health goal Comment on above: Formatting of this n ote might be different from the original. Lower cholesterol level Comment on above: Formatting of this n ote might be different from the original. Lower cholesterol level Functional Status Date Assessment Result Facility NEGATED: Highlighted row Functional performance Functional status health issues are not documented [facility] Work Phone: Mental Status Date Assessment Result Facility NEGATED: Highlighted row Cognitive function [Interpretation] Cognitive status health issues are not documented [facility] Work Phone: Clinical Notes 08-10-2019 to 11-11-2024 KADEN Cueva - 11/11/2024 2:00 PM EDTTelephone Encounter - Renetta Sher NP - 06/29/2024 6:10 PM EDTTelephone Encounter - Renetta Sher, CYNTHIA - 06/29/2024 6:10 PM EDT Note Date & Type Note Facility 11-11-2024 History of Presen t illness Narrative Images from the original note were not included. Subjective Susana Loyola is a 44 y.o. year old female Chief Complaint Patient presents with Migraine Past Medical History: Diagnosis Date Anxiety Bipolar 1 disorder (CMS/HCC) Cataract Depression ([facility]/HCC) GERD (gastroesophageal reflux disease) Glaucoma (CMS/HCC) HTN (hypertension) (CMS/HCC) Juvenile rheumatoid arthritis (CMS/HCC) Migraines (CMS/HCC) Seasonal allergies Past Surgical History: Procedure Laterality Date CARPAL TUNNEL RELEASE CATARACT EXTRACTION NASAL SEPTUM SURGERY deviated septum repair MT REPAIR TENDON/MUSCLE UPPER ARM/ELBOW EA TDN/MUSC Right VAGINAL DELIVERY x4 Family History Problem Relation Name Age of Onset Diabetes Mother Arthritis Mother Hypertension Mother Hypertension Father Social History Tobacco Use Smoking status: Never Smokeless tobacco: Never Substance Use Topics Alcohol use: Never Comment: caffeine intake: 3-4 cups per day Medication Documentation Review Audit Reviewed by Kimber Rivera MA (Web Production Artist) on 11/11/24 at 1409 Medication Order Taking? Sig Documenting Provider Last Dose Status copper (Paragard) IUD [id number] No Paragard Intrauterine Copper Historical Provider, Taking Active fluticasone (Flonase) 50 MCG/ACT nasal spray [id number] No 1 spray. Historical Provider, Taking Active loratadine (Claritin) 10 MG tablet [id number] No Take 10 mg by mouth in the morning. Historical Provider, Taking Active rizatriptan (Maxalt) 10 MG tablet [id number] Take 1 tablet (10 mg) by mouth 1 (one) time if needed for migraine May repeat in 2 hours if unresolved. Do not exceed 30 mg in 24 hours. KADEN Singh Active HPI MIGRAINES -on rizatriptan -migraines are triggered by weather change -migraines vary -located above the left eye -duration depends on how quick she takes her rizatriptan -denies any light or sound sensitivity -denies any nausea or vomiting -denies any visual changes -sleeping well at night -average 8-9 hours -does not always wake feeling rested ROS Review of Systems Constitutional: Negative. Respiratory: Negative. Cardiovascular: Negative. Gastrointestinal: Negative. Musculoskeletal: Negative. Neurological: Positive for headaches. Objective Visit Vitals BP 128/84 Pulse 79 Resp 16 Ht 5' 7 Wt 183 lb SpO2 97% BMI 28.66 kg/m Smoking Status Never BSA 1.98 m Neurological Exam Mental Status Awake, alert and oriented to person, place and time. Recent and remote memory are intact. Speech is normal. Language is fluent with no aphasia. Attention and concentration are normal. Fund of knowledge is appropriate for level of education. Cranial Nerves CN II: Visual acuity is normal. Visual keene full to confrontation. CN III, IV, : Extraocular movements intact bilaterally. Normal lids and orbits bilaterally. Pupils equal round and reactive to light bilaterally. CN V: Facial sensation is normal. CN VII: Full and symmetric facial movement. CN VIII: Hearing is normal. CN XI: Shoulder shrug strength is normal. Motor Normal muscle bulk throughout. Normal muscle tone. No abnormal involuntary movements. Gait Casual gait is normal including stance, stride, and arm swing. Motor Examination RUE Strength deltoid, biceps, triceps, wrist extensors, wrist extensors, wrist flexor, clock smith strength 5/5. LUE Strength deltoid, biceps, triceps, wrist extensors, wrist extensors, wrist flexor, clock smith strength 5/5. RLE Strength illopsoas, quadriceps, tibialis anterior, and gastrocnemius strength 5/5. LLE Strength illopsoas, quadriceps, tibialis anterior, and gastrocnemius strength 5/5. Tone Normal tone x4 extremities. Reflexes: RUE biceps reflex 1, brachioradialis reflex 1 LUE biceps reflex 1, brachioradialis reflex 1 RLE knee reflex 1, ankle reflex 1 LLE knee reflex 1, ankle reflex 1 Assessment and Plan Diagnoses and all orders for this visit: Cervicogenic migraine (CMS/HCC) 44-year-old female with medical history includes juvenile RA, glaucoma, cataracts, HTN and migraines. 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 She was been on amitriptyline which was not effective and made her feel off . She has been propranolol, verapamil, imitrex and topamax, zanaflex in the past for prevention. She also take ibuprofen 600mg as needed. Tizanidine makes her tired but seems to be helping with the headaches and she is no longer taking this. We can consider flexeril. The Rizatriptan works well for her. As she has tried and failed multiple medications and continues to use most of the rizatriptan prescription per month, we will try alternative preventative treatment. She may benefit from Qulipta. 1. MRI scan of the brain completed in August 2017 to evaluate for intracranial hypertension was nonacute. No findings consistent with ICH. No occlusive disease noted on MRA. 2. CT scan of the brain completed in April 2016 for headaches and left visual floaters was nonacute PLAN Trial Qulipta 60mg PO daily for migraine prevention therapy; I gave patient samples Continue rizatriptan for abortive therapy I counseled patient on medication side effects Consider occipital block pending course Consider botox referral Patient to follow up with this clinic in 4-6 months or sooner for new or worsening symptoms; I recommended sooner follow up and patient requests 6 months due to cost. I advised her to call should she need anything prior to her appointment. She verbalized understanding. documented in this encounter [facility] 06-29-2024 Telephone encounter Note She should continue to get it from his PCP if they have been prescribing the medication. I left a message as such. If they are not willing to fill it she is to let us know. [facility] Work Phone: 06-29-2024 Miscellaneous Notes She should continue to get it from his PCP if they have been prescribing the medication. I left a message as such. If they are not willing to fill it she is to let us know. Patient's , Kun, called and lm asking for rizatriptan refill. He states they currently due not have insurance and have had some financial issues. This is why they have not scheduled an appointment. Last seen on 09/25/2023. Looks like Dr Delgado has been filling this for the patient this year. Please advise on refill Wadet Turner documented in this encounter [facility] 06-29-2024 Telephone encounter Note Patient's , Kun, called and lm asking for rizatriptan refill. He states they currently due not have insurance and have had some financial issues. This is why they have not scheduled an appointment. Last seen on 09/25/2023. Looks like Dr Delgado has been filling this for the patient this year. Please advise on refill Wadet Turner [facility] 07-04-2023 Evaluation note Encounter Date Diagnosis Assessment Notes Jul, Migraine without status migrainosus, not intractable, unspecified migraine type (ICD-10 - G43.909) [facility] Other 11-02-2023 NoteHNO ID: [id number] Author: Vera Moura APRN.DIRECTOR OF MANAGED SERVICES Service: ? Author Type: Nurse Practitioner Type: Progress Notes Filed: 07/04/2023 11:26 AM Note Text: [facility] - Follow up Virtual Visit This visit was conducted as a virtual visit, with patient's permission, via Zoom. Patient location - [place], [place] Susana Loyola was identified by name and and consented to the video evaluation and its limitations. Based on this evaluation it may be necessary for them to schedule a follow up evaluation with me or other neurologists for formal physical examination and if necessary,other studies. I have communicated my name and active licensure. The patient's identity and physical location were verified at the time of this visit. Either the patient or their legal architectural representative has been informed of the risks and benefits of -- and alternatives to -- treatment through a remote evaluation and consents to proceed with the evaluation remotely. Accompanied by: Self Primary Problem List: ACTIVE PROBLEM LIST Chronic Migraine Without Aura, With Intractable Migraine, So Stated, With Status Migrainosus Intractable Chronic Migraine Without Aura and Without Status Migrainosus Chronic Daily Headache Medication Overuse Headache Rebound Headache Hemicrania Continua Chronic Hypertension in Chronic Pain of Both Hips Migraine Without Aura and Without Status Migrainosus, Not Intractable Bipolar II Disorder, Most Recent Episode Major Depressive (Hcc) Generalized Anxiety Disorder Hypertension, Essential Gerd Without Esophagitis Chief Complaint: Follow up Impression and Plan from last visit: 06/11/2022 w/ Cyndie Delgado APRN.DIRECTOR OF MANAGED SERVICES IMPRESSION: Migraine without aura and without status migrainosus, not intractable (primary encounter diagnosis) Susana Loyola is a 41 year old year old female, with a history of episodic migraine without aura, L eye glaucoma/cataract, anxiety, depression, Her headaches are infrequent, they increase in Spring AND Fall . PLAN: Verapamil 120 mg ER daily bedtime Refilled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 of contacts for counseling for stress and anxiety, Anemia during in third trimester 08/0607/15/2020 Overview: Iron supplementation Supervision of high risk pre gnancy, antepartum, unspecified trimester 08/02/2019 11/01/2019 Advanced maternal age in multigravida, unspecifi ed trimester 08/02/2019 11/16/2019 39 weeks gestation of 08/02/2019 11/01/2019 Cervical dysplasia complicating , antep artum 08/02/2019 07/15/2020 with care elsewhere, antepart um 08/02/2019 01/19/2020 Abnormal O'Li glucose challenge test, ante 07/23/2019 11/16/2019 Overview: 3 hr GTT borderline Pain in left hip 07/08/2019 09/23/2020 Pain in right hip 07/08/2019 09/23/2020 Pelvic pain 02/14/2012 07/15/2020 Exposure to sexually transmitted disease (STD) 0 02/14/2012 07/15/2020 documented as of this encounter (statuses as of 05/03/2022) [facility] Narrative* Problem Noted Date Resolved Date Anxiety during 08/10/2019 020 Overview: Sees an advisor at [facility], has a list of contacts for counseling for stress and anxiety, Anemia during in third trimester 08/0607/15/2020 Overview: Iron supplementation Supervision of high risk pre gnancy, antepartum, unspecified trimester 08/02/2019 11/01/2019 Advanced maternal age in multigravida, unspecifi ed trimester 08/02/2019 11/16/2019 39 weeks gestation of 08/02/2019 11/01/2019 Cervical dysplasia complicating , antep artum 08/02/2019 07/15/2020 with care elsewhere, antepart um 08/02/2019 01/19/2020 Abnormal O'Li glucose challenge test, ante 07/23/2019 11/16/2019 Overview: 3 hr GTT borderline Pain in left hip 07/08/2019 09/23/2020 Pain in right hip 07/08/2019 09/23/2020 Pelvic pain 02/14/2012 07/15/2020 Exposure to sexually transmitted disease (STD) 0 02/14/2012 07/15/2020 documented as of this encounter (statuses as of 06/11/2022) [facility] Narrative* Problem Noted Date Resolved Date Anxiety during 08/10/2019 020 Overview: Sees an advisor at [facility], has a list of contacts for counseling for stress and anxiety, Anemia during in third trimester 08/0607/15/2020 Overview: Iron supplementation Supervision of high risk pre gnancy, antepartum, unspecified trimester 08/02/2019 11/01/2019 Advanced maternal age in multigravida, unspecifi ed trimester 08/02/2019 11/16/2019 39 weeks gestation of 08/02/2019 11/01/2019 Cervical dysplasia complicating , antep artum 08/02/2019 07/15/2020 with care elsewhere, antepart um 08/02/2019 01/19/2020 Abnormal O'Li glucose challenge test, ante 07/23/2019 11/16/2019 Overview: 3 hr GTT borderline Pain in left hip 07/08/2019 09/23/2020 Pain in right hip 07/08/2019 09/23/2020 Pelvic pain 02/14/2012 07/15/2020 Exposure to sexually transmitted disease (STD) 0 02/14/2012 07/15/2020 documented as of this encounter (statuses as of 11/12/2022) [facility] Narrative* Problem Noted Date Diagnosed Date Resolved Date Anxiety during 08/10/2019 Overview: Sees an advisor at [facility], has a list of contacts for counseling for stress and anxiety, Anemia during in third trimester 08/06/2019 07/15/2020 Overview: Iron supplementation Supervision of high risk pre gnancy, antepartum, unspecified trimester 08/02/20192019 Advanced maternal age in [facility], unspecified trimester 08/02/2019 11/16/2019 39 weeks gestation of 08/02/2019 11/01/2019 Cervical dysplasia complicat ing , antepartum 08/02/2019 07/15/2020 with care elsewhere, antepartum 08/02/2019 01/19/2020 Abnormal O'Li glucose challenge test, antepartum 07/23/2019 11/16/2019 Overview: 3 hr GTT borderline Pain in left hip 07/08/2019 09/23/2020 Pain in right hip 07/08/2019 09/23/2020 Pelvic pain 02/14/2012 07/15/2020 Exposure to sexually transmi tted disease (STD) 02/14/2012 07/15/2020 documented as of this encounter (statuses as of 07/01/2023) [facility] Narrative* Problem Noted Date Diagnosed Date Resolved Date Anxiety during 08/10/2019 Overview: Sees an advisor at [facility], has a list of contacts for counseling for stress and anxiety, Anemia during in third trimester 08/06/2019 07/15/2020 Overview: Iron supplementation Supervision of high risk pre gnancy, antepartum, unspecified trimester 08/02/20192019 Advanced maternal age in [facility], unspecified trimester 08/02/2019 11/16/2019 39 weeks gestation of 08/02/2019 11/01/2019 Cervical dysplasia complicat ing , antepartum 08/02/2019 07/15/2020 with care elsewhere, antepartum 08/02/2019 01/19/2020 Abnormal O'Li glucose challenge test, antepartum 07/23/2019 11/16/2019 Overview: 3 hr GTT borderline Pain in left hip 07/08/2019 09/23/2020 Pain in right hip 07/08/2019 09/23/2020 Pelvic pain 02/14/2012 07/15/2020 Exposure to sexually transmi tted disease (STD) 02/14/2012 07/15/2020 documented as of this encounter (statuses as of 10/28/2023) [facility] noteNo InformationNort Mercateo Other Evaluation noteNo assessment information available [facility] Work Phone: Evaluation note* Diagnosis Migraine without aura and without status migrainosus, not intractable- Primary Migraine without aura, without mention of intractable migraine without mention of status migrainosus documented in this encounter [facility] note* Diagnosis Encounter for screening mammogram for breast cancer documented in this encounter [facility] note* Diagnosis Encounter for screening mammogram for breast cancer documented in this encounter [facility] note* Diagnosis Cervicogenic migraine (CMS/HCC)- Primary Migraine, unspecified, without mention of intractable migraine without mention of status migrainosus documented [facility] - Reported* Type Description Date Medical History HTN Medical History Anxiety Medical History bi polar disorder Medical History hpv Medical History migraine Medical History juvenile rheumatoid arthritis Medical History cataracts Medical History glaucoma Surgical History right arm Surgical History deviated spetum and polyps Surgical History cataract Surgical History glaucoma [facility] Other Hospital Discharge instructions Additional Instructions If your knee continues to swell, you should see the orthopedics doctor as we discussed. The number is provided. Rest and ice (15 minutes at a time) while you are home and not working. If you have any concerns or problems, we are happy to see you when you need us.[facility] Work Phone: Reason for referral (narrative)* Diagnostic Procedure Only (Routine) - Pending Review Specialty Diagnoses / Procedures Referred By Sami zafar Referred To Contact [facility] Diagnoses Encounter for screening mammogram for breast cancer Procedures KINGSLEY SCREENING SCREENING MAMMOGRAPHY BI 2-VIEW BREAST INC Shruthi Ramirez MD [address] [place] [address] [facility] [address] [place] [address] Referral ID Status Reason Start Date Expiration Date Visits Requested Visits Authorized [id number] Pending Review Auto-Generat ed Referral 11/07/2022 12/07/2023 1 1 [facility] for referral (narrative)* Diagnostic Procedure Only (Routine) - Pending Review Specialty Diagnoses / Procedures Referred By Sami zafar Referred To Contact [facility] Diagnoses Encounter for screening mammogram for breast cancer Procedures KINGSLEY SCREENING SCREENING MAMMOGRAPHY BI 2-VIEW BREAST INC Shruthi Ramirez MD [address] [place] [address] [facility] [address] [place] [address] Referral ID Status Reason Start Date Expiration Date Visits Requested Visits Authorized [id number] Pending Review Auto-Generat ed Referral 10/23/2023 11/21/2024 1 1 [facility] for visit NarrativeREFERRAL FOR DEPRESSION/FELLNort Mercateo Other Summary Purpose Family History Grandmother Name Dates Details Family history of lung cance r(V16.1, Z80.1) Status:Active Grandmother Name Dates Details Family history of cardiac di sorder(V17.49, Z82.49) Status:Active Mother Name Dates Details Family history of hypertensi on(V17.49, Z82.49) Status:Active Father Name Dates Details Family history of hypertensi on(V17.49, Z82.49) Status:Active Family history of alcoholism (V17.0, Z81.1) Status:Active Grandmother Name Dates Details Family history of lung cance r(V16.1, Z80.1) Status:Active Grandmother Name Dates Details Family history of cardiac di sorder(V17.49, Z82.49) Status:Active Mother Name Dates Details Family history of hypertensi on(V17.49, Z82.49) Status:Active Father Name Dates Details Family history of hypertensi on(V17.49, Z82.49) Status:Active Family history of alcoholism (V17.0, Z81.1) Status:Active Grandmother Name Dates Details Family history of lung cance r(V16.1, Z80.1) Status:Active Grandmother Name Dates Details Family history of cardiac di sorder(V17.49, Z82.49) Status:Active Mother Name Dates Details Family history of hypertensi on(V17.49, Z82.49) Status:Active Father Name Dates Details Family history of hypertensi on(V17.49, Z82.49) Status:Active Family history of alcoholism (V17.0, Z81.1) Status:Active Grandmother Name Dates Details Family history of lung cance r(V16.1, Z80.1) Status:Active Grandmother Name Dates Details Family history of cardiac di sorder(V17.49, Z82.49) Status:Active Mother Name Dates Details Family history of hypertensi on(V17.49, Z82.49) Status:Active Father Name Dates Details Family history of hypertensi on(V17.49, Z82.49) Status:Active Family history of alcoholism (V17.0, Z81.1) Status:Active Relationship Condition Age at Onset Recorded Date/T natalio father Hypertension Unknown mother Hypertension Unknown Advance Directives Documents on File Type Date Recorded 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 Advance Directive(s) 08/13/2020 9:05 AM Advance Directive(s) 10/08/2019 6:02 PM Advance Directive(s) 10/08/2019 7:44 PM Advance Directive(s) 08/31/2010 3:51 PM Advance Directive(s) 05/24/2010 5:51 PM Documents on File Type Date Recorded 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 Advance Directive(s) 08/31/2010 3:51 PM Advance Directive(s) 05/24/2010 5:51 PM Advance Directive Response Recorded Date/ Time Advance Directives No December 20, 2 021 11:14am Documents on File Type Date Recorded 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 Reji Tompkins Referring Provider First Name Nunu Referring Provider Last Name Janice Referring Provider Specialty Nurse Pract itioner Referred Organization [facility] Referred Address [address] [place] [address] ER[place], [place], [place],[address] Referred Provider Specialty Neurology Referral Priority Routine General Notes Charlene Webb 01:22:54 PM >referral received and faxed Additional Source Comments INFORMATION SOURCE (unrecogn ized section and content) DATE CREATED AUTHOR 02/25/2018 [facility] DATE CREATED AUTHOR AUTHOR'S ORGANIZ ATION 11/14/2018 [facility] DATE CREATED AUTHOR AUTHOR'S ORGANIZ ATION 12/20/2018 [facility] DATE CREATED AUTHOR AUTHOR'S ORGANIZ ATION 08/06/2019 [facility] DATE CREATED AUTHOR AUTHOR'S ORGANIZ ATION 08/13/2019 [facility] DATE CREATED AUTHOR AUTHOR'S ORGANIZ ATION 08/17/2019 [facility] DATE CREATED AUTHOR AUTHOR'S ORGANIZ ATION 10/27/2019 [facility] DATE CREATED AUTHOR AUTHOR'S ORGANIZ ATION 11/17/2020 [facility] DATE CREATED AUTHOR AUTHOR'S ORGANIZ ATION 10/26/2021 [facility] DATE CREATED AUTHOR AUTHOR'S ORGANIZ ATION 12/04/2021 [facility] DATE CREATED AUTHOR AUTHOR'S ORGANIZ ATION 09/10/2022 [facility] DATE CREATED AUTHOR AUTHOR'S ORGANIZ ATION 07/05/2023 [facility] DATE CREATED AUTHOR AUTHOR'S ORGANIZ ATION 01/25/2024 [facility] DATE CREATED AUTHOR AUTHOR'S ORGANIZ ATION 11/02/2024 [facility] Source Comments (unrecognize d section and content) In the event this informatio n is protected by the Federal Confidentiality of Alcohol and Drug Abuse Patient Records regulations: The Federal rules restrict any use of the information to criminally investigate or prosecute any alcohol or drug abuse patient.[facility] the event this information is protected by the Federal Confidentiality of Alcohol and Drug Abuse Patient Records regulations: The Federal rules restrict any use of the information to criminally investigate or prosecute any alcohol or drug abuse patient.[facility] the event this information is protected by the Federal Confidentiality of Alcohol and Drug Abuse Patient Records regulations: The Federal rules restrict any use of the information to criminally investigate or prosecute any alcohol or drug abuse patient.[facility] the event this information is protected by the Federal Confidentiality of Alcohol and Drug Abuse Patient Records regulations: The Federal rules restrict any use of the information to criminally investigate or prosecute any alcohol or drug abuse patient.[facility] the event this information is protected by the Federal Confidentiality of Alcohol and Drug Abuse Patient Records regulations: The Federal rules restrict any use of the information to criminally investigate or prosecute any alcohol or drug abuse patient.[facility] the event this information is protected by the Federal Confidentiality of Alcohol and Drug Abuse Patient Records regulations: The Federal rules restrict any use of the information to criminally investigate or prosecute any alcohol or drug abuse patient.[facility] the event this information is protected by the Federal Confidentiality of Alcohol and Drug Abuse Patient Records regulations: The Federal rules restrict any use of the information to criminally investigate or prosecute any alcohol or drug abuse patient.[facility] Reason for Visit (unrecogniz ed section and content) Reason Onset Date Comments Refill Request 02/12/2022 Reason Onset Date Comments Refill Request 02/14/2022 Reason Onset Date Comments Refill Request 05/03/2022 Reason Comments Migraine Reason Onset Date Comments Refill Request 07/01/2023 Reason Comments Migraine Care Teams (unrecognized sec tion and content) Team Status: Active Member Role Status Dates Nunu Camacho DNP Primary Care Provider Active Team Status: Inactive Member Role Status Dates Nunu Camacho DNP Primary Care Provider, Attending Provider Active Brand Protection Manager Relationship Specialty Start Date End Date Shruthi Gonzalez MD [address] [place] [address] PCP - General Family Practice 04/18/20 Nunu Camacho DIRECTOR OF MANAGED SERVICES Referring Family Practice 12/20/20 Brand Protection Manager Relationship Specialty Start Date End Date Shruthi Gonzalez MD [address] [place] [address] PCP - General Family Practice 04/18/20 Nunu Camacho, DIRECTOR OF MANAGED SERVICES Referring Family Practice 12/20/20 Brand Protection Manager Relationship Specialty Start Date End Date Shruthi Gonzalez MD [address] [place] [address] PCP - General Family Practice 04/18/20 Nunu Camacho DIRECTOR OF MANAGED SERVICES Referring Family Practice 12/20/20 Team Status: Inactive Member Role Status Dates Nunu Camacho DNP Primary Care Provider Active Riley Phelan Jr, MD Emergency Provider Active Brand Protection Manager Relationship Specialty Start Date End Date Shruthi Gonzalez MD [address] [place] [address] PCP - General Family Medicine 04/18/20 Nunu Camacho, DIRECTOR OF MANAGED SERVICES Referring Family Medicine 12/20/20 Brand Protection Manager Relationship Specialty Start Date End Date Bozena Carlson [address] [place] [address] PCP - General Family Medicine 05/03/16 Brand Protection Manager Relationship Specialty Start Date End Date Shruthi Gonzalez MD [address] [place] [address] PCP - General Family Medicine 04/18/20 Nunu Camacho, DIRECTOR OF MANAGED SERVICES [address] [place] [address] Referring Family Medicine 12/20/20 Brand Protection Manager Relationship Specialty Start Date End Date RobynBozena jordan [address] [place] [address] PCP - General Family Medicine 05/03/16 Brand Protection Manager Relationship Specialty Start Date End Date Shruthi Gonzalez MD [address] [place] [address] PCP - General Family Medicine 04/18/20 Nunu Camacho, DIRECTOR OF MANAGED SERVICES [address] [place] [address] Referring Family Medicine 12/20/20 Brand Protection Manager Relationship Specialty Start Date End Date Bozena Carlson DO [facility] [place] [address] PCP - General Family Medicine 05/03/16 Brand Protection Manager Relationship Specialty Start Date End Date Shruthi Gonzalez MD [address] [place] [address] PCP - General Family Medicine 04/18/20 Nunu Camacho, DIRECTOR OF MANAGED SERVICES [address] [place] [address] Referring Family Medicine 12/20/20 Brand Protection Manager Relationship Specialty Start Date End Date Unallocated, Sheila Negrete MD [address] [place] [address] PCP - General 06/15/23 Nunu Camacho IT OPERATIONS SPECIALIST [address] [place] [id number] 02/12/23 David Saleem MD [address] [place] [address] Referring Physician Neurology 11/20/23 Team Status: Inactive Member Role Status Dates Nunu Camacho DNP Primary Care Provider Active Start: October 20, 2024 End: October 20, 2024 Zackary Espinoza DO Emergency Provider Active St art: October 20, 2024 End: October 20, 2024 Brand Protection Manager Relationship Specialty Start Date End Date Unallocated, Sheila Negrete MD [address] [place] [address] PCP - General 06/15/23 Nunu Camacho IT OPERATIONS SPECIALIST [address] [facility] [place] [address] 02/12/23 David Saleem MD [address] [place] [address] Referring Physician Neurology 11/20/23 Goals (unrecognized section and content) Goals may be documented in a n alternate section FOR RECORDS PERTAINING TO PATIENTS WHO ARE OR HAVE BEEN ENROLLED IN A CHEMICAL DEPENDENCY/SUBSTANCEABUSE PROGRAM, SOME INFORMATION MAY BE OMITTED. This clinical summary was aggregated from multiple sources. Caution should be exercised in using it in the provision of clinical care. This summary normalizes information from multiple sources, and as a consequence, information in this document may materially change the coding, format and clinical context of patient data. In addition, data may be omitted in some cases. CLINICAL DECISIONS SHOULD BE BASED ON THE PRIMARY CLINICAL RECORDS. [employer] provides no warranty or guarantee of the accuracy or completeness of information in this document.
--- NOTE | 2024-11-12 07:58 | XR_ITS ---
The [address] [address] Patient Name: SUSANA LOYOLA MRN: [id number] date: 1980 Sex: F Assigned Patient Location: ED.MAIN Current Patient Location: Accession/Order Number: [id number] Exam Date: 11/12/2024 08:45 Report Date: 11/12/2024 08:51 At the request of: ZEB CRUM MD Procedure: XR chest 1V PORTABLE AP ERECT CHEST 0808 hours CLINICAL HISTORY: cough and sinus congestion for the past week COMPARISON: None The heart is within normal limits. There is minor coarsening of interstitial markings at the lung bases. No focal consolidation is noted.. There is no effusion or pneumothorax. The osseous structures are intact. XR/XR chest 1V IMPRESSION: MINIMAL COARSENING OF BASILAR LUNG MARKINGS, UNKNOWN CHRONICITY WITHOUT PRIORS. NO OTHER ACUTE FINDINGS Impression dictated by: Arti Guardado M.D.11/12/2024 8:51 AM Dictation Location: [place] [address] Electronically authenticated by: [id number] Y Date: 11/12/2024 08:51
--- NOTE | 2024-11-12 07:58 | ED.GENADUL1 ---
HPI HPI - General Adult General Chief complaint: Upper Respiratory Infection Stated complaint: COUGH CHILLS Time Seen by Provider: 11/12/24 07:49 Source: patient Mode of arrival: walk-in Limitations: no limitations History of Present Illness HPI narrative: 44-year-old female presents to the emergency department for a cough. She has had it for a week and she was on a telemetry doc call today and they told her she probably has pneumonia and to go to the emergency department. She has been coughing up some phlegm but she swallows it and has not seen it. No fever or hemoptysis. Related Data Home Medications ?Medication ?Instructions ?Recorded ?Confirmed fluticasone propionate 50 1 spray intranasal 06/25/23 mcg/actuation nasal spray,suspension rizatriptan 10 mg tablet mg 06/25/23 Previous Rx's ?Medication ?Instructions ?Recorded ibuprofen 600 mg tablet 600 mg PO TID PRN pain #20 tabs 06/25/23 azithromycin 250 mg tablet See Rx Instructions PO .COMPLEX #6 11/12/24 (Zithromax Z-Johny) tabs benzonatate 100 mg capsule 100 mg PO TID PRN cough #20 caps 11/12/24 Allergies Allergy/AdvReac Type Severity Reaction Status Date / Time Penicillins Allergy Intermediate Anaphylaxis Verified 11/12/24 07:42 Sulfa (Sulfonamide Allergy Intermediate Anaphylaxis Verified 11/12/24 07:42 Antibiotics) Opioid HPI Opioid Management Most Recent Opioid Data: No Data to Display Review of Systems ROS Narrative A ten point review of systems is negative except as noted above. PFSH PFSH Social History Smoking status: Current every day smoker Little interest or pleasure in doing things: not at all Feeling down, depressed, or hopeless: not at all Exam Narrative Exam Narrative: Nurses note and vital signs reviewed and patient is not hypoxic. General: The patient appears well and in no apparent distress. Patient is resting comfortably on cart. Skin: Warm, dry, no pallor noted. There is no rash noted. Head: Normocephalic, atraumatic Eye: Normal conjunctiva, no drainage Ears, Nose, Mouth, and Throat: oral mucosa is moist. Nares patent. Cardiovascular: Regular Rate and Rhythm Respiratory: Patient is in no distress, no accessory muscle use, lungs are clear to auscultation, no wheezing, rales or rhonchi. She coughs occasionally. Back: non-tender GI: Soft and nontender Musculoskeletal: The patient has no evidence of calf tenderness, no pitting edema, symmetrical pulses noted bilaterally Neurological: A&O, normal speech Psychiatric: Cooperative Constitutional Vital Signs, click to edit/add: Last Vital Signs Temp 98.3 F 11/12/24 07:45 Pulse 88 11/12/24 07:45 Resp 20 11/12/24 07:45 BP 133/88 11/12/24 07:45 Pulse Ox 98 11/12/24 07:45 O2 Del Method Room Air 11/12/24 07:45 Course Vital Signs Vital signs: Vital Signs Temperature 98.3 F 11/12/24 07:45 Pulse Rate 88 11/12/24 07:45 Respiratory Rate 20 11/12/24 07:45 Blood Pressure 133/88 11/12/24 07:45 Pulse Oximetry 98 11/12/24 07:45 Oxygen Delivery Method Room Air 11/12/24 07:45 Temperature 98.3 F 11/12/24 07:45 Pulse Rate 88 11/12/24 07:45 Respiratory Rate 20 11/12/24 07:45 Blood Pressure 133/88 11/12/24 07:45 Pulse Oximetry 98 11/12/24 07:45 Oxygen Delivery Method Room Air 11/12/24 07:45 Medical Decision Making MDM Narrative Medical decision making narrative: COVID and influenza are negative. Chest x-ray my interpretation shows no infiltrates. She will be prescribed Zithromax and Tessalon. Treatment diagnosis and follow-up were discussed with the patient. Differential Diagnosis Differential Diagnosis: COVID, influenza, pneumonia, URI Lab Data Lab results reviewed: Yes I reviewed the patient's lab results Labs: Lab Results 11/12/24 Range/Units 07:50 Influenza Type A Ag Negative Influenza Type B Ag Negative SARS-CoV-2 Ag (CV2AG) Negative (NEGATIVE) Imaging Data Chest x-ray: My impression: No infiltrates Discharge Plan Discharge Chief Complaint: Upper Respiratory Infection Clinical Impression: Upper respiratory infection Patient Disposition: Home, Self-Care Time of Disposition Decision: 08:34 Condition: Good Mode of Transportation: Private Vehicle Prescriptions / Home Meds: New azithromycin [Zithromax Z-Johny] 250 mg tablet See Rx Instructions .ROUTE .COMPLEX Qty: 6 0RF Rx Instructions: For 250 mg dose pack: take 500 mg today (day 1), then 250 mg for 4 days (days 2-5) benzonatate 100 mg capsule 100 mg PO TID PRN (Reason: cough) Qty: 20 0RF No Action rizatriptan 10 mg tablet fluticasone propionate 50 mcg/actuation spray,suspension 1 spray INTRANASAL ibuprofen 600 mg tablet 600 mg PO TID PRN (Reason: pain) Qty: 20 0RF Print Language: Greenlandic Referrals: Physician,Non-Staff, MD [Primary Care Provider] - 1 week
[2024-11-12 08:13] LABS: Influenza Virus A Antigen Negative; Influenza Virus B Antigen Negative; Internal Control Within Normal Limits; SARS-CoV-2 Ag NEGATIVE (NEGATIVE)
== END 2024-11-12 08:37 | disposition home or self-care (01) ==
PROVIDERS: Emergency Provider Emergency Medicine
DX: J06.9 Acute upper respiratory infection, unspecified (principal); F17.200 Nicotine dependence, unspecified, uncomplicated
CPT/HCPCS: 71045; 87804; 87811; 99285